=== PATIENT | female | born 1975 | race Caucasian/White ===

== ENCOUNTER 2018-06-23 16:12 | Emergency (ER) | payer OTHER, MEDICAID, SELFPAY | END 2018-06-23 19:31 | disposition left against medical advice (07) | DX: N63.10 Unspecified lump in the right breast, unspecified quadrant (principal) | CPT/HCPCS: 99281 ==

== ENCOUNTER 2018-10-11 11:54 | Emergency (ER) | payer OTHER, MEDICAID, SELFPAY ==
[2018-10-11 11:57] VITALS: BP 136/71; PULSE 92; RESP 14; TEMP 36.7; O2SAT 98; BMI 18.4
--- NOTE | 2018-10-11 12:02 | DI.RAD.S_ITS ---
PROCEDURE: XR WRIST RT MIN 3V INDICATIONS: slammed right wrist in door. TECHNIQUE: 4 views of the wrist were acquired. COMPARISON: None. FINDINGS: Bones: No fractures or dislocations. No suspicious bony lesions. Scaphoid view: Negative Soft tissues: No suspicious soft tissue calcifications. IMPRESSION: No acute fracture. No osseous lesion. If clinical suspicion and/or symptoms persist, further assessment with repeat plainfilms, or advanced imaging (e.g., CT, MRI, or bone scan) may be helpful for further assessment. Dictated by: Fazal Barragan M.D. on 10/11/2018 at 12:15 Approved by: Fazal Barragan M.D. on 10/11/2018 at 12:15
--- NOTE | 2018-10-11 12:57 | ED.UPPEXIN ---
HPI - Extremity Injury (Upper) <Glenys Lea PA-C - Last Filed: 10/11/18 15:35> General Chief Complaint: Extremity Injury, Upper Stated Complaint: RIGHT ARM SLAMMED IN DOOR Time Seen by Provider: 10/11/18 13:12 Source: patient Mode of arrival: ambulatory Limitations: no limitations History of Present Illness HPI narrative: This 43-year-old female comes to ED due to persistent right wrist pain. She is right handed. She states that her son was coming out of the bathroom and she was right behind the door, and he accidentally slammed her wrist in the door. This occurred yesterday, and she states that she has had pain since that is not getting better. She has been taking Tylenol and Motrin, and Negrito wrapped the wrist. She states range of motion really limited secondary to tenderness. She states no pain in her hand or fingers, no numbness or weakness or tingling, states it is pain that prevents her from movement. Related Data Home Medications Medication Instructions Recorded Confirmed bupropion HCl 2 tab PO QAM 06/23/18 10/11/18 dextroamphetamine-amphetamine 1 tab PO BID 06/23/18 10/11/18 hydroxyzine pamoate 1 cap PO TID PRN 06/23/18 10/11/18 quetiapine 1 tab PO BEDTIME 06/23/18 10/11/18 Previous Rx's Medication Instructions Recorded hydrocodone-acetaminophen [[place]] 1 tab PO Q4-6H PRN #4 tab 10/11/18 Allergies Allergy/AdvReac Type Severity Reaction Status Date / Time aspirin Allergy Intermediate Hives Verified 10/11/18 12:01 Review of Systems <Glenys Lea PA-C - Last Filed: 10/11/18 15:35> Review of Systems ROS Unobtainable: All systems reviewed & are unremarkable except as noted in HPI and below PFSH <Glenys Lea PA-C - Last Filed: 10/11/18 15:35> Comment: quit tob 2017, no etoh, previous drug abuse, abstinent since 2014 Exam <PAULINE Seaman Last Filed: 10/11/18 15:35> Narrative Exam Narrative: GENERAL APPEARANCE: Patient sitting comfortably, in no distress. LUNGS: Clear to auscultation bilaterally. HEART: Rate and rhythm regular without murmur, normal S1 and S2, no S3 or S4. MUSCULOSKELETAL: Perhaps trace right wrist effusion. None elsewhere. Tender over the right anterior wrist most on the medial side. Range of motion is limited secondary to tenderness. There is no tenderness over the carpal bones or fingers nor over the forearm proximal to the wrist. She holds the fingers slightly flexed, tender with full extension but able. Strength in the fingers appears intact against resistance in all tran but tender with resisted motion NEUROVASCULAR: Right hand fingers are warm and pink with brisk cap refill, sensation is grossly intact Initial Vital Signs Initial Vital Signs: Vital Signs Temperature 98.1 F 10/11/18 11:57 Pulse Rate 92 H 10/11/18 11:57 Respiratory Rate 14 10/11/18 11:57 Blood Pressure 136/71 10/11/18 11:57 Pulse Oximetry 98 10/11/18 11:57 <DO Jatin Hillman Last Filed: 10/11/18 18:55> Initial Vital Signs Initial Vital Signs: Vital Signs Temperature 98.1 F 10/11/18 11:57 Pulse Rate 92 H 10/11/18 11:57 Respiratory Rate 14 10/11/18 11:57 Blood Pressure 136/71 10/11/18 11:57 Pulse Oximetry 98 10/11/18 11:57 Course <PAULINE Seaman Last Filed: 10/11/18 15:35> Orders Ordered: ED Orders 10/11/18 12:02 XR wrist RT min 3V Stat Vital Signs - 8 hr 10/11/18 11:57 10/11/18 13:36 Temperature 98.1 F Pulse Rate 92 H 92 H Respiratory Rate 14 16 Blood Pressure 136/71 Pulse Oximetry 98 98 <DO Jatin Hillman Last Filed: 10/11/18 18:55> Orders Ordered: ED Orders 10/11/18 12:02 XR wrist RT min 3V Stat Vital Signs - 8 hr 10/11/18 11:57 10/11/18 13:36 Temperature 98.1 F Pulse Rate 92 H 92 H Respiratory Rate 14 16 Blood Pressure 136/71 Pulse Oximetry 98 98 MDM - Extremity Injury (Upper) <PAULINE Seaman Last Filed: 10/11/18 15:35> Imaging Data wrist: Radiologist's impression: [address] [address] XRay Report Signed Patient: Allison Gay DMR#: [id number] : 1975Acct:[id number] Age/Sex: 43 / FDate of Service: 10/11/18 Loc: ED Accession Number: [id number] Procedure: XR wrist RT min 3V Ordering Provider: Nilton Johnson D.O. PROCEDURE: XR WRIST RT MIN 3V INDICATIONS: slammed right wrist in door. TECHNIQUE: 4 views of the wrist were acquired. COMPARISON: None. FINDINGS: Bones: No fractures or dislocations. No suspicious bony lesions. Scaphoid view: Negative Soft tissues: No suspicious soft tissue calcifications. IMPRESSION: No acute fracture. No osseous lesion. If clinical suspicion and/or symptoms persist, further assessment with repeat plainfilms, or advanced imaging (e.g., CT, MRI, or bone scan) may be helpful for further assessment. Dictated by: Fazal Barragan M.D. on 10/11/2018 at 12:15 Approved by: Fazal Barragan M.D. on 10/11/2018 at 12:15 Discharge Plan Departure Patient Disposition: Home Clinical Impression: Contusion of right wrist, initial encounter Discharge Date/Time: 10/11/18 13:38 Interventions: ED Discharge Assessment Last Done: 10/11/18 13:36 Instructions: DI for Wrist Sprain Activity Restrictions/Additional Instructions: please return if you have acutely worsening symptoms. Otherwise, please wear the wrist splint /. Continue ibuprofen every 8 hr. Use ice as needed. You should follow up with your PCP in about a week to reassess, and you should have repeat x-rays if not getting better by that time. I have given you a few pain pills to use in the next couple of days, i.e. at bedtime if needed. Remember not to take these and drive as they could make you sleepy. Prescriptions: New hydrocodone-acetaminophen [[place]] 5-325 mg tablet 1 tab PO Q4-6H PRN (Reason: acute wrist pain) Qty: 4 RF: 0 No Action bupropion HCl 150 mg tablet extended release 12 hr 2 tab PO QAM RF: 0 dextroamphetamine-amphetamine 10 mg tablet 1 tab PO BID RF: 0 hydroxyzine pamoate 25 mg capsule 1 cap PO TID PRN (Reason: Anxiety) RF: 0 quetiapine 400 mg tablet 1 tab PO BEDTIME RF: 0 Referrals: Juan Luis Torres ARNP [Non-Staff] - <Nilton Johnson DO - Last Filed: 10/11/18 18:55> Cosign ED Attending Carmen Attestation: I was available for consultation during this patient's emergency department encounter
[2018-10-11 13:36] VITALS: PULSE 92; RESP 16; O2SAT 98
== END 2018-10-11 13:38 | disposition home or self-care (01) ==
PROVIDERS: Emergency Provider Internal Medicine
DX: S60.211A Contusion of right wrist, initial encounter (principal); W23.0XXA Caught, crushed, jammed, or pinched between moving objects, initial encounter
CPT/HCPCS: 73110; 99283

== ENCOUNTER 2018-12-16 18:57 | Emergency (ER) | payer OTHER, MEDICAID, SELFPAY ==
[2018-12-16 18:59] VITALS: BP 152/93; PULSE 105; RESP 16; TEMP 36.9; O2SAT 98; BMI 30.8
--- NOTE | 2018-12-16 19:25 | ED.ABDPAIN ---
HPI - Abdominal Pain <Glenys Lea PA-C - Last Filed: 12/16/18 22:34> General Chief Complaint: Abdominal Pain Stated Complaint: ABDOMINAL PAIN Time Seen by Provider: 12/16/18 19:25 Source: patient Mode of arrival: ambulatory Limitations: no limitations History of Present Illness HPI narrative: This 43-year-old female comes in due to abdominal pain that started this morning and has progressively worsened throughout the day. She describes this as a crampy pain initially, constant, worse with movement and car ride, a little bit better lying flat. She states that she kept down some water and coffee earlier this morning but has not had anything else to eat or drink today. She does not have any nausea or vomiting currently. She has had some chills and felt warm today but no known fever. She denies any urinary symptoms or hematuria. She denies any bowel habit changes or blood in the stools and had a normal bowel movement today. She states that she does have some headache. she states that she has had some sinus congestion the last couple of days. Her son had the flu last week. She has not had any cough or body aches. No chest pain or dyspnea or any other new complaints on systems review. She states pain is in the lower abdomen somewhat more on the right side. She denies any possibility of , monogamous with her Related Data Home Medications Medication Instructions Recorded Confirmed bupropion HCl 2 tab PO QAM 06/23/18 10/11/18 dextroamphetamine-amphetamine 1 tab PO BID 06/23/18 10/11/18 hydroxyzine pamoate 1 cap PO TID PRN 06/23/18 10/11/18 quetiapine 1 tab PO BEDTIME 06/23/18 10/11/18 Previous Rx's Medication Instructions Recorded hydrocodone-acetaminophen [Gable] 1 tab PO Q4-6H PRN #4 tab 10/11/18 oseltamivir [Tamiflu] 75 mg PO Q12H 5 Days #9 cap 12/16/18 Allergies Allergy/AdvReac Type Severity Reaction Status Date / Time aspirin Allergy Intermediate Hives Verified 10/11/18 12:01 Review of Systems <Glenys Lea PA-C - Last Filed: 12/16/18 22:34> Review of Systems ROS Unobtainable: All systems reviewed & are unremarkable except as noted in HPI and below PFSH <Glenys Lea PA-C - Last Filed: 12/16/18 22:34> Medical History ADHD (attention deficit hyperactivity disorder) evaluation (Chronic) Bipolar disorder (Chronic) Surgical History History of (Resolved) Family History (Updated 10/11/18 @ 15:31 by Glenys Lea PA-C) Other Family history non-contributory Social History Smoking Status: Former smoker Family History (Updated 10/11/18 @ 15:31 by Glenys Lea PA-C) Other Family history non-contributory Social History Smoking Status: Former smoker Exam <Glenys Lea PA-C - Last Filed: 12/16/18 22:34> Narrative Exam Narrative: GENERAL APPEARANCE: Patient resting comfortably, in no distress. HEENT: PERRL, EOMI, no scleral icterus, conjunctivae pink NECK: Supple LUNGS: Clear to auscultation bilaterally. HEART: Rate and rhythm regular, normal S1 and S2, no S3 or S4. ABDOMEN: Soft, nondistended, bowel sounds present x 4 quadrants, no masses palpable, no hepatosplenomegaly. moderate generalized tenderness to palpation, most right lower quadrant where there is some rebound. also tender right upper quadrant, +Rg sign. no guarding or rebound on the left side. Mild right CVAT.+ Joesph and obturator EXTREMITIES: No edema DERMATOLOGIC: No jaundice or exanthem NEUROLOGIC: Alert and oriented with normal speech and coordination Initial Vital Signs Initial Vital Signs: Vital Signs Temperature 98.5 F 12/16/18 18:59 Pulse Rate 105 H 12/16/18 18:59 Respiratory Rate 16 12/16/18 18:59 Blood Pressure 152/93 H 12/16/18 18:59 Pulse Oximetry 98 12/16/18 18:59 <Doni Izaguirre DO - Last Filed: 12/17/18 05:32> Initial Vital Signs Initial Vital Signs: Vital Signs Temperature 98.5 F 04/09/19 18:59 Pulse Rate 105 H 12/16/18 18:59 Respiratory Rate 16 12/16/18 18:59 Blood Pressure 152/93 H 12/16/18 18:59 Pulse Oximetry 98 12/16/18 18:59 Course <Glenys Lea PA-C - Last Filed: 12/16/18 22:34> Additional Information: Patient is feeling improved at the time of discharge. She has not had any vomiting. She is afebrile. She has been exposed to flu and has had some mild upper respiratory symptoms for the last couple of days. No concerning findings on lab work or scan today aside from positive test for influenza. Explained that we have seen some atypical presentations of influenza a with abdominal symptoms, possible inflammation/adenitis though not visualized on CT this evening. Discussed importance of serial examinations for abdominal pain, and she agrees to see her PCP tomorrow for follow-up. She will call 1st thing in the morning. She did elect to start Tamiflu, 1st dose given this evening and she will continue that tomorrow. She is sent home with Zofran in case any nausea developed along with some Percocet, and she agreed to return if any acutely worsening symptoms again in the interim Orders Ordered: ED Orders 12/16/18 20:33 Influenza A and B by PCR Rapid Stat Discontinued Medications Hydromorphone HCl (Dilaudid) 0.5 mg IV NOW ONE Stop: 12/16/18 19:41 Last Admin: 12/16/18 20:27 Dose: 0.5 mg Sodium Chloride (Normal Saline 0.9%) 1,000 mls @ 1,000 mls/hr IV BOLUS ONE Stop: 12/16/18 20:39 Last Infusion: 12/16/18 22:00 Dose: 0 mls/hr Admin: 12/16/18 20:45 Dose: 1,000 mls/hr Ketorolac Tromethamine (Toradol) 30 mg IV NOW ONE Stop: 12/16/18 19:41 Last Admin: 12/16/18 20:27 Dose: 30 mg Ondansetron HCl (Zofran Odt Prepack) 1 bottle MISC SEEINSTR ONE Stop: 12/16/18 21:36 Last Admin: 12/16/18 21:53 Dose: 1 bottle Oseltamivir Phosphate (Tamiflu) 75 mg PO NOW ONE Stop: 12/16/18 21:36 Last Admin: 12/16/18 21:53 Dose: 75 mg Oxycodone/Acetaminophen (Endocet 5/325 Prepack) 1 bottle MISC SEEINSTR ONE Stop: 12/16/18 21:36 Last Admin: 12/16/18 21:53 Dose: 1 bottle Vital Signs - 8 hr 12/16/18 22:17 Temperature 98.2 F Pulse Rate 73 Respiratory Rate 18 Blood Pressure 139/87 Pulse Oximetry 98 <Doni Izaguirre DO - Last Filed: 12/17/18 05:32> Orders Ordered: ED Orders 12/16/18 20:33 Influenza A and B by PCR Rapid Stat Discontinued Medications Hydromorphone HCl (Dilaudid) 0.5 mg IV NOW ONE Stop: 12/16/18 19:41 Last Admin: 12/16/18 20:27 Dose: 0.5 mg Sodium Chloride (Normal Saline 0.9%) 1,000 mls @ 1,000 mls/hr IV BOLUS ONE Stop: 12/16/18 20:39 Last Infusion: 12/16/18 22:00 Dose: 0 mls/hr Admin: 12/16/18 20:45 Dose: 1,000 mls/hr Ketorolac Tromethamine (Toradol) 30 mg IV NOW ONE Stop: 12/16/18 19:41 Last Admin: 12/16/18 20:27 Dose: 30 mg Ondansetron HCl (Zofran Odt Prepack) 1 bottle MISC SEEINSTR ONE Stop: 12/16/18 21:36 Last Admin: 12/16/18 21:53 Dose: 1 bottle Oseltamivir Phosphate (Tamiflu) 75 mg PO NOW ONE Stop: 12/16/18 21:36 Last Admin: 12/16/18 21:53 Dose: 75 mg Oxycodone/Acetaminophen (Endocet 5/325 Prepack) 1 bottle MISC SEEINSTR ONE Stop: 12/16/18 21:36 Last Admin: 12/16/18 21:53 Dose: 1 bottle Vital Signs - 8 hr 12/16/18 22:17 Temperature 98.2 F Pulse Rate 73 Respiratory Rate 18 Blood Pressure 139/87 Pulse Oximetry 98 MDM - Abdominal Pain <Glenys Lea PA-C - Last Filed: 12/16/18 22:34> Lab Data Attestation: I reviewed the patient's lab results. Result diagrams: 12/16/18 19:50 12/16/18 19:50 Lab Results 12/16/18 12/16/18 12/16/18 Range/Units 19:50 19:50 19:50 WBC 8.2 (4.5-11.0) X10^3/uL RBC 4.05 (4.0-5.2) X10^6/uL Hgb 12.0 (12.0-16.0) g/dL Hct 34.8 L (36-46) % MCV 85.9 (80-100) fL MCH 29.5 (26-34) PG MCHC 34.4 (30-36) % RDW 13.0 (11.6-14.8) % Plt Count 340 (150-400) X10^3/uL Neut % (Auto) 44.6 L (50-75) % Lymph % (Auto) 48.3 H (25-40) % [place] % (Auto) 5.8 (3-14) % Eos % (Auto) 0.7 L (2-4) % Baso % (Auto) 0.6 (0-2) % Neut # (Auto) 3700 (6501-2683) /uL Lymph # (Auto) 4000 (9252-6889) /uL Roane # (Auto) 500 (0-900) /uL Eos # (Auto) 100 (0-450) /uL Baso # (Auto) 100 (0-100) /uL PT (10.1-12.7) SECONDS INR (0.9-1.3) APTT (26.4-36.2) SECONDS Sodium 138 (137-145) mmol/L Potassium 3.8 (3.4-5.1) mmol/L Chloride 104 (98-107) mmol/L Carbon Dioxide 24 (22-32) mmol/L BUN 17 (7-17) mg/dL Creatinine 0.80 (0.52-1.04) mg/dL Estimated GFR > 60.0 (>60) mL/min BUN/Creatinine Ratio 21.3 (6-22) Glucose 132 H (70-100) mg/dL Lactate 1.2 (0.7-2.1) mmol/L Calcium 9.5 (8.4-10.2) mg/dL Total Bilirubin 0.4 (0.2-1.3) mg/dL AST 22 (14-36) IU/L ALT 28 (9-52) IU/L Alkaline Phosphatase 90 (38-126) U/L Total Protein 7.6 (6.3-8.2) g/dL Albumin 4.3 (3.5-5.0) g/dL Globulin 3.3 (1.7-4.1) g/dL Albumin/Globulin Ratio 1.3 (1.0-2.8) Lipase 182 (23-300) U/L Influenza A & B (PCR) (Negative) 12/16/18 12/16/18 Range/Units 19:50 20:33 WBC (4.5-11.0) X10^3/uL RBC (4.0-5.2) X10^6/uL Hgb (12.0-16.0) g/dL Hct (36-46) % MCV (80-100) fL MCH (26-34) PG MCHC (30-36) % RDW (11.6-14.8) % Plt Count (150-400) X10^3/uL Neut % (Auto) (50-75) % Lymph % (Auto) (25-40) % [place] % (Auto) (3-14) % Eos % (Auto) (2-4) % Baso % (Auto) (0-2) % Neut # (Auto) (7099-3278) /uL Lymph # (Auto) (0515-9721) /uL Roane # (Auto) (0-900) /uL Eos # (Auto) (0-450) /uL Baso # (Auto) (0-100) /uL PT 11.9 (10.1-12.7) SECONDS INR 1.0 (0.9-1.3) APTT 28 (26.4-36.2) SECONDS Sodium (137-145) mmol/L Potassium (3.4-5.1) mmol/L Chloride (98-107) mmol/L Carbon Dioxide (22-32) mmol/L BUN (7-17) mg/dL Creatinine (0.52-1.04) mg/dL Estimated GFR (>60) mL/min BUN/Creatinine Ratio (6-22) Glucose (70-100) mg/dL Lactate (0.7-2.1) mmol/L Calcium (8.4-10.2) mg/dL Total Bilirubin (0.2-1.3) mg/dL AST (14-36) IU/L ALT (9-52) IU/L Alkaline Phosphatase (38-126) U/L Total Protein (6.3-8.2) g/dL Albumin (3.5-5.0) g/dL Globulin (1.7-4.1) g/dL Albumin/Globulin Ratio (1.0-2.8) Lipase (23-300) U/L Influenza A & B (PCR) Positive, type a H (Negative) Point of care testing: Urine Dip Bedside Urine Glucose Negative Bedside Urine Bilirubin - Negative Bedside Urine Ketone - Negative Urine Specific [place] 1.010 Bedside Urine Occult Blood +++ Bedside Urine pH 5.0 Bedside Urine Protein +/- 15 Bedside Urine Urobilinogen - Negative Bedside Urine Nitrite - Negative Bedside Urine Leukocytes - Negative Esterase Imaging Data CT scan - abdomen: Radiologist's impression: [place] [address] CT Scan Report Signed Patient: Allison Gay [facility]#: [id number] : 1975Acct:[id number] Age/Sex: 43 / FDate of Service: 12/16/18 Loc: ED Accession Number: [id number] Procedure: CT abdomen pelvis w con Ordering Provider: Glenys Lea P.A-C PROCEDURE: CT ABDOMEN PELVIS W CON INDICATIONS: R.LQ and abd pain TECHNIQUE: After the administration of intravenous contrast, 5 mm thick sections acquired from the diaphragm to the symphysis. 5 mm coronal and sagittal reformats were acquired. For radiation dose reduction, the following was used: automated exposure control, adjustment of mA and/or kV according to patient size. COMPARISON: None. FINDINGS: Image quality: Excellent. ABDOMEN: Lung bases: Lung bases are clear. Heart size is normal. Solid organs: Liver is normal in size and enhancement. Gallbladder is within normal limits. Biliary system is non dilated. Pancreas enhances normally. Spleen is normal in size and enhancement. No adrenal nodules. Kidneys demonstrate normal size and enhancement, without hydronephrosis. 1.7 cm right renal cyst. Peritoneum and bowel: Small hiatal hernia. Bowel loops demonstrate normal wall thickness and caliber. No free fluid or air. The appendix is normal. Nodes and vessels: No retroperitoneal or mesenteric adenopathy by size criteria. Aorta and inferior vena cava are normal in size. Miscellaneous: No ventral hernias. PELVIS: Genitourinary: Bladder wall thickness is normal. Miscellaneous: No inguinal hernias or adenopathy. Bones: No suspicious bony lesions. No vertebral body compression fractures. IMPRESSION: 1. No acute disease process. 2. The appendix is normal. 3. No dilated loops of bowel. 4. No free fluid or free air. Dictated by: Alka Muir MD, PhD on 12/16/2018 at 21:09 Approved by: Alka Muir MD, PhD on 12/16/2018 at 21:12 <Doni Izaguirre DO - Last Filed: 12/17/18 05:32> Lab Data Lab Results 12/16/18 12/16/18 12/16/18 Range/Units 19:50 19:50 19:50 WBC 8.2 (4.5-11.0) X10^3/uL RBC 4.05 (4.0-5.2) X10^6/uL Hgb 12.0 (12.0-16.0) g/dL Hct 34.8 L (36-46) % MCV 85.9 (80-100) fL MCH 29.5 (26-34) PG MCHC 34.4 (30-36) % RDW 13.0 (11.6-14.8) % Plt Count 340 (150-400) X10^3/uL Neut % (Auto) 44.6 L (50-75) % Lymph % (Auto) 48.3 H (25-40) % Ro[place] % (Auto) 5.8 (3-14) % Eos % (Auto) 0.7 L (2-4) % Baso % (Auto) 0.6 (0-2) % Neut # (Auto) 3700 (4594-7343) /uL Lymph # (Auto) 4000 (8102-5742) /uL Roane # (Auto) 500 (0-900) /uL Eos # (Auto) 100 (0-450) /uL Baso # (Auto) 100 (0-100) /uL PT (10.1-12.7) SECONDS INR (0.9-1.3) APTT (26.4-36.2) SECONDS Sodium 138 (137-145) mmol/L Potassium 3.8 (3.4-5.1) mmol/L Chloride 104 (98-107) mmol/L Carbon Dioxide 24 (22-32) mmol/L BUN 17 (7-17) mg/dL Creatinine 0.80 (0.52-1.04) mg/dL Estimated GFR > 60.0 (>60) mL/min BUN/Creatinine Ratio 21.3 (6-22) Glucose 132 H (70-100) mg/dL Lactate 1.2 (0.7-2.1) mmol/L Calcium 9.5 (8.4-10.2) mg/dL Total Bilirubin 0.4 (0.2-1.3) mg/dL AST 22 (14-36) IU/L ALT 28 (9-52) IU/L Alkaline Phosphatase 90 (38-126) U/L Total Protein 7.6 (6.3-8.2) g/dL Albumin 4.3 (3.5-5.0) g/dL Globulin 3.3 (1.7-4.1) g/dL Albumin/Globulin Ratio 1.3 (1.0-2.8) Lipase 182 (23-300) U/L Influenza A & B (PCR) (Negative) 12/16/18 12/16/18 Range/Units 19:50 20:33 WBC (4.5-11.0) X10^3/uL RBC (4.0-5.2) X10^6/uL Hgb (12.0-16.0) g/dL Hct (36-46) % MCV (80-100) fL MCH (26-34) PG MCHC (30-36) % RDW (11.6-14.8) % Plt Count (150-400) X10^3/uL Neut % (Auto) (50-75) % Lymph % (Auto) (25-40) % [place] % (Auto) (3-14) % Eos % (Auto) (2-4) % Baso % (Auto) (0-2) % Neut # (Auto) (1071-9629) /uL Lymph # (Auto) (8504-6820) /uL Roane # (Auto) (0-900) /uL Eos # (Auto) (0-450) /uL Baso # (Auto) (0-100) /uL PT 11.9 (10.1-12.7) SECONDS INR 1.0 (0.9-1.3) APTT 28 (26.4-36.2) SECONDS Sodium (137-145) mmol/L Potassium (3.4-5.1) mmol/L Chloride (98-107) mmol/L Carbon Dioxide (22-32) mmol/L BUN (7-17) mg/dL Creatinine (0.52-1.04) mg/dL Estimated GFR (>60) mL/min BUN/Creatinine Ratio (6-22) Glucose (70-100) mg/dL Lactate (0.7-2.1) mmol/L Calcium (8.4-10.2) mg/dL Total Bilirubin (0.2-1.3) mg/dL AST (14-36) IU/L ALT (9-52) IU/L Alkaline Phosphatase (38-126) U/L Total Protein (6.3-8.2) g/dL Albumin (3.5-5.0) g/dL Globulin (1.7-4.1) g/dL Albumin/Globulin Ratio (1.0-2.8) Lipase (23-300) U/L Influenza A & B (PCR) Positive, type a H (Negative) Point of care testing: Urine Dip Bedside Urine Glucose Negative Bedside Urine Bilirubin - Negative Bedside Urine Ketone - Negative Urine Specific [place] 1.010 Bedside Urine Occult Blood +++ Bedside Urine pH 5.0 Bedside Urine Protein +/- 15 Bedside Urine Urobilinogen - Negative Bedside Urine Nitrite - Negative Bedside Urine Leukocytes - Negative Esterase Discharge Plan Departure Patient Disposition: Home Clinical Impression: Influenza A Abdominal pain Qualifiers: Abdominal location: right lower quadrant Qualified Code(s): R10.31 - Right lower quadrant pain Discharge Date/Time: 12/16/18 22:17 Interventions: ED Discharge Assessment Last Done: 12/16/18 22:17 Instructions: DI for Abdominal Pain-Adult, DI for Influenza -- Adult Activity Restrictions/Additional Instructions: As we discussed, please return if you have acutely worsening pain, or new symptoms such as vomiting or fever. Please rest at home this evening, drink clear fluids. You can take the antinausea medicine that we gave you and your tongue as needed, and you can use the oxycodone/acetaminophen as needed for pain, but do not drive as it can make you sleepy. Please call your PCP 1st thing in the morning and let them know you were seen in the emergency room with acute abdominal pain today and we advised due to follow up for recheck tomorrow. You do have influenza as well and we have given you the 1st dose of Tamiflu tonight. Your abdominal pain could be due to inflammation from that but it is certainly not typical, and you do not have inflamed lymph nodes on your CT scan. I have sent the rest of the prescription in to your pharmacy, so please pick that up in the morning to continue Prescriptions: New oseltamivir [Tamiflu] 75 mg capsule 75 mg PO Q12H 5 Days Qty: 9 RF: 0 No Action bupropion HCl 150 mg tablet extended release 12 hr 2 tab PO QAM RF: 0 dextroamphetamine-amphetamine 10 mg tablet 1 tab PO BID RF: 0 hydroxyzine pamoate 25 mg capsule 1 cap PO TID PRN (Reason: Anxiety) RF: 0 quetiapine 400 mg tablet 1 tab PO BEDTIME RF: 0 hydrocodone-acetaminophen [Gable] 5-325 mg tablet 1 tab PO Q4-6H PRN (Reason: acute wrist pain) Qty: 4 RF: 0 Referrals: Juan Luis Torres ARNP [Non-Staff] - <Doni Izaguirre DO - Last Filed: 12/17/18 05:32> Cosign ED Attending Carmen Attestation: I was immediately available in the department for consultation. Documentation has been reviewed. I agree with assessment and plan.
--- NOTE | 2018-12-16 19:28 | ED_ITS ---
HPI - Abdominal Pain <Glenys Lea PA-C - Last Filed: 12/16/18 22:34> General Chief Complaint: Abdominal Pain Stated Complaint: ABDOMINAL PAIN Time Seen by Provider: 12/16/18 19:25 Source: patient Mode of arrival: ambulatory Limitations: no limitations History of Present Illness HPI narrative: This 43-year-old female comes in due to abdominal pain that started this morning and has progressively worsened throughout the day. She describes this as a crampy pain initially, constant, worse with movement and car ride, a little bit better lying flat. She states that she kept down some water and coffee earlier this morning but has not had anything else to eat or drink today. She does not have any nausea or vomiting currently. She has had some chills and felt warm today but no known fever. She denies any urinary symptoms or hematuria. She denies any bowel habit changes or blood in the stools and had a normal bowel movement today. She states that she does have some headache. she states that she has had some sinus congestion the last couple of days. Her son had the flu last week. She has not had any cough or body aches. No chest pain or dyspnea or any other new complaints on systems review. She states pain is in the lower abdomen somewhat more on the right side. She denies any possibility of , monogamous with her Related Data Home Medications Medication Instructions Recorded Confirmed bupropion HCl 2 tab PO QAM 06/23/18 10/11/18 dextroamphetamine-amphetamine 1 tab PO BID 06/23/18 10/11/18 hydroxyzine pamoate 1 cap PO TID PRN 06/23/18 10/11/18 quetiapine 1 tab PO BEDTIME 06/23/18 10/11/18 Previous Rx's Medication Instructions Recorded hydrocodone-acetaminophen [[place]] 1 tab PO Q4-6H PRN #4 tab 10/11/18 oseltamivir [Tamiflu] 75 mg PO Q12H 5 Days #9 cap 12/16/18 Allergies Allergy/AdvReac Type Severity Reaction Status Date / Time aspirin Allergy Intermediate Hives Verified 10/11/18 12:01 Review of Systems <Glenys Lea PA-C - Last Filed: 12/16/18 22:34> Review of Systems ROS Unobtainable: All systems reviewed & are unremarkable except as noted in HPI and below PFSH <Glenys Lea PA-C - Last Filed: 12/16/18 22:34> Medical History ADHD (attention deficit hyperactivity disorder) evaluation (Chronic) Bipolar disorder (Chronic) Surgical History History of (Resolved) Family History (Updated 10/11/18 @ 15:31 by Glenys Lea PA-C) Other Family history non-contributory Social History Smoking Status: Former smoker Family History (Updated 10/11/18 @ 15:31 by Glenys Lea PA-C) Other Family history non-contributory Social History Smoking Status: Former smoker Exam <Glenys Lea PA-C - Last Filed: 12/16/18 22:34> Narrative Exam Narrative: GENERAL APPEARANCE: Patient resting comfortably, in no distress. HEENT: PERRL, EOMI, no scleral icterus, conjunctivae pink NECK: Supple LUNGS: Clear to auscultation bilaterally. HEART: Rate and rhythm regular, normal S1 and S2, no S3 or S4. ABDOMEN: Soft, nondistended, bowel sounds present x 4 quadrants, no masses palpable, no hepatosplenomegaly. moderate generalized tenderness to palpation, most right lower quadrant where there is some rebound. also tender right upper quadrant, +Rg sign. no guarding or rebound on the left side. Mild right CVAT.+ Joesph and obturator EXTREMITIES: No edema DERMATOLOGIC: No jaundice or exanthem NEUROLOGIC: Alert and oriented with normal speech and coordination Initial Vital Signs Initial Vital Signs: Vital Signs Temperature 98.5 F 12/16/18 18:59 Pulse Rate 105 H 12/16/18 18:59 Respiratory Rate 16 12/16/18 18:59 Blood Pressure 152/93 H 12/16/18 18:59 Pulse Oximetry 98 12/16/18 18:59 <Doni Izaguirre DO - Last Filed: 12/17/18 05:32> Initial Vital Signs Initial Vital Signs: Vital Signs Temperature 98.5 F 04/09/19 18:59 Pulse Rate 105 H 12/16/18 18:59 Respiratory Rate 16 12/16/18 18:59 Blood Pressure 152/93 H 12/16/18 18:59 Pulse Oximetry 98 12/16/18 18:59 Course <Glenys Lea PA-C - Last Filed: 12/16/18 22:34> Additional Information: Patient is feeling improved at the time of discharge. She has not had any vomiting. She is afebrile. She has been exposed to flu and has had some mild upper respiratory symptoms for the last couple of days. No concerning findings on lab work or scan today aside from positive test for influenza. Explained that we have seen some atypical presentations of influenza a with abdominal symptoms, possible inflammation/adenitis though not visualized on CT this evening. Discussed importance of serial examinations for abdominal pain, and she agrees to see her PCP tomorrow for follow-up. She will call 1st thing in the morning. She did elect to start Tamiflu, 1st dose given this evening and she will continue that tomorrow. She is sent home with Zofran in case any nausea developed along with some Percocet, and she agreed to return if any acutely worsening symptoms again in the interim Orders Ordered: ED Orders 12/16/18 20:33 Influenza A and B by PCR Rapid Stat Discontinued Medications Hydromorphone HCl (Dilaudid) 0.5 mg IV NOW ONE Stop: 12/16/18 19:41 Last Admin: 12/16/18 20:27 Dose: 0.5 mg Sodium Chloride (Normal Saline 0.9%) 1,000 mls @ 1,000 mls/hr IV BOLUS ONE Stop: 12/16/18 20:39 Last Infusion: 12/16/18 22:00 Dose: 0 mls/hr Admin: 12/16/18 20:45 Dose: 1,000 mls/hr Ketorolac Tromethamine (Toradol) 30 mg IV NOW ONE Stop: 12/16/18 19:41 Last Admin: 12/16/18 20:27 Dose: 30 mg Ondansetron HCl (Zofran Odt Prepack) 1 bottle MISC SEEINSTR ONE Stop: 12/16/18 21:36 Last Admin: 12/16/18 21:53 Dose: 1 bottle Oseltamivir Phosphate (Tamiflu) 75 mg PO NOW ONE Stop: 12/16/18 21:36 Last Admin: 12/16/18 21:53 Dose: 75 mg Oxycodone/Acetaminophen (Endocet 5/325 Prepack) 1 bottle MISC SEEINSTR ONE Stop: 12/16/18 21:36 Last Admin: 12/16/18 21:53 Dose: 1 bottle Vital Signs - 8 hr 12/16/18 22:17 Temperature 98.2 F Pulse Rate 73 Respiratory Rate 18 Blood Pressure 139/87 Pulse Oximetry 98 <Doni Izaguirre DO - Last Filed: 12/17/18 05:32> Orders Ordered: ED Orders 12/16/18 20:33 Influenza A and B by PCR Rapid Stat Discontinued Medications Hydromorphone HCl (Dilaudid) 0.5 mg IV NOW ONE Stop: 12/16/18 19:41 Last Admin: 12/16/18 20:27 Dose: 0.5 mg Sodium Chloride (Normal Saline 0.9%) 1,000 mls @ 1,000 mls/hr IV BOLUS ONE Stop: 12/16/18 20:39 Last Infusion: 12/16/18 22:00 Dose: 0 mls/hr Admin: 12/16/18 20:45 Dose: 1,000 mls/hr Ketorolac Tromethamine (Toradol) 30 mg IV NOW ONE Stop: 12/16/18 19:41 Last Admin: 12/16/18 20:27 Dose: 30 mg Ondansetron HCl (Zofran Odt Prepack) 1 bottle MISC SEEINSTR ONE Stop: 12/16/18 21:36 Last Admin: 12/16/18 21:53 Dose: 1 bottle Oseltamivir Phosphate (Tamiflu) 75 mg PO NOW ONE Stop: 12/16/18 21:36 Last Admin: 12/16/18 21:53 Dose: 75 mg Oxycodone/Acetaminophen (Endocet 5/325 Prepack) 1 bottle MISC SEEINSTR ONE Stop: 12/16/18 21:36 Last Admin: 12/16/18 21:53 Dose: 1 bottle Vital Signs - 8 hr 12/16/18 22:17 Temperature 98.2 F Pulse Rate 73 Respiratory Rate 18 Blood Pressure 139/87 Pulse Oximetry 98 MDM - Abdominal Pain <Glenys Lea PA-C - Last Filed: 12/16/18 22:34> Lab Data Attestation: I reviewed the patient's lab results. Result diagrams: 12/16/18 19:50 12/16/18 19:50 Lab Results 12/16/18 12/16/18 12/16/18 Range/Units 19:50 19:50 19:50 WBC 8.2 (4.5-11.0) X10^3/uL RBC 4.05 (4.0-5.2) X10^6/uL Hgb 12.0 (12.0-16.0) g/dL Hct 34.8 L (36-46) % MCV 85.9 (80-100) fL MCH 29.5 (26-34) PG MCHC 34.4 (30-36) % RDW 13.0 (11.6-14.8) % Plt Count 340 (150-400) X10^3/uL Neut % (Auto) 44.6 L (50-75) % Lymph % (Auto) 48.3 H (25-40) % [place] % (Auto) 5.8 (3-14) % Eos % (Auto) 0.7 L (2-4) % Baso % (Auto) 0.6 (0-2) % Neut # (Auto) 3700 (7593-8173) /uL Lymph # (Auto) 4000 (2002-5006) /uL [place] # (Auto) 500 (0-900) /uL Eos # (Auto) 100 (0-450) /uL Baso # (Auto) 100 (0-100) /uL PT (10.1-12.7) SECONDS INR (0.9-1.3) APTT (26.4-36.2) SECONDS Sodium 138 (137-145) mmol/L Potassium 3.8 (3.4-5.1) mmol/L Chloride 104 (98-107) mmol/L Carbon Dioxide 24 (22-32) mmol/L BUN 17 (7-17) mg/dL Creatinine 0.80 (0.52-1.04) mg/dL Estimated GFR > 60.0 (>60) mL/min BUN/Creatinine Ratio 21.3 (6-22) Glucose 132 H (70-100) mg/dL Lactate 1.2 (0.7-2.1) mmol/L Calcium 9.5 (8.4-10.2) mg/dL Total Bilirubin 0.4 (0.2-1.3) mg/dL AST 22 (14-36) IU/L ALT 28 (9-52) IU/L Alkaline Phosphatase 90 (38-126) U/L Total Protein 7.6 (6.3-8.2) g/dL Albumin 4.3 (3.5-5.0) g/dL Globulin 3.3 (1.7-4.1) g/dL Albumin/Globulin Ratio 1.3 (1.0-2.8) Lipase 182 (23-300) U/L Influenza A & B (PCR) (Negative) 12/16/18 12/16/18 Range/Units 19:50 20:33 WBC (4.5-11.0) X10^3/uL RBC (4.0-5.2) X10^6/uL Hgb (12.0-16.0) g/dL Hct (36-46) % MCV (80-100) fL MCH (26-34) PG MCHC (30-36) % RDW (11.6-14.8) % Plt Count (150-400) X10^3/uL Neut % (Auto) (50-75) % Lymph % (Auto) (25-40) % [place] % (Auto) (3-14) % Eos % (Auto) (2-4) % Baso % (Auto) (0-2) % Neut # (Auto) (2375-4304) /uL Lymph # (Auto) (6394-2484) /uL [place] # (Auto) (0-900) /uL Eos # (Auto) (0-450) /uL Baso # (Auto) (0-100) /uL PT 11.9 (10.1-12.7) SECONDS INR 1.0 (0.9-1.3) APTT 28 (26.4-36.2) SECONDS Sodium (137-145) mmol/L Potassium (3.4-5.1) mmol/L Chloride (98-107) mmol/L Carbon Dioxide (22-32) mmol/L BUN (7-17) mg/dL Creatinine (0.52-1.04) mg/dL Estimated GFR (>60) mL/min BUN/Creatinine Ratio (6-22) Glucose (70-100) mg/dL Lactate (0.7-2.1) mmol/L Calcium (8.4-10.2) mg/dL Total Bilirubin (0.2-1.3) mg/dL AST (14-36) IU/L ALT (9-52) IU/L Alkaline Phosphatase (38-126) U/L Total Protein (6.3-8.2) g/dL Albumin (3.5-5.0) g/dL Globulin (1.7-4.1) g/dL Albumin/Globulin Ratio (1.0-2.8) Lipase (23-300) U/L Influenza A & B (PCR) Positive, type a H (Negative) Point of care testing: Urine Dip Bedside Urine Glucose Negative Bedside Urine Bilirubin - Negative Bedside Urine Ketone - Negative Urine Specific [place] 1.010 Bedside Urine Occult Blood +++ Bedside Urine pH 5.0 Bedside Urine Protein +/- 15 Bedside Urine Urobilinogen - Negative Bedside Urine Nitrite - Negative Bedside Urine Leukocytes - Negative Esterase Imaging Data CT scan - abdomen: Radiologist's impression: [place] [address] CT Scan Report Signed Patient: Allison Gay [facility]#: [id number] : 1975Acct:[id number] Age/Sex: 43 / FDate of Service: 12/16/18 Loc: ED Accession Number: [id number] Procedure: CT abdomen pelvis w con Ordering Provider: Glenys Lea P.A-C PROCEDURE: CT ABDOMEN PELVIS W CON INDICATIONS: R.LQ and abd pain TECHNIQUE: After the administration of intravenous contrast, 5 mm thick sections acquired from the diaphragm to the symphysis. 5 mm coronal and sagittal reformats were acquired. For radiation dose reduction, the following was used: automated exposure control, adjustment of mA and/or kV according to patient size. COMPARISON: None. FINDINGS: Image quality: Excellent. ABDOMEN: Lung bases: Lung bases are clear. Heart size is normal. Solid organs: Liver is normal in size and enhancement. Gallbladder is within normal limits. Biliary system is non dilated. Pancreas enhances normally. Spleen is normal in size and enhancement. No adrenal nodules. Kidneys demonstrate normal size and enhancement, without hydronephrosis. 1.7 cm right renal cyst. Peritoneum and bowel: Small hiatal hernia. Bowel loops demonstrate normal wall thickness and caliber. No free fluid or air. The appendix is normal. Nodes and vessels: No retroperitoneal or mesenteric adenopathy by size criteria. Aorta and inferior vena cava are normal in size. Miscellaneous: No ventral hernias. PELVIS: Genitourinary: Bladder wall thickness is normal. Miscellaneous: No inguinal hernias or adenopathy. Bones: No suspicious bony lesions. No vertebral body compression fractures. IMPRESSION: 1. No acute disease process. 2. The appendix is normal. 3. No dilated loops of bowel. 4. No free fluid or free air. Dictated by: Alka Muir MD, PhD on 12/16/2018 at 21:09 Approved by: Alka Muir MD, PhD on 12/16/2018 at 21:12 <Doni Izaguirre DO - Last Filed: 12/17/18 05:32> Lab Data Lab Results 12/16/18 12/16/18 12/16/18 Range/Units 19:50 19:50 19:50 WBC 8.2 (4.5-11.0) X10^3/uL RBC 4.05 (4.0-5.2) X10^6/uL Hgb 12.0 (12.0-16.0) g/dL Hct 34.8 L (36-46) % MCV 85.9 (80-100) fL MCH 29.5 (26-34) PG MCHC 34.4 (30-36) % RDW 13.0 (11.6-14.8) % Plt Count 340 (150-400) X10^3/uL Neut % (Auto) 44.6 L (50-75) % Lymph % (Auto) 48.3 H (25-40) % [place] % (Auto) 5.8 (3-14) % Eos % (Auto) 0.7 L (2-4) % Baso % (Auto) 0.6 (0-2) % Neut # (Auto) 3700 (9828-9600) /uL Lymph # (Auto) 4000 (2086-2141) /uL [place] # (Auto) 500 (0-900) /uL Eos # (Auto) 100 (0-450) /uL Baso # (Auto) 100 (0-100) /uL PT (10.1-12.7) SECONDS INR (0.9-1.3) APTT (26.4-36.2) SECONDS Sodium 138 (137-145) mmol/L Potassium 3.8 (3.4-5.1) mmol/L Chloride 104 (98-107) mmol/L Carbon Dioxide 24 (22-32) mmol/L BUN 17 (7-17) mg/dL Creatinine 0.80 (0.52-1.04) mg/dL Estimated GFR > 60.0 (>60) mL/min BUN/Creatinine Ratio 21.3 (6-22) Glucose 132 H (70-100) mg/dL Lactate 1.2 (0.7-2.1) mmol/L Calcium 9.5 (8.4-10.2) mg/dL Total Bilirubin 0.4 (0.2-1.3) mg/dL AST 22 (14-36) IU/L ALT 28 (9-52) IU/L Alkaline Phosphatase 90 (38-126) U/L Total Protein 7.6 (6.3-8.2) g/dL Albumin 4.3 (3.5-5.0) g/dL Globulin 3.3 (1.7-4.1) g/dL Albumin/Globulin Ratio 1.3 (1.0-2.8) Lipase 182 (23-300) U/L Influenza A & B (PCR) (Negative) 12/16/18 12/16/18 Range/Units 19:50 20:33 WBC (4.5-11.0) X10^3/uL RBC (4.0-5.2) X10^6/uL Hgb (12.0-16.0) g/dL Hct (36-46) % MCV (80-100) fL MCH (26-34) PG MCHC (30-36) % RDW (11.6-14.8) % Plt Count (150-400) X10^3/uL Neut % (Auto) (50-75) % Lymph % (Auto) (25-40) % [place] % (Auto) (3-14) % Eos % (Auto) (2-4) % Baso % (Auto) (0-2) % Neut # (Auto) (9141-4664) /uL Lymph # (Auto) (7361-5211) /uL [place] # (Auto) (0-900) /uL Eos # (Auto) (0-450) /uL Baso # (Auto) (0-100) /uL PT 11.9 (10.1-12.7) SECONDS INR 1.0 (0.9-1.3) APTT 28 (26.4-36.2) SECONDS Sodium (137-145) mmol/L Potassium (3.4-5.1) mmol/L Chloride (98-107) mmol/L Carbon Dioxide (22-32) mmol/L BUN (7-17) mg/dL Creatinine (0.52-1.04) mg/dL Estimated GFR (>60) mL/min BUN/Creatinine Ratio (6-22) Glucose (70-100) mg/dL Lactate (0.7-2.1) mmol/L Calcium (8.4-10.2) mg/dL Total Bilirubin (0.2-1.3) mg/dL AST (14-36) IU/L ALT (9-52) IU/L Alkaline Phosphatase (38-126) U/L Total Protein (6.3-8.2) g/dL Albumin (3.5-5.0) g/dL Globulin (1.7-4.1) g/dL Albumin/Globulin Ratio (1.0-2.8) Lipase (23-300) U/L Influenza A & B (PCR) Positive, type a H (Negative) Point of care testing: Urine Dip Bedside Urine Glucose Negative Bedside Urine Bilirubin - Negative Bedside Urine Ketone - Negative Urine Specific [place] 1.010 Bedside Urine Occult Blood +++ Bedside Urine pH 5.0 Bedside Urine Protein +/- 15 Bedside Urine Urobilinogen - Negative Bedside Urine Nitrite - Negative Bedside Urine Leukocytes - Negative Esterase Discharge Plan Departure Patient Disposition: Home Clinical Impression: Influenza A Abdominal pain Qualifiers: Abdominal location: right lower quadrant Qualified Code(s): R10.31 - Right lower quadrant pain Discharge Date/Time: 12/16/18 22:17 Interventions: ED Discharge Assessment Last Done: 12/16/18 22:17 Instructions: DI for Abdominal Pain-Adult, DI for Influenza -- Adult Activity Restrictions/Additional Instructions: As we discussed, please return if you have acutely worsening pain, or new symptoms such as vomiting or fever. Please rest at home this evening, drink clear fluids. You can take the antinausea medicine that we gave you and your tongue as needed, and you can use the oxycodone/acetaminophen as needed for pain, but do not drive as it can make you sleepy. Please call your PCP 1st thing in the morning and let them know you were seen in the emergency room with acute abdominal pain today and we advised due to follow up for recheck tomorrow. You do have influenza as well and we have given you the 1st dose of Tamiflu tonight. Your abdominal pain could be due to inflammation from that but it is certainly not typical, and you do not have inflamed lymph nodes on your CT scan. I have sent the rest of the prescription in to your pharmacy, so please pick that up in the morning to continue Prescriptions: New oseltamivir [Tamiflu] 75 mg capsule 75 mg PO Q12H 5 Days Qty: 9 RF: 0 No Action bupropion HCl 150 mg tablet extended release 12 hr 2 tab PO QAM RF: 0 dextroamphetamine-amphetamine 10 mg tablet 1 tab PO BID RF: 0 hydroxyzine pamoate 25 mg capsule 1 cap PO TID PRN (Reason: Anxiety) RF: 0 quetiapine 400 mg tablet 1 tab PO BEDTIME RF: 0 hydrocodone-acetaminophen [[place]] 5-325 mg tablet 1 tab PO Q4-6H PRN (Reason: acute wrist pain) Qty: 4 RF: 0 Referrals: Juan Luis Torres ARNP [Non-Staff] - <Doni Izaguirre DO - Last Filed: 12/17/18 05:32> Cosign ED Attending Carmen Attestation: I was immediately available in the department for consultation. Documentation has been reviewed. I agree with assessment and plan.
--- NOTE | 2018-12-16 19:41 | DI.CT.S_ITS ---
PROCEDURE: CT ABDOMEN PELVIS W CON INDICATIONS: R.LQ and abd pain TECHNIQUE: After the administration of intravenous contrast, 5 mm thick sections acquired from the diaphragm to the symphysis. 5 mm coronal and sagittal reformats were acquired. For radiation dose reduction, the following was used: automated exposure control, adjustment of mA and/or kV according to patient size. COMPARISON: None. FINDINGS: Image quality: Excellent. ABDOMEN: Lung bases: Lung bases are clear. Heart size is normal. Solid organs: Liver is normal in size and enhancement. Gallbladder is within normal limits. Biliary system is non dilated. Pancreas enhances normally. Spleen is normal in size and enhancement. No adrenal nodules. Kidneys demonstrate normal size and enhancement, without hydronephrosis. 1.7 cm right renal cyst. Peritoneum and bowel: Small hiatal hernia. Bowel loops demonstrate normal wall thickness and caliber. No free fluid or air. The appendix is normal. Nodes and vessels: No retroperitoneal or mesenteric adenopathy by size criteria. Aorta and inferior vena cava are normal in size. Miscellaneous: No ventral hernias. PELVIS: Genitourinary: Bladder wall thickness is normal. Miscellaneous: No inguinal hernias or adenopathy. Bones: No suspicious bony lesions. No vertebral body compression fractures. IMPRESSION: 1. No acute disease process. 2. The appendix is normal. 3. No dilated loops of bowel. 4. No free fluid or free air. Dictated by: Alka Muir MD, PhD on 12/16/2018 at 21:09 Approved by: Alka Muir MD, PhD on 12/16/2018 at 21:12
[2018-12-16 20:08] LABS: Add Manual Diff / Slide Review NO; Basophils Absolute Auto 100 /uL (0-100); Basophils Percent Auto 0.6 % (0-2); Eosinophils Absolute Auto 100 /uL (0-450); Eosinophils Percent Auto 0.7 % (2-4); Hematocrit 34.8 % (36-46); Lymphocytes Absolute Auto 4000 /uL (1100-4500); Lymphocytes Percent Auto 48.3 % (25-40); Mean Corpuscular HGB Conc 34.4 % (30-36); Mean Corpuscular Hemoglobin 29.5 PG (26-34); Mean Corpuscular Volume 85.9 fL (80-100); Monocytes Absolute Auto 500 /uL (0-900); Monocytes Percent Auto 5.8 % (3-14); Neutrophils Absolute Auto 3700 /uL (1500-7000); Neutrophils Percent Auto 44.6 % (50-75); Platelet Count 340 X10^3/uL (150-400); Red Blood Cell Count 4.05 X10^6/uL (4.0-5.2); White Blood Cell Count 8.2 X10^3/uL (4.5-11.0)
[2018-12-16 20:15] LABS: Lactate (Lactic Acid) 1.2 mmol/L (0.7-2.1)
[2018-12-16 20:16] LABS: Alanine Aminotransferase 28 IU/L (9-52); Albumin 4.3 g/dL (3.5-5.0); Albumin Globulin Ratio 1.3 (1.0-2.8); Alkaline Phosphatase 90 U/L (38-126); Aspartate Aminotransferase 22 IU/L (14-36); BUN Creatinine Ratio 21.3 (6-22); Bilirubin Total 0.4 mg/dL (0.2-1.3); Blood Urea Nitrogen 17 mg/dL (7-17); Calcium 9.5 mg/dL (8.4-10.2); Carbon Dioxide 24 mmol/L (22-32); Chloride 104 mmol/L (98-107); Estimated Glomerular Filt Rate > 60.0 mL/min (>60); Globulin 3.3 g/dL (1.7-4.1); Glucose 132 mg/dL (70-100); HEMOLYSIS < 15 (0-50); Lipase 182 U/L (23-300); Potassium 3.8 mmol/L (3.4-5.1); Sodium 138 mmol/L (137-145); Total Protein 7.6 g/dL (6.3-8.2)
[2018-12-16 20:21] LABS: Prothrombin Time 11.9 SECONDS (10.1-12.7)
[2018-12-16 20:24] LABS: PTT Partial Thromboplastin Tim 28 SECONDS (26.4-36.2)
[2018-12-16] MEDS: KETOROLAC 60 MG/2 ML VIAL 30 MG IV (20:27)
[2018-12-16] MEDS: HYDROMORPHONE 1 MG INJ 0.5 MG IV (20:27)
[2018-12-16] MEDS: SODIUM CHLORIDE 0.9% 1,000 ML 1000 ML IV (20:45)
[2018-12-16 20:47] VITALS: BP 138/92; PULSE 76; O2SAT 97
[2018-12-16] MEDS: OSELTAMIVIR 75 MG CAPSULE PO (21:53)
[2018-12-16] MEDS: ONDANSETRON 4 MG ODT PREPACK 1 BOTTLE MISC (21:53)
[2018-12-16] MEDS: OXYCODONE/APAP 5/325 PREPACK 1 BOTTLE MISC (21:53)
[2018-12-16 22:17] VITALS: BP 139/87; PULSE 73; RESP 18; TEMP 36.8; O2SAT 98
== END 2018-12-16 22:17 | disposition home or self-care (01) ==
PROVIDERS: Emergency Provider Internal Medicine
DX: J10.1 Influenza due to other identified influenza virus with other respiratory manifestations (principal); R10.31 Right lower quadrant pain
CPT/HCPCS: 36591; 74177; 80053; 81003; 83605; 83690; 85025; 85610; 85730; 87400; 96361; 96374; 96375; 99283; 99284; J1170; J1885; Q9967

== ENCOUNTER 2020-11-07 13:44 | Emergency (ER) | payer OTHER, MEDICAID, SELFPAY ==
[2020-11-07 14:19] VITALS: BP 156/86; PULSE 69; RESP 17; TEMP 36.5; O2SAT 98
[2020-11-07 14:59] LABS: Add Manual Diff / Slide Review NO; Basophils Absolute Auto 100 /uL (0-100); Basophils Percent Auto 0.7 % (0-2); Eosinophils Absolute Auto 100 /uL (0-450); Eosinophils Percent Auto 0.7 % (2-4); Hematocrit 38.5 % (36-46); Hemoglobin 12.8 g/dL (12.0-16.0); Lymphocytes Absolute Auto 6800 /uL (1100-4500); Lymphocytes Percent Auto 43.7 % (25-40); Mean Corpuscular HGB Conc 33.1 % (30-36); Mean Corpuscular Hemoglobin 28.6 PG (26-34); Mean Corpuscular Volume 86.3 fL (80-100); Monocytes Absolute Auto 500 /uL (0-900); Monocytes Percent Auto 3.3 % (3-14); Neutrophils Absolute Auto 8000 /uL (1500-7000); Neutrophils Percent Auto 51.6 % (50-75); Platelet Count 347 X10^3/uL (150-400); Red Blood Cell Count 4.47 X10^6/uL (4.0-5.2); Red Cell Distribution Width 13.3 % (11.6-14.8); White Blood Cell Count 15.5 X10^3/uL (4.5-11.0)
[2020-11-07 15:09] LABS: Bacteria Urine None Seen
[2020-11-07 15:13] LABS: Acetaminophen < 10 ug/mL (10-30); Alanine Aminotransferase 30 IU/L (<35); Albumin 4.6 g/dL (3.5-5.0); Albumin Globulin Ratio 1.6 (1.0-2.8); Alkaline Phosphatase 80 U/L (38-126); Aspartate Aminotransferase 28 IU/L (14-36); BUN Creatinine Ratio 32.1 (6-22); Bilirubin Total 0.4 mg/dL (0.2-1.3); Blood Urea Nitrogen 18 mg/dL (7-17); Calcium 9.6 mg/dL (8.4-10.2); Carbon Dioxide 26 mmol/L (22-32); Chloride 105 mmol/L (98-107); Estimated Glomerular Filt Rate > 60.0 mL/min (>60); Ethanol (ETOH) < 10 mg/dL; Globulin 2.9 g/dL (1.7-4.1); Glucose 152 mg/dL (70-100); HEMOLYSIS < 15 (0-50); Potassium 4.5 mmol/L (3.4-5.1); Salicylate < 1.0 mg/dL (<20); Sodium 137 mmol/L (137-145); Total Protein 7.5 g/dL (6.3-8.2)
[2020-11-07 15:26] LABS: UR Morphine/Opiate cutoff 300 Negative (Negative); Ur Creatinine Normal (Normal); Ur Specific Gravity Normal (Normal); Urine Amphetamines Negative (Negative); Urine Barbiturates Negative (Negative); Urine Benzodiazepines Negative (Negative); Urine Cocaine Negative (Negative); Urine MDMA Negative (Negative); Urine Methadone Negative (Negative); Urine Methamphetamines Negative (Negative); Urine Oxycodone Negative (Negative); Urine Phencyclidine Negative (Negative); Urine Tetrahydrocannabinol Positive (Negative); Urine Tricyclic Antidepressant Negative (Negative); Urine pH Normal (Normal)
[2020-11-07 15:36] LABS: Culture Indicated Urine Cult Not Indicated; Ictotest Urine Negative (Negative); Mucus Urine 1+ (Negative); RBC Urine 0-1/HPF (0-5/HPF); Squamous Epithelial Cell Urine 0-1 /HPF (0-5/HPF); WBC Urine 0-1/HPF (0-5/HPF)
--- NOTE | 2020-11-07 15:44 | ED.PSYCH ---
HPI - Psych General Chief Complaint: Psychiatric Symptoms Stated Complaint: psychotic episode happened yesterday Time Seen by Provider: 11/07/20 15:31 Source: patient Mode of arrival: Ambulatory Limitations: no limitations History of Present Illness HPI Narrative: Patient is a 45-year-old female. She admits to having multiple issues to include prior history of drug abuse, addiction issues, bipolar, anxiety, depression, chronic suicidality. She has not been on any medications in the past 6 months. She states that she had a psychiatrist in the past but the psychiatrist ?quit? she has not followed up with anyone since then. She is here today stating that she feels like she is becoming more anxious. She states that she is seeing and hearing things occasionally. She does report having thoughts of suicide but states that this is not new for her and that she would never act on any of these thoughts. She states that ?I have too much to live for ?she states she is trying to find a mental health provider over the past couple days but everyone that she has called either is full or is not taking any new patients. She denies any drug or alcohol use. Related Data Home Medications Medication Instructions Recorded Confirmed bupropion HCl 2 tab PO QAM 06/23/18 10/11/18 dextroamphetamine-amphetamine 1 tab PO BID 06/23/18 10/11/18 hydroxyzine pamoate 1 cap PO TID PRN 06/23/18 10/11/18 quetiapine 1 tab PO BEDTIME 06/23/18 10/11/18 Previous Rx's Medication Instructions Recorded hydrocodone-acetaminophen [Orange] 1 tab PO Q4-6H PRN #4 tab 10/11/18 Allergies Allergy/AdvReac Type Severity Reaction Status Date / Time aspirin Allergy Intermediate Hives Verified 10/11/18 12:01 Review of Systems Constitutional Constitutional: Denies chills, Denies fatigue, Denies fever(s) and Denies headache(s) ENT Ears, Nose, Mouth, and Throat: Denies vertigo, Denies headache(s) and Denies disequilibrium Cardiovascular Cardiovascular: Denies chest pain and Denies dyspnea Respiratory Respiratory: Denies dyspnea Gastrointestinal Gastrointestinal: Denies abdominal pain, Denies nausea and Denies vomiting Integumentary/Breasts Skin/Breast: Denies rash Neurologic Neurologic: Denies confusion, Denies vertigo, Denies headache(s) and Denies disequilibrium Psychiatric Psychiatric: Reports anxiety, Denies confusion, Reports auditory hallucinations, Denies irritability, Reports mood swings, Reports panic attacks and Reports suicidal ideation Endocrine Endocrine: Denies fatigue Hematologic/Lymphatic On Anticoagulants: No Allergic/Immunologic Allergic/Immunologic: Denies urticaria Patient History Medical History ADHD (attention deficit hyperactivity disorder) evaluation Bipolar disorder Surgical History History of Family History (Updated 10/11/18 @ 15:31 by Glenys Lea PA-C) Other Family history non-contributory Social History Smoking Status: Former smoker Smoking Status: Former smoker alcohol intake frequency: 0-2 drinks per day Substance Use Type: does not use Exam Initial Vital Signs Initial Vital Signs: Vital Signs Temperature 97.7 F 11/07/20 14:19 Pulse Rate 69 11/07/20 14:19 Respiratory Rate 17 11/07/20 14:19 Blood Pressure 156/86 H 11/07/20 14:19 Pulse Oximetry 98 11/07/20 14:19 Const General: cooperative and comfortable Limitations: mental status not altered HENMT Head: normal to inspection and normocephalic Resp Effort & Inspection: normal respiratory effort Cardio Rate: regular rate Skin Lesions: no lesions Rashes: no rashes Neuro General: patient alert and patient awake Cognition: normal cognition Speech: speech normal Extrem General: normal to inspection Psych Appearance: grossly normal and well kempt Speech and Movement: restless Mood: anxious mood Attitude: cooperative Course Orders Ordered: ED Orders 11/07/20 14:52 Acetaminophen Stat Complete Blood Count AUTO DIFF Stat Comprehensive Metabolic Panel Stat Ethanol (ETOH) Stat Free T4, Direct Thyroxine Stat Salicylate Stat Thyroid Stimulating Hormone Stat 11/07/20 15:07 Ictotest Urine Stat Urine Drug Screen, Rapid Stat Urine Microscopic Stat 11/07/20 15:12 Consult to [employer] - Manager Economic Stat Vital Signs Vital signs: Vital Signs - 8 hr 11/07/20 14:19 Temperature 97.7 F Pulse Rate 69 Respiratory Rate 17 Blood Pressure 156/86 H Pulse Oximetry 98 MDM - Psych Lab Data Attestation: I reviewed the patient's lab results. Result diagrams: 11/07/20 14:52 11/07/20 14:52 Labs: Lab Results 11/07/20 11/07/20 11/07/20 Range/Units 14:52 14:52 14:52 WBC 15.5 H (4.5-11.0) X10^3/uL RBC 4.47 (4.0-5.2) X10^6/uL Hgb 12.8 (12.0-16.0) g/dL Hct 38.5 (36-46) % MCV 86.3 (80-100) fL MCH 28.6 (26-34) PG MCHC 33.1 (30-36) % RDW 13.3 (11.6-14.8) % Plt Count 347 (150-400) X10^3/uL Neut % (Auto) 51.6 (50-75) % Lymph % (Auto) 43.7 H (25-40) % [place] % (Auto) 3.3 (3-14) % Eos % (Auto) 0.7 L (2-4) % Baso % (Auto) 0.7 (0-2) % Neut # (Auto) 8000 H (9181-7536) /uL Lymph # (Auto) 6800 H (8076-5281) /uL [place] # (Auto) 500 (0-900) /uL Eos # (Auto) 100 (0-450) /uL Baso # (Auto) 100 (0-100) /uL Sodium 137 (137-145) mmol/L Potassium 4.5 (3.4-5.1) mmol/L Chloride 105 (98-107) mmol/L Carbon Dioxide 26 (22-32) mmol/L BUN 18 H (7-17) mg/dL Creatinine 0.56 (0.52-1.04) mg/dL Estimated GFR > 60.0 (>60) mL/min BUN/Creatinine Ratio 32.1 H (6-22) Glucose 152 H (70-100) mg/dL Calcium 9.6 (8.4-10.2) mg/dL Total Bilirubin 0.4 (0.2-1.3) mg/dL AST 28 (14-36) IU/L ALT 30 (<35) IU/L Alkaline Phosphatase 80 (38-126) U/L Total Protein 7.5 (6.3-8.2) g/dL Albumin 4.6 (3.5-5.0) g/dL Globulin 2.9 (1.7-4.1) g/dL Albumin/Globulin Ratio 1.6 (1.0-2.8) TSH 0.608 (0.47-4.68) uIU/mL Free T4 0.99 (0.78-2.19) ng/dL Ur Bilirubin Confirm (Negative) Urine RBC (0-5/HPF) Urine WBC (0-5/HPF) Ur Squamous Epith Cells (0-5/HPF) Urine Bacteria (None) Urine Mucus (Negative) Ur Culture Indicated? Salicylates < 1.0 (<20) mg/dL U Opiates 300ng/mL cut (Negative) Ur Oxycodone Screen (Negative) Urine Methadone Screen (Negative) Acetaminophen < 10 L (10-30) ug/mL Ur Barbiturates Screen (Negative) U Tricyclic Antidepress (Negative) Ur Phencyclidine Scrn (Negative) Ur Amphetamines Screen (Negative) U Methamphetamines Scrn (Negative) Ur MDMA Scrn (Ecstasy) (Negative) U Benzodiazepines Scrn (Negative) Urine Cocaine Screen (Negative) U Marijuana (THC) Screen (Negative) Ethyl Alcohol < 10 ( - 10) mg/dL 11/07/20 11/07/20 Range/Units 15:07 15:07 WBC (4.5-11.0) X10^3/uL RBC (4.0-5.2) X10^6/uL Hgb (12.0-16.0) g/dL Hct (36-46) % MCV (80-100) fL MCH (26-34) PG MCHC (30-36) % RDW (11.6-14.8) % Plt Count (150-400) X10^3/uL Neut % (Auto) (50-75) % Lymph % (Auto) (25-40) % [place] % (Auto) (3-14) % Eos % (Auto) (2-4) % Baso % (Auto) (0-2) % Neut # (Auto) (9680-1426) /uL Lymph # (Auto) (4244-0681) /uL [place] # (Auto) (0-900) /uL Eos # (Auto) (0-450) /uL Baso # (Auto) (0-100) /uL Sodium (137-145) mmol/L Potassium (3.4-5.1) mmol/L Chloride (98-107) mmol/L Carbon Dioxide (22-32) mmol/L BUN (7-17) mg/dL Creatinine (0.52-1.04) mg/dL Estimated GFR (>60) mL/min BUN/Creatinine Ratio (6-22) Glucose (70-100) mg/dL Calcium (8.4-10.2) mg/dL Total Bilirubin (0.2-1.3) mg/dL AST (14-36) IU/L ALT (<35) IU/L Alkaline Phosphatase (38-126) U/L Total Protein (6.3-8.2) g/dL Albumin (3.5-5.0) g/dL Globulin (1.7-4.1) g/dL Albumin/Globulin Ratio (1.0-2.8) TSH (0.47-4.68) uIU/mL Free T4 (0.78-2.19) ng/dL Ur Bilirubin Confirm Negative (Negative) Urine RBC 0-1/hpf (0-5/HPF) Urine WBC 0-1/hpf (0-5/HPF) Ur Squamous Epith Cells 0-1 /hpf (0-5/HPF) Urine Bacteria None seen (None) Urine Mucus 1+ H (Negative) Ur Culture Indicated? Cult not indicated Salicylates (<20) mg/dL U Opiates 300ng/mL cut Negative (Negative) Ur Oxycodone Screen Negative (Negative) Urine Methadone Screen Negative (Negative) Acetaminophen (10-30) ug/mL Ur Barbiturates Screen Negative (Negative) U Tricyclic Antidepress Negative (Negative) Ur Phencyclidine Scrn Negative (Negative) Ur Amphetamines Screen Negative (Negative) U Methamphetamines Scrn Negative (Negative) Ur MDMA Scrn (Ecstasy) Negative (Negative) U Benzodiazepines Scrn Negative (Negative) Urine Cocaine Screen Negative (Negative) U Marijuana (THC) Screen Positive H (Negative) Ethyl Alcohol ( - 10) mg/dL Point of Care Testing Test Results Negative Urine Dip Bedside Urine Glucose Negative Bedside Urine Bilirubin ++ 2 Bedside Urine Ketone - Negative Urine Specific [place] 1.030 Bedside Urine Occult Blood - Negative Bedside Urine pH 6.0 Bedside Urine Protein - Negative Bedside Urine Urobilinogen - Negative Bedside Urine Nitrite - Negative Bedside Urine Leukocytes - Negative Esterase MDM Narrative Medical decision making narrative: Patient is alert and oriented x3. Has a GCS of 15. Is not clinically intoxicated. My opinion is capacity to make decisions. She does express suicidality but states this is not new for her. She states that she has had this for a very long time and will never act on these symptoms. She feels like since she has 2 much to live for. She denies any drug use. It does appear that she has attempted to contact Mental Health providers but no one is taking any new patients. She states she is here asking for help. I did inform her that we can have social work come and evaluate her try to see we can come up with. During the time we are waiting for social Work to come evaluate the patient she went from sleeping in the room and then got up and stated that she had been here for several hours and that we were not doing anything for her so she eloped. Discharge Plan Departure Patient Disposition: Left Against Medical Advice Clinical Impression: Patient left before treatment completed Prescriptions: No Action bupropion HCl 150 mg tablet extended release 12 hr 2 tab PO QAM RF: 0 dextroamphetamine-amphetamine 10 mg tablet 1 tab PO BID RF: 0 hydroxyzine pamoate 25 mg capsule 1 cap PO TID PRN (Reason: Anxiety) RF: 0 quetiapine 400 mg tablet 1 tab PO BEDTIME RF: 0 hydrocodone-acetaminophen [Orange] 5-325 mg tablet 1 tab PO Q4-6H PRN (Reason: acute wrist pain) Qty: 4 RF: 0 Stand Alone Forms: Against Medical Advice
[2020-11-07 16:08] LABS: Free T4, Direct Thyroxine 0.99 ng/dL (0.78-2.19)
[2020-11-07 16:22] LABS: Thyroid Stimulating Hormone 0.608 uIU/mL (0.47-4.68)
--- NOTE | 2020-11-07 17:10 | PC.NURSE ---
Pt screaming at mother in room, yelling at RN I've been here 4 fucking hours and you havent done shit so im leaving and pt stormed out of department. Dr Johnson made aware. Pt ambulated out of the department with steady gait.
== END 2020-11-07 17:13 | disposition left against medical advice (07) ==
PROVIDERS: Emergency Provider Emergency Medicine
DX: F41.9 Anxiety disorder, unspecified (principal); R44.0 Auditory hallucinations
CPT/HCPCS: 36415; 80053; 80305; 80320; 80329; 81003; 81015; 81025; 84439; 84443; 85025; 99283; G0480

== ENCOUNTER 2021-09-07 13:29 | Emergency (ER) | payer OTHER, MEDICAID, SELFPAY ==
[2021-09-07 13:40] VITALS: BP 137/101; PULSE 92; RESP 14; TEMP 36.8; O2SAT 95; BMI 32.3
--- NOTE | 2021-09-07 13:50 | ED.ABDPAIN ---
HPI - Abdominal Pain <Bren EMILY ChildersP - Last Filed: 09/07/21 16:46> General Chief Complaint: Abdominal Pain Stated Complaint: No bowel movements for 7 days, pain Time Seen by Provider: 09/07/21 13:48 Source: patient Mode of arrival: Ambulatory History of Present Illness HPI narrative: 45-year-old female presents to the emergency department complaining of constipation for 7 days. She said 2 days ago she consumes magnesium citrate, yesterday she tried a fleets enema and only very small hard BMs resulted. She denies any flatulence, complains of left-sided flank pain and abdominal distension. She denies any lifestyle changes, denies consuming any fruits or vegetables over the last few days, endorses taking iron supplements for a few days early in the week and then discontinuing after finding out at least to worsening constipation. Patient is a current smoker, she endorses trying fiber, suppository, and has never had constipation like this before. Patient denies any fever, denies any nausea or vomiting, denies sharp abdominal pain, endorses only generalized left abdominal fullness and discomfort. Patient also endorses that she has not had a menses for 3 months, and she just started her menses. She denies knowing if she has perimenopause, she endorses menstruation for her started at age 15, she had 3 kids, and 3 months ago she stopped having regular periods, and today she started her most recent period. Patient also mentions it cronin when she pees. Related Data Date of Last Menstrual Period: 06/08/21 Patient : No Home Medications Medication Instructions Recorded Confirmed bupropion HCl 150 mg tablet,12 hr 2 tab PO QAM 06/23/18 10/11/18 sustained-release dextroamphetamine-amphetamine 10 1 tab PO BID 06/23/18 10/11/18 mg tablet hydroxyzine pamoate 25 mg capsule 1 cap PO TID PRN 06/23/18 10/11/18 quetiapine 400 mg tablet 1 tab PO BEDTIME 06/23/18 10/11/18 Previous Rx's Medication Instructions Recorded hydrocodone 5 mg-acetaminophen 325 1 tab PO Q4-6H PRN #4 tab 10/11/18 mg tablet ([place]) bisacodyl 10 mg rectal suppository 10 mg NM DAILY PRN 12 Days #12 ea 09/07/21 magnesium citrate 37.5 ml PO BID PRN #296 ml 09/07/21 sennosides 8.6 mg tablet (senna) 8.6 mg PO BID 7 Days #14 tab 09/07/21 Allergies Allergy/AdvReac Type Severity Reaction Status Date / Time aspirin Allergy Intermediate Hives Verified 09/07/21 13:40 Review of Systems <POONAM Liu - Last Filed: 09/07/21 16:46> Review of Systems Narrative: General: denies fever, chills Head/Neck: denies headache, neck pain Eyes: denies visual changes, eye pain Cardio: denies chest pain, palpitations Respiratory: denies shortness of breath, cough GI: denies abdominal pain, nausea, vomiting, or diarrhea : Endorses dysuria, denies hematuria MSK: denies joint pain, muscle weakness Skin: denies rash, itching Neuro: denies numbness, tingling Patient History <POONAM Liu - Last Filed: 09/07/21 16:46> Medical History (Updated 09/07/21 @ 15:42 by POONAM Liu) ADHD (attention deficit hyperactivity disorder) evaluation Bipolar disorder Surgical History History of Family History Other Family history non-contributory Social History (Updated 09/07/21 @ 14:29 by POONAM Liu) Smoking Status: Current every day smoker Smoking Status: Former smoker alcohol intake frequency: 0-2 drinks per day Substance Use Type: does not use Exam <POONAM Liu - Last Filed: 09/07/21 16:46> Narrative Exam Narrative: Independently reviewed vitals signs and nursing notes. General: Awake, alert, nontoxic, no cardiorespiratory distress Head/Neck: Atraumatic, neck full range of motion Eyes: EOMI, conjunctiva normal Nose: nares patent, no rhinorrhea Mouth/Throat: moist mucus membranes, no oral lesions Cardio: Regular rate and rhythm, no peripheral edema Respiratory: respirations unlabored without wheezing, stridor, or rales. No retractions. GI: Abdomen soft, tender to palpation over low left upper and lower quadrants, no masses palpable, Rovsing's negative, without CVA tenderness, low suspicion for peritonitis MSK: Moves all extremities, neurovascularly intact Skin: Normal capillary refill, no rash Neuro: Normal speech and cognition, normal gait Initial Vital Signs Initial Vital Signs: Vital Signs Temperature 98.2 F 09/07/21 13:40 Pulse Rate 92 H 09/07/21 13:40 Respiratory Rate 14 09/07/21 13:40 Blood Pressure 137/101 H 09/07/21 13:40 Pulse Oximetry 95 09/07/21 13:40 <Carleen Ojeda MD - Last Filed: 09/07/21 18:21> Initial Vital Signs Initial Vital Signs: Vital Signs Temperature 98.2 F 09/07/21 13:40 Pulse Rate 92 H 09/07/21 13:40 Respiratory Rate 14 09/07/21 13:40 Blood Pressure 137/101 H 09/07/21 13:40 Pulse Oximetry 95 09/07/21 13:40 Course <POONAM Liu - Last Filed: 09/07/21 16:46> Orders Ordered: ED Orders 09/07/21 13:59 CT abdomen pelvis w con Stat 09/07/21 14:30 CBC Auto Diff [Complete Blood Count AUTO DIFF] Stat CMP [Comprehensive Metabolic Panel] Stat 09/07/21 14:45 UA Complete [Urinalysis and Microscopic] Stat Discontinued Medications Bisacodyl (Bisacodyl 10 Mg Supp) 10 mg NM NOW ONE Stop: 09/07/21 15:28 Glycerin (Glycerin Supp Adult 1 Supp) 1 each NM NOW ONE Stop: 09/07/21 15:29 Last Admin: 09/07/21 15:35 Dose: 1 each Documented by: DEJA Sodium Chloride (Normal Saline 0.9%) 500 mls @ 1,000 mls/hr IV BOLUS ONE Stop: 09/07/21 14:30 Last Infusion: 09/07/21 15:22 Dose: 0 mls/hr Documented by: Admin: 09/07/21 14:34 Dose: 1,000 mls/hr Documented by: DEJA Magnesium Citrate (Magnesium Citrate 300 Ml Solution) 200 ml PO NOW ONE Stop: 09/07/21 15:28 Last Admin: 09/07/21 15:35 Dose: 200 ml Documented by: DEJA Sennosides (Sennosides 8.6 Mg Tablet) 17.2 mg PO NOW ONE Stop: 09/07/21 15:29 Last Admin: 09/07/21 15:35 Dose: 17.2 mg Documented by: DEJA Vital Signs Vital signs: Vital Signs - 8 hr 09/07/21 13:40 09/07/21 15:42 09/07/21 15:49 Temperature 98.2 F 98.5 F Pulse Rate 92 H 75 Respiratory Rate 14 16 Blood Pressure 137/101 H 133/63 Pulse Oximetry 95 97 <Carleen Ojeda MD - Last Filed: 09/07/21 18:21> Orders Ordered: ED Orders 09/07/21 13:59 CT abdomen pelvis w con Stat 09/07/21 14:30 CBC Auto Diff [Complete Blood Count AUTO DIFF] Stat CMP [Comprehensive Metabolic Panel] Stat 09/07/21 14:45 UA Complete [Urinalysis and Microscopic] Stat Discontinued Medications Bisacodyl (Bisacodyl 10 Mg Supp) 10 mg NM NOW ONE Stop: 09/07/21 15:28 Glycerin (Glycerin Supp Adult 1 Supp) 1 each NM NOW ONE Stop: 09/07/21 15:29 Last Admin: 09/07/21 15:35 Dose: 1 each Documented by: DEJA Sodium Chloride (Normal Saline 0.9%) 500 mls @ 1,000 mls/hr IV BOLUS ONE Stop: 09/07/21 14:30 Last Infusion: 09/07/21 15:22 Dose: 0 mls/hr Documented by: Admin: 09/07/21 14:34 Dose: 1,000 mls/hr Documented by: DEJA Magnesium Citrate (Magnesium Citrate 300 Ml Solution) 200 ml PO NOW ONE Stop: 09/07/21 15:28 Last Admin: 09/07/21 15:35 Dose: 200 ml Documented by: DEJA Sennosides (Sennosides 8.6 Mg Tablet) 17.2 mg PO NOW ONE Stop: 09/07/21 15:29 Last Admin: 09/07/21 15:35 Dose: 17.2 mg Documented by: DEJA Vital Signs Vital signs: Vital Signs - 8 hr 09/07/21 13:40 09/07/21 15:42 09/07/21 15:49 Temperature 98.2 F 98.5 F Pulse Rate 92 H 75 Respiratory Rate 14 16 Blood Pressure 137/101 H 133/63 Pulse Oximetry 95 97 MDM - Abdominal Pain <POONAM Liu - Last Filed: 09/07/21 16:46> Lab Data Result diagrams: 09/07/21 14:30 09/07/21 14:30 Labs: Lab Results 09/07/21 09/07/21 09/07/21 Range/Units 14:30 14:30 14:45 WBC 10.3 (4.5-11.0) X10^3/uL RBC 4.38 (4.0-5.2) X10^6/uL Hgb 12.5 (12.0-16.0) g/dL Hct 37.1 (36-46) % MCV 84.6 (80-100) fL MCH 28.6 (26-34) PG MCHC 33.8 (30-36) % RDW 13.5 (11.6-14.8) % Plt Count 291 (150-400) X10^3/uL Neut % (Auto) 39.7 L (50-75) % Lymph % (Auto) 51.5 H (25-40) % [place] % (Auto) 5.8 (3-14) % Eos % (Auto) 2.3 (2-4) % Baso % (Auto) 0.7 (0-2) % Neut # (Auto) 4100 (5208-8007) /uL Lymph # (Auto) 5300 H (8749-2753) /uL [place] # (Auto) 600 (0-900) /uL Eos # (Auto) 200 (0-450) /uL Baso # (Auto) 100 (0-100) /uL Sodium 136 L (137-145) mmol/L Potassium 4.1 (3.4-5.1) mmol/L Chloride 102 (98-107) mmol/L Carbon Dioxide 27 (22-32) mmol/L BUN 12 (7-17) mg/dL Creatinine 0.61 (0.52-1.04) mg/dL Estimated GFR > 60.0 (>60) mL/min BUN/Creatinine Ratio 19.7 (6-22) Glucose 232 H (70-100) mg/dL Calcium 9.3 (8.4-10.2) mg/dL Total Bilirubin 0.3 (0.2-1.3) mg/dL AST 32 (14-36) IU/L ALT 41 H (<35) IU/L Alkaline Phosphatase 79 (38-126) U/L Total Protein 7.0 (6.3-8.2) g/dL Albumin 4.2 (3.5-5.0) g/dL Globulin 2.8 (1.7-4.1) g/dL Albumin/Globulin Ratio 1.5 (1.0-2.8) Urine Color Yellow Urine Appearance Clear Urine pH 5.5 (4.5-8.0) Ur Specific Riley 1.015 (1.000-1.035) Urine Protein Negative (Negative) Urine Glucose (UA) 3+ H (Negative) g/dL Urine Ketones Negative (NEGATIVE) Urine Occult Blood Negative (Negative) Urine Nitrate Negative (Negative) Urine Bilirubin Negative (NEGATIVE) Urine Urobilinogen 0.2 (0.2) E.U./dL Ur Leukocyte Esterase Negative (NEGATIVE) Urine RBC None seen (0-5/HPF) Urine WBC None seen (0-5/HPF) Urine Bacteria None seen (None) Ur Culture Indicated? Cult not indicated Point of care testing: Point of Care Testing Test Results Negative Imaging Data CT scan - abdomen/pelvis: Radiologist's Impression: PROCEDURE:? CT ABDOMEN PELVIS W CON ? INDICATIONS:? constipation vs bowel obstruction/perforation, lt flank pain ? TECHNIQUE:? After the administration of oral and IV contrast, axial sections were acquired from the lung bases to the pubic symphysis.? Coronal and sagittal reformats were performed.? For radiation dose reduction, the following was used:? automated exposure control, adjustment of mA and/or kV according to patient size. ? COMPARISON:? [facility], CT, CT ABDOMEN PELVIS W CON, 12/16/2018, 20:22. ? FINDINGS:? Image quality:? Excellent.? ? Lung bases:? Unremarkable.? ? Heart:? No significant findings. ? ? ABDOMEN: Liver:? Decreased attenuation, compatible with hepatic steatosis.? Measures 22.1 cm in length. Gallbladder:? Contracted gallbladder. Biliary ducts:? Unremarkable.? ? Pancreas:? Unremarkable.? ? Spleen:? Unremarkable.? ? Adrenal Glands:? Unremarkable.? ? Kidneys and Ureters:? Symmetric enhancement evidence of obstructive uropathy.? 1.6 cm hypoattenuating lesion in the right interpolar region, most consistent with a cyst. ? ? Stomach and Bowel:? No evidence of intestinal obstruction or inflammatory change.? 1 cm fat attenuation lesion in the jejunal, compatible with a lipoma.? The appendix appears normal. Peritoneum:? No abnormal intraperitoneal fluid.? No free air.? ? Ventral Wall: ? Trace fat containing periumbilical hernia.? Abdominal Nodes:? No retroperitoneal or mesenteric adenopathy by size criteria.? Vessels:? Aorta and inferior vena cava are normal in size.? ? PELVIS: Pelvic Organs:? Unremarkable.? ? Bladder:? Not well distended.? ? Pelvic Nodes: No enlarged lymph nodes.? Miscellaneous: No inguinal hernias are seen. ? ? ? Bones:? Unremarkable.? IMPRESSION:? ? 1. No significant abnormality.? 2. Hepatic steatosis with enlargement.? ? ? Dictated by: Devon Chapman M.D. on 09/07/2021 at 15:14 ? ? Approved by: Devon Chapman M.D. on 09/07/2021 at 15:23 ? [facility] Narrative Medical decision making narrative: 45-year-old female presents to emergency department for 7 days of constipation and abdominal pain. Patient had tried magnesium citrate 2 days ago at home, a Fleet's enema yesterday with only 1 small hard BM. Patient declined a rectal exam as well as disimpaction if stool was present in the rectal vault, she was instructed on how to do this at home and states that she will try this when she gets home. CT abdomen pelvis was obtained as patient was worried about of bowel perforation and was tender over her left abdomen to palpation. CT abdomen pelvis with contrast shows a moderate amount of stool without intestinal obstruction or inflammatory change, and hepatic steatosis with enlargement was also seen. Patient was given magnesium citrate in the emergency department as well as a glycerin suppository and PO senna. She was prescribed senna, Mag citrate and bisacodyl suppositories and instructed how to use at home before and after bowel movements. She was also educated on increasing her fiber with for to his troubles, she understands to increase her p.o. fluids as well over the next few days. Differential includes bowel obstruction, biliary duct obstruction, appendicitis, chronic constipation, ischemic bowel. Patient is appropriate and amenable to discharge home. Vital signs are stable on repeat examination is unremarkable. Patient has been informed of results. Patient has been given strict return to ER precautions for any new or worsening symptoms. Patient understands to follow up closely with outpatient providers as instructed. Patient understands plan and agrees to discharge home. All questions and concerns answered at this time. <Carleen Ojeda MD - Last Filed: 09/07/21 18:21> Lab Data Labs: Lab Results 09/07/21 09/07/21 09/07/21 Range/Units 14:30 14:30 14:45 WBC 10.3 (4.5-11.0) X10^3/uL RBC 4.38 (4.0-5.2) X10^6/uL Hgb 12.5 (12.0-16.0) g/dL Hct 37.1 (36-46) % MCV 84.6 (80-100) fL MCH 28.6 (26-34) PG MCHC 33.8 (30-36) % RDW 13.5 (11.6-14.8) % Plt Count 291 (150-400) X10^3/uL Neut % (Auto) 39.7 L (50-75) % Lymph % (Auto) 51.5 H (25-40) % [place] % (Auto) 5.8 (3-14) % Eos % (Auto) 2.3 (2-4) % Baso % (Auto) 0.7 (0-2) % Neut # (Auto) 4100 (3873-7476) /uL Lymph # (Auto) 5300 H (6187-4044) /uL [place] # (Auto) 600 (0-900) /uL Eos # (Auto) 200 (0-450) /uL Baso # (Auto) 100 (0-100) /uL Sodium 136 L (137-145) mmol/L Potassium 4.1 (3.4-5.1) mmol/L Chloride 102 (98-107) mmol/L Carbon Dioxide 27 (22-32) mmol/L BUN 12 (7-17) mg/dL Creatinine 0.61 (0.52-1.04) mg/dL Estimated GFR > 60.0 (>60) mL/min BUN/Creatinine Ratio 19.7 (6-22) Glucose 232 H (70-100) mg/dL Calcium 9.3 (8.4-10.2) mg/dL Total Bilirubin 0.3 (0.2-1.3) mg/dL AST 32 (14-36) IU/L ALT 41 H (<35) IU/L Alkaline Phosphatase 79 (38-126) U/L Total Protein 7.0 (6.3-8.2) g/dL Albumin 4.2 (3.5-5.0) g/dL Globulin 2.8 (1.7-4.1) g/dL Albumin/Globulin Ratio 1.5 (1.0-2.8) Urine Color Yellow Urine Appearance Clear Urine pH 5.5 (4.5-8.0) Ur Specific [place] 1.015 (1.000-1.035) Urine Protein Negative (Negative) Urine Glucose (UA) 3+ H (Negative) g/dL Urine Ketones Negative (NEGATIVE) Urine Occult Blood Negative (Negative) Urine Nitrate Negative (Negative) Urine Bilirubin Negative (NEGATIVE) Urine Urobilinogen 0.2 (0.2) E.U./dL Ur Leukocyte Esterase Negative (NEGATIVE) Urine RBC None seen (0-5/HPF) Urine WBC None seen (0-5/HPF) Urine Bacteria None seen (None) Ur Culture Indicated? Cult not indicated Point of care testing: Point of Care Testing Test Results Negative Discharge Plan Departure Patient Disposition: Home Clinical Impression: Constipation, Hepatic steatosis Instructions: DI for Constipation Activity Restrictions/Additional Instructions: *You have been diagnosed with constipation. Please increase your hydration over the next few days, when you get home, prior to putting her suppository in, see if you can feel any stool in your rectum, if you can try to break it apart that will help a bowel movement start it is acting like a plug. Then, put the suppository in and wait at least 15 minutes and try to have a bowel movement. Please do not strain to hard, attempt to break up any stool that you may feel in your rectum. Please take senna morning and night to help dry in water to your stool, please use the bisacodyl suppositories daily until you have regular bowel movements, please take the magnesium citrate according to the instructions on the bottle, or until you have a regular bowel movement. Please return to the emergency department if you have any blood in her stool, develop a fever, are unable to have a bowel movement after couple days, or if you have any new or worsening symptoms. Wishing you luck. *What to do: *Please continue to take your regular medications as directed. [ x] New medication prescriptions sent to your pharmacy: [[facility] ] [ ] New medication written as a paper prescription [ ] No new medications given *Please follow up with your primary care provider in 2-3 days, call for an appointment. Let them know you were seen in the Emergency Department and that we ask that you be seen in follow up. We will electronically transmit a record of today's note if your PCP is in our system *If you do not have a primary care provider please contact the [facility] Resource line at [phone]. They will ask some questions about your medical history and help get you set up with a doctor in the community. *Return to Emergency Department if you should have any new, worsening or concerning symptoms, such as [fever greater than 101F, chills, worsening pain, persistent vomiting or other bothersome symptoms] Prescriptions: New magnesium citrate Solution 37.5 ml PO BID PRN (Reason: constipation) Qty: 296 0RF sennosides [senna] 8.6 mg tablet 8.6 mg PO BID 7 Days Qty: 14 0RF bisacodyl 10 mg suppository 10 mg NM DAILY PRN (Reason: constipation) 12 Days Qty: 12 0RF No Action bupropion HCl 150 mg tablet extended release 12 hr 2 tab PO QAM 0RF dextroamphetamine-amphetamine 10 mg tablet 1 tab PO BID 0RF Label Comments: take 1 tablet by mouth twice a day hydroxyzine pamoate 25 mg capsule 1 cap PO TID PRN (Reason: Anxiety) 0RF Label Comments: take 1 capsule by mouth UP TO three times a day if needed for anxiety quetiapine 400 mg tablet 1 tab PO BEDTIME 0RF Label Comments: take 1 tablet by mouth at bedtime hydrocodone-acetaminophen [[place]] 5-325 mg tablet 1 tab PO Q4-6H PRN (Reason: acute wrist pain) Qty: 4 0RF <Carleen Ojeda MD - Last Filed: 09/07/21 18:21> Cosign ED Attending Cosignature Attestation: I was immediately available in the department for consultation throughout this patient's visit. I agree with documentation as above. Carleen Ojeda MD
--- NOTE | 2021-09-07 13:59 | DI.CT.S_ITS ---
PROCEDURE: CT ABDOMEN PELVIS W CON INDICATIONS: constipation vs bowel obstruction/perforation, lt flank pain TECHNIQUE: After the administration of oral and IV contrast, axial sections were acquired from the lung bases to the pubic symphysis. Coronal and sagittal reformats were performed. For radiation dose reduction, the following was used: automated exposure control, adjustment of mA and/or kV according to patient size. COMPARISON: [facility], CT, CT ABDOMEN PELVIS W CON, 12/16/2018, 20:22. FINDINGS: Image quality: Excellent. Lung bases: Unremarkable. Heart: No significant findings. ABDOMEN: Liver: Decreased attenuation, compatible with hepatic steatosis. Measures 22.1 cm in length. Gallbladder: Contracted gallbladder. Biliary ducts: Unremarkable. Pancreas: Unremarkable. Spleen: Unremarkable. Adrenal Glands: Unremarkable. Kidneys and Ureters: Symmetric enhancement evidence of obstructive uropathy. 1.6 cm hypoattenuating lesion in the right interpolar region, most consistent with a cyst. Stomach and Bowel: No evidence of intestinal obstruction or inflammatory change. 1 cm fat attenuation lesion in the jejunal, compatible with a lipoma. The appendix appears normal. Peritoneum: No abnormal intraperitoneal fluid. No free air. Ventral Wall: Trace fat containing periumbilical hernia. Abdominal Nodes: No retroperitoneal or mesenteric adenopathy by size criteria. Vessels: Aorta and inferior vena cava are normal in size. PELVIS: Pelvic Organs: Unremarkable. Bladder: Not well distended. Pelvic Nodes: No enlarged lymph nodes. Miscellaneous: No inguinal hernias are seen. Bones: Unremarkable. IMPRESSION: 1. No significant abnormality. 2. Hepatic steatosis with enlargement. Dictated by: Deovn Chapman M.D. on 09/07/2021 at 15:14 Approved by: Devon Chapman M.D. on 09/07/2021 at 15:23
[2021-09-07] MEDS: SODIUM CHLORIDE 0.9% 500 ML 1000 ML IV (14:34)
[2021-09-07 14:50] LABS: Add Manual Diff / Slide Review NO; Basophils Absolute Auto 100 /uL (0-100); Basophils Percent Auto 0.7 % (0-2); Eosinophils Absolute Auto 200 /uL (0-450); Eosinophils Percent Auto 2.3 % (2-4); Hematocrit 37.1 % (36-46); Hemoglobin 12.5 g/dL (12.0-16.0); Lymphocytes Absolute Auto 5300 /uL (1100-4500); Lymphocytes Percent Auto 51.5 % (25-40); Mean Corpuscular HGB Conc 33.8 % (30-36); Mean Corpuscular Hemoglobin 28.6 PG (26-34); Mean Corpuscular Volume 84.6 fL (80-100); Monocytes Absolute Auto 600 /uL (0-900); Monocytes Percent Auto 5.8 % (3-14); Neutrophils Absolute Auto 4100 /uL (1500-7000); Neutrophils Percent Auto 39.7 % (50-75); Platelet Count 291 X10^3/uL (150-400); Red Blood Cell Count 4.38 X10^6/uL (4.0-5.2); Red Cell Distribution Width 13.5 % (11.6-14.8); White Blood Cell Count 10.3 X10^3/uL (4.5-11.0)
[2021-09-07 14:51] LABS: Appearance Urine UA CLEAR; Bilirubin Urine UA NEGATIVE (NEGATIVE); Color Urine UA YELLOW; Glucose Urine UA 3+ g/dL (Negative); Ketones Urine UA NEGATIVE (NEGATIVE); Leukocyte Esterase Urine UA NEGATIVE (NEGATIVE); Nitrite Urine UA NEGATIVE (Negative); Occult Blood Urine UA NEGATIVE (Negative); Protein Urine UA NEGATIVE (Negative); Specific Gravity Urine UA 1.015 (1.000-1.035); Urobilinogen Urine UA 0.2 E.U./dL (0.2)
[2021-09-07 14:53] LABS: Alanine Aminotransferase 41 IU/L (<35); Albumin 4.2 g/dL (3.5-5.0); Albumin Globulin Ratio 1.5 (1.0-2.8); Alkaline Phosphatase 79 U/L (38-126); Aspartate Aminotransferase 32 IU/L (14-36); BUN Creatinine Ratio 19.7 (6-22); Bilirubin Total 0.3 mg/dL (0.2-1.3); Blood Urea Nitrogen 12 mg/dL (7-17); Calcium 9.3 mg/dL (8.4-10.2); Carbon Dioxide 27 mmol/L (22-32); Chloride 102 mmol/L (98-107); Estimated Glomerular Filt Rate > 60.0 mL/min (>60); Globulin 2.8 g/dL (1.7-4.1); Glucose 232 mg/dL (70-100); HEMOLYSIS < 15 (0-50); Potassium 4.1 mmol/L (3.4-5.1); Sodium 136 mmol/L (137-145)
[2021-09-07 14:56] LABS: pH Urine UA 5.5 (4.5-8.0)
[2021-09-07 14:59] LABS: Bacteria Urine None Seen; RBC Urine None Seen (0-5/HPF); WBC Urine None Seen (0-5/HPF)
[2021-09-07 15:00] LABS: Culture Indicated Urine Cult Not Indicated
[2021-09-07] MEDS: MAGNESIUM CITRATE 300 ML SOLUTION 200 ML PO (15:35)
[2021-09-07] MEDS: SENNOSIDES 8.6 MG TABLET 17.2 MG PO (15:35)
[2021-09-07] MEDS: GLYCERIN SUPP ADULT 1 SUPP 1 EACH PR (15:35)
[2021-09-07 15:42] VITALS: BP 133/63; PULSE 75; RESP 16; O2SAT 97
[2021-09-07 15:49] VITALS: TEMP 36.9
== END 2021-09-07 15:50 | disposition home or self-care (01) ==
PROVIDERS: Emergency Provider Nurse Practitioner Critical Care Medicine
DX: K59.00 Constipation, unspecified (principal); K76.0 Fatty (change of) liver, not elsewhere classified
CPT/HCPCS: 36415; 74177; 80053; 81001; 81025; 85025; 96360; 99284; Q9967

== ENCOUNTER 2024-09-16 05:02 | Emergency (ER) | payer OTHER, SELFPAY ==
[2024-09-16] VITALS (135 sets, daily range): BP systolic 62–170; BP diastolic 41–110; PULSE 121–155; RESP 13–52; TEMP 36.6–40.2; O2SAT 85–100; BMI 29.5
--- NOTE | 2024-09-16 05:21 | DI.RAD.S_ITS ---
PROCEDURE: XR CHEST 1V INDICATIONS: dyspnea, chest pain TECHNIQUE: One view of the chest was acquired. COMPARISON: [facility], CT, CT ANGIO CHEST, 09/16/2024, 6:39. FINDINGS: Surgical changes and devices: None. Lungs and pleura: Multifocal consolidation, concerning for atypical pneumonia. Mediastinum: Mediastinal contours appear normal. Heart size is normal. Bones and chest wall: No suspicious bony lesions. Overlying soft tissues appear unremarkable. IMPRESSION: Multifocal consolidation, concerning for viral pneumonia. Please see same day chest CT for further discussion. Dictated by: Des Marie M.D. on 09/16/2024 at 7:36 Approved by: Des Marie M.D. on 09/16/2024 at 7:38
--- NOTE | 2024-09-16 05:24 | EKG_ITS ---
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
--- NOTE | 2024-09-16 05:24 | ED_ITS ---
HPI - SOB/Dyspnea <Ada Phelps MD - Last Filed: 09/16/24 23:24> General Chief Complaint: Shortness of Breath/Dyspnea Stated Complaint: hard time breathing Time Seen by Provider: 09/16/24 05:20 Source: patient Mode of arrival: Ambulatory Limitations: no limitations History of Present Illness HPI Narrative: 48-year-old female with history of asthma presents by private vehicle from home for 2-3 days of cough and shortness of breath. Symptoms started as an upper respiratory infection, but the cough worsened and this evening she began to have shortness of breath. She has been using her inhaler at home without relief. Patient noted to be tachycardic and tachypneic on arrival, saturating 94% on room air. Patient appearing to wheeze, however on pulmonary exam lungs are clear and wheezing is referred upper airway noise. Related Data Home Medications Medication Instructions Recorded Confirmed bupropion HCl 150 mg tablet,12 hr 2 tab PO QAM 06/23/18 10/11/18 sustained-release dextroamphetamine-amphetamine 10 1 tab PO BID 06/23/18 10/11/18 mg tablet hydroxyzine pamoate 25 mg capsule 1 cap PO TID PRN Anxiety 06/23/18 10/11/18 quetiapine 400 mg tablet 1 tab PO BEDTIME 06/23/18 10/11/18 Previous Rx's Medication Instructions Recorded hydrocodone 5 mg-acetaminophen 325 1 tab PO Q4-6H PRN acute wrist 10/11/18 mg tablet ([place]) pain #4 tabs magnesium citrate 37.5 ml PO BID PRN constipation 09/07/21 #296 mL Allergies Allergy/AdvReac Type Severity Reaction Status Date / Time aspirin Allergy Intermediate Hives Verified 09/07/21 13:40 Review of Systems <Carl Pineda MD - Last Filed: 09/18/24 08:53> Review of Systems Narrative: GENERAL: Negative chills, fatigue, malaise, fever, sweats. HEENT: Negative sinus pain, ear pain, sore throat RESPIRATORY: Positive dyspnea, cough CARDIOVASCULAR: Negative chest pain, palpitations GASTROINTESTINAL: Negative nausea, vomiting, abdominal pain : Negative dysuria, frequency, hematuria MUSCULOSKELETAL: Negative muscle or bony pain SKIN: Negative rash, skin lesions NEUROLOGIC: Negative weakness, numbness ROS Unobtainable: All systems reviewed & are unremarkable except as noted in HPI and below Patient History <Ada Phelps MD - Last Filed: 09/16/24 23:24> Medical History (Updated 09/18/24 @ 08:53 by Carl Pineda MD) Bipolar disorder ADHD (attention deficit hyperactivity disorder) evaluation Surgical History History of Family History Other Family history non-contributory Social History (Updated 09/07/21 @ 14:29 by POONAM Liu) Smoking Status: Current every day smoker Smoking Status: Current every day smoker alcohol intake frequency: 0-2 drinks per day Exam <Ada Phelps MD - Last Filed: 09/16/24 23:24> Initial Vital Signs Initial Vital Signs: Vital Signs Temperature 97.8 F 09/16/24 05:18 Pulse Rate 138 H 09/16/24 05:18 Respiratory Rate 29 H 09/16/24 05:18 Blood Pressure 136/75 09/16/24 05:18 Pulse Oximetry 94 09/16/24 05:18 Oxygen Delivery Method Room Air 09/16/24 05:18 <Carl Pineda MD - Last Filed: 09/18/24 08:53> Narrative Exam Narrative: GENERAL: in no distress, not toxic not dyspneic HEAD: Normocephalic. EYES: Pupils equal round ENT: Mucous membranes moist. NECK: Trachea midline. CARDIOVASCULAR: Regular rate and rhythm tachycardia RESPIRATORY: Clear to auscultation. Breath sounds equal bilaterally. No wheezes, rales, or rhonchi. GASTROINTESTINAL: Abdomen soft, non-tender EXTREMITIES: No gross deformities. BACK: No flank tenderness. NEURO: AOx4. SKIN: Warm and dry PSYCH: Not anxious, is cooperative Initial Vital Signs Initial Vital Signs: Vital Signs Temperature 97.8 F 09/16/24 05:18 Pulse Rate 138 H 09/16/24 05:18 Respiratory Rate 29 H 09/16/24 05:18 Blood Pressure 136/75 09/16/24 05:18 Pulse Oximetry 94 09/16/24 05:18 Oxygen Delivery Method Room Air 09/16/24 05:18 Procedures <Carl Pineda MD - Last Filed: 09/18/24 08:53> Intubation Time of Intubation: 09:58 Time out performed: Yes sedative: other (Propofol) Mg Given: 100 paralytic: Rocuronium Mg Given: 30 Laryngoscope: other ([place] scope) ET Tube Size: 7.5 ET Tube Uncuffed: No Tube Secured Depth (cm): 23 Tube Secured Location: lips Tube Placement Confirmation: Visualized tube passing through cords, Confirmation by capnometry and Chest Xray Patient Tolerated Procedure: Well Intubation Complications: none Course <Ada Phelps MD - Last Filed: 09/16/24 23:24> Orders Ordered: Discontinued Medications Albuterol (Albuterol 2.5 Mg/3 Ml Neb (Adult)) 5 mg INH NOW ONE Stop: 09/16/24 08:20 Last Admin: 09/16/24 08:21 Dose: 5 mg Documented By: EDUARDO Albuterol/Ipratropium (Albuterol/Ipratropium 3 Ml Ampul) 3 ml INH NOW ONE Stop: 09/16/24 05:21 Last Admin: 09/16/24 05:25 Dose: 3 ml Documented By: Hydromorphone HCl (Hydromorphone 1 Mg Inj) 1 mg IV NOW ONE Stop: 09/16/24 08:02 Last Admin: 09/16/24 08:30 Dose: 1 mg Documented By: DEBRA Ceftriaxone Sodium 2,000 mg/ (Sodium Chloride) 100 mls @ 200 mls/hr IV NOW ONE Stop: 09/16/24 07:47 Last Infusion: 09/16/24 08:55 Dose: Infused Documented By: Admin: 09/16/24 07:55 Dose: 200 mls/hr Documented By: DEBRA Doxycycline Hyclate 100 mg/ (Sodium Chloride) 100 mls @ 100 mls/hr IV NOW ONE Stop: 09/16/24 07:47 Last Infusion: 09/16/24 09:58 Dose: Infused Documented By: Admin: 09/16/24 08:55 Dose: 100 mls/hr Documented By: DEBRA Sodium Chloride (Normal Saline 0.9%) 1,000 mls @ 1,000 mls/hr IV BOLUS ONE Stop: 09/16/24 09:40 Last Infusion: 09/16/24 13:14 Dose: Infused Documented By: Admin: 09/16/24 09:04 Dose: 1,000 mls/hr Documented By: DEBRA Fentanyl 1,000 mcg/ Dextrose 250 mls @ 15.876 mls/hr IV TITRATE MIKI; Protocol Last Titration: 09/16/24 21:48 Dose: Infused Documented By: Admin: 09/16/24 20:42 Dose: 2 mcg/kg/hr, 45.359 mls/hr Documented By: Titration: 09/16/24 20:42 Dose: Infused Documented By: Admin: 09/16/24 17:10 Dose: 2 mcg/kg/hr, 45.359 mls/hr Documented By: Titration: 09/16/24 17:09 Dose: Infused Documented By: Titration: 09/16/24 14:57 Dose: 2 mcg/kg/hr, 45.359 mls/hr Documented By: Titration: 09/16/24 11:05 Dose: 1.5 mcg/kg/hr, 34.019 mls/hr Documented By: Titration: 09/16/24 10:51 Dose: 1 mcg/kg/hr, 22.68 mls/hr Documented By: Admin: 09/16/24 09:58 Dose: 0.7 mcg/kg/hr, 15.876 mls/hr Documented By: DEBRA Propofol (Diprivan) 1,000 mg in 100 mls @ 2.722 mls/hr IV TITRATE MIKI; Protocol Last Titration: 09/16/24 21:49 Dose: Infused Documented By: Admin: 09/16/24 20:41 Dose: 30 mcg/kg/min, 16.329 mls/hr Documented By: Titration: 09/16/24 20:41 Dose: Infused Documented By: Admin: 09/16/24 17:58 Dose: 30 mcg/kg/min, 16.329 mls/hr Documented By: Titration: 09/16/24 17:57 Dose: Infused Documented By: Titration: 09/16/24 14:58 Dose: 30 mcg/kg/min, 16.329 mls/hr Documented By: Titration: 09/16/24 12:08 Dose: 25 mcg/kg/min, 13.608 mls/hr Documented By: Titration: 09/16/24 11:52 Dose: 20 mcg/kg/min, 10.886 mls/hr Documented By: Titration: 09/16/24 11:51 Dose: 15 mcg/kg/min, 8.165 mls/hr Documented By: Titration: 09/16/24 10:50 Dose: 12.5 mcg/kg/min, 6.804 mls/hr Documented By: Titration: 09/16/24 10:34 Dose: 10 mcg/kg/min, 5.443 mls/hr Documented By: Admin: 09/16/24 09:59 Dose: 5 mcg/kg/min, 2.722 mls/hr Documented By: EDBRA Acetaminophen (Ofirmev) 1,000 mg in 100 mls @ 400 mls/hr IV Q6H PRN PRN Reason: Fever/Mild Pain (1-3) Last Infusion: 09/16/24 17:25 Dose: Infused Documented By: Admin: 09/16/24 16:55 Dose: 400 mls/hr Documented By: Infusion: 09/16/24 11:40 Dose: Infused Documented By: Admin: 09/16/24 10:50 Dose: 400 mls/hr Documented By: DEBRA Sodium Chloride (Normal Saline 0.9%) 1,000 mls @ 1,000 mls/hr IV BOLUS ONE Stop: 09/16/24 11:50 Last Infusion: 09/16/24 13:14 Dose: Infused Documented By: Admin: 09/16/24 11:36 Dose: 1,000 mls/hr Documented By: DEBRA INSULIN DRIP PREMIX (Myxredlin Drip Premix) 100 unit in 100 mls @ 1 mls/hr IV CONT MIKI; Protocol Last Admin: 09/16/24 13:42 Dose: Not Given Documented By: LUDWIN Sodium Chloride (Normal Saline 0.9%) 1,000 mls @ 1,000 mls/hr IV BOLUS ONE Stop: 09/16/24 13:05 Last Admin: 09/16/24 13:42 Dose: Not Given Documented By: LUDWIN Dextrose/Sodium Chloride (Dextrose 5%-0.45% Ns) 1,000 mls @ 100 mls/hr IV CONT MIKI Last Infusion: 09/16/24 15:04 Dose: Infused Documented By: Admin: 09/16/24 13:10 Dose: 100 mls/hr Documented By: DEBRA Dextrose (D10w) 100 mls @ 999 mls/hr IV PRN PRN PRN Reason: Hypoglycemia Vancomycin HCl (Vancomycin) 1,250 mg in 250 mls @ 250 mls/hr IV NOW ONE Stop: 09/16/24 13:59 Last Infusion: 09/16/24 15:09 Dose: Infused Documented By: Admin: 09/16/24 13:36 Dose: 250 mls/hr Documented By: DEBRA Furosemide 60 mg/ Sodium (Chloride) 56 mls @ 112 mls/hr IV NOW ONE Stop: 09/16/24 15:21 Last Infusion: 09/16/24 16:00 Dose: Infused Documented By: Admin: 09/16/24 15:33 Dose: 112 mls/hr Documented By: FAB Sodium Chloride (Normal Saline 0.9%) 1,000 mls @ 1,000 mls/hr IV BOLUS ONE Stop: 09/16/24 08:19 Last Infusion: 09/16/24 08:15 Dose: Infused Documented By: Admin: 09/16/24 07:25 Dose: 1,000 mls/hr Documented By: DEBRA INSULIN DRIP PREMIX (Myxredlin Drip Premix) 100 unit in 100 mls @ 6 mls/hr IV TITRATE MIKI; Protocol Last Titration: 09/16/24 21:49 Dose: Infused Documented By: FAB Co-signed By: HERMINIO Titration: 09/16/24 21:24 Dose: 3 mls/hr, 3 mls/hr Documented By: FAB Co-signed By: DEBRA(2) Titration: 09/16/24 20:46 Dose: 4 mls/hr, 4 mls/hr Documented By: FAB Co-signed By: DEBRA(2) Titration: 09/16/24 20:32 Dose: 4 mls/hr, 4 mls/hr Documented By: FAB Co-signed By: DEBRA(2) Admin: 09/16/24 16:00 Dose: 6 mls/hr, 6 mls/hr Documented By: FAB Co-signed By: AMBIKA Succinylcholine Chloride 500 (mg/ Sodium Chloride) 500 mls @ 30 mls/hr IV CONT MIKI; Protocol Last Titration: 09/16/24 21:50 Dose: Infused Documented By: Admin: 09/16/24 20:43 Dose: 2 mg/min, 120 mls/hr Documented By: Titration: 09/16/24 20:43 Dose: Infused Documented By: Titration: 09/16/24 17:15 Dose: 2 mg/min, 120 mls/hr Documented By: Titration: 09/16/24 17:10 Dose: 1.5 mg/min, 90 mls/hr Documented By: Titration: 09/16/24 17:05 Dose: 1 mg/min, 60 mls/hr Documented By: Admin: 09/16/24 16:57 Dose: 0.5 mg/min, 30 mls/hr Documented By: DEBRA Dextrose (D5w) 200 mls @ 999 mls/hr IV PRN PRN PRN Reason: hypoglycemia NOREPINEPHRINE BITARTRATE/D5W (Levophed) 4 mg in 250 mls @ 34.019 mls/hr IV TITRATE MIKI; Protocol Last Titration: 09/16/24 21:50 Dose: Infused Documented By: Admin: 09/16/24 20:44 Dose: 0.44 mcg/kg/min, 149.685 mls/hr Documented By: Titration: 09/16/24 20:44 Dose: Infused Documented By: Admin: 09/16/24 20:39 Dose: 0.44 mcg/kg/min, 149.685 mls/hr Documented By: Titration: 09/16/24 20:39 Dose: Infused Documented By: Titration: 09/16/24 20:26 Dose: 0.44 mcg/kg/min, 149.685 mls/hr Documented By: Titration: 09/16/24 20:21 Dose: 0.42 mcg/kg/min, 142.881 mls/hr Documented By: Titration: 09/16/24 20:12 Dose: 0.4 mcg/kg/min, 136.077 mls/hr Documented By: Titration: 09/16/24 20:07 Dose: 0.38 mcg/kg/min, 129.273 mls/hr Documented By: Titration: 09/16/24 20:02 Dose: 0.36 mcg/kg/min, 122.469 mls/hr Documented By: Titration: 09/16/24 19:56 Dose: 0.34 mcg/kg/min, 115.665 mls/hr Documented By: Titration: 09/16/24 19:51 Dose: 0.32 mcg/kg/min, 108.862 mls/hr Documented By: Titration: 09/16/24 19:42 Dose: 0.3 mcg/kg/min, 101 mls/hr Documented By: Titration: 09/16/24 19:29 Dose: 0.28 mcg/kg/min, 95.254 mls/hr Documented By: Titration: 09/16/24 19:17 Dose: 0.26 mcg/kg/min, 88.45 mls/hr Documented By: Titration: 09/16/24 18:55 Dose: 0.24 mcg/kg/min, 81.646 mls/hr Documented By: Titration: 09/16/24 18:49 Dose: 0.22 mcg/kg/min, 74.842 mls/hr Documented By: Titration: 09/16/24 18:40 Dose: 0.2 mcg/kg/min, 68.039 mls/hr Documented By: Titration: 09/16/24 18:25 Dose: 0.18 mcg/kg/min, 61.235 mls/hr Documented By: Titration: 09/16/24 18:17 Dose: 0.16 mcg/kg/min, 54.431 mls/hr Documented By: Titration: 09/16/24 18:11 Dose: 0.14 mcg/kg/min, 47.627 mls/hr Documented By: Titration: 09/16/24 18:06 Dose: 0.12 mcg/kg/min, 40.5 mls/hr Documented By: Admin: 09/16/24 17:59 Dose: 0.1 mcg/kg/min, 33.8 mls/hr Documented By: DEBRA Insulin Glargine (Insulin Glargine 100 Unit/Ml 3ml Pen) 10 unit SUBCUT BID MIKI Last Admin: 09/16/24 13:24 Dose: 10 unit Documented By: DEBRA Co-signed By: DEBRA(2) Insulin Human Lispro (Insulin Lispro 100 Unit/Ml 3ml Vial) 0 unit SUBCUT Q6H MIKI; Protocol Last Admin: 09/16/24 13:00 Dose: Not Given Documented By: DEBRA Insulin Human Regular (Insulin Regular 100 Unit/Ml 3 Ml Vial) 10 unit IV NOW ONE Stop: 09/16/24 08:42 Last Admin: 09/16/24 08:58 Dose: 10 unit Documented By: EDBRA Co-signed By: LUDWIN Insulin Human Regular (Insulin Regular 100 Unit/Ml 3 Ml Vial) 15 unit IV NOW ONE Stop: 09/16/24 12:02 Last Admin: 09/16/24 12:14 Dose: 15 unit Documented By: DEBRA Co-signed By: LUDWIN Morphine Sulfate (Morphine 4 Mg/Ml Inj) 4 mg IV NOW ONE Stop: 09/16/24 06:16 Last Admin: 09/16/24 06:34 Dose: 4 mg Documented By: JUAN RAMON Propofol (Propofol 200 Mg/20 Ml Vial) 120 mg IV NOW ONE Stop: 09/16/24 10:16 Last Admin: 09/16/24 09:45 Dose: 100 mg Documented By: DEBRA Rocuronium [place] (Rocuronium 50 Mg/5 Ml Inj) 30 mg IV NOW ONE Stop: 09/16/24 10:16 Last Admin: 09/16/24 09:45 Dose: 30 mg Documented By: DEBRA Succinylcholine Chloride (Succinylcholine 200 Mg/10 Ml Vial) 100 mg IV NOW ONE Stop: 09/16/24 15:25 Last Admin: 09/16/24 15:32 Dose: 100 mg Documented By: FAB Vancomycin HCl (Vancomycin Per Pharmacy) 1 request MISC NOW PRN PRN Reason: Dyspnea Vital Signs Vital signs: Vital Signs - 8 hr 09/16/24 15:24 09/16/24 15:24 09/16/24 15:25 Temperature 101.3 F H 101.3 F H Pulse Rate 134 H 134 H Respiratory Rate 24 23 Blood Pressure 120/73 Pulse Oximetry 98 98 Oxygen Delivery Method 09/16/24 15:25 09/16/24 15:30 09/16/24 15:30 Temperature 101.5 F H Pulse Rate 137 H Respiratory Rate 22 Blood Pressure 120/71 113/58 L Pulse Oximetry 98 Oxygen Delivery Method 09/16/24 15:35 09/16/24 15:35 09/16/24 15:40 Temperature 101.5 F H 101.8 F H Pulse Rate 135 H 140 H Respiratory Rate 22 27 H Blood Pressure 114/57 L Pulse Oximetry 100 98 Oxygen Delivery Method 09/16/24 15:40 09/16/24 15:45 09/16/24 15:45 Temperature 102.0 F H Pulse Rate 140 H Respiratory Rate 27 H Blood Pressure 112/62 96/64 Pulse Oximetry 96 Oxygen Delivery Method 09/16/24 15:47 09/16/24 15:47 09/16/24 15:50 Temperature 102.0 F H 102.2 F H Pulse Rate 140 H 141 H Respiratory Rate 27 H 28 H Blood Pressure 101/69 Pulse Oximetry 97 97 Oxygen Delivery Method 09/16/24 15:50 09/16/24 15:55 09/16/24 15:55 Temperature 102.2 F H Pulse Rate 143 H Respiratory Rate 27 H Blood Pressure 108/67 108/69 Pulse Oximetry 98 Oxygen Delivery Method 09/16/24 16:00 09/16/24 16:00 09/16/24 16:05 Temperature 102.6 F H 102.6 F H Pulse Rate 143 H 143 H Respiratory Rate 27 H 27 H Blood Pressure 104/60 Pulse Oximetry 98 97 Oxygen Delivery Method 09/16/24 16:05 09/16/24 16:10 09/16/24 16:10 Temperature 102.7 F H Pulse Rate 145 H Respiratory Rate 27 H Blood Pressure 102/58 L 103/58 L Pulse Oximetry 98 Oxygen Delivery Method Mechanical Ventilation 09/16/24 16:15 09/16/24 16:15 09/16/24 16:20 Temperature 102.9 F H Pulse Rate 145 H Respiratory Rate 28 H Blood Pressure 99/52 L 112/55 L Pulse Oximetry 97 Oxygen Delivery Method Mechanical Ventilation 09/16/24 16:20 09/16/24 16:25 09/16/24 16:25 Temperature 103.1 F H 103.1 F H Pulse Rate 145 H 145 H Respiratory Rate 27 H 27 H Blood Pressure 100/59 L Pulse Oximetry 97 96 Oxygen Delivery Method Mechanical Ventilation 09/16/24 16:30 09/16/24 16:30 09/16/24 16:35 Temperature 103.3 F H Pulse Rate 145 H Respiratory Rate 27 H Blood Pressure 99/55 L 92/54 L Pulse Oximetry 96 Oxygen Delivery Method Mechanical Ventilation 09/16/24 16:35 09/16/24 16:40 09/16/24 16:40 Temperature 103.5 F H 103.6 F H Pulse Rate 149 H 149 H Respiratory Rate 33 H 27 H Blood Pressure 106/83 Pulse Oximetry 96 94 Oxygen Delivery Method 09/16/24 16:45 09/16/24 16:45 09/16/24 16:50 Temperature 103.6 F H 103.8 F H Pulse Rate 149 H 149 H Respiratory Rate 27 H 27 H Blood Pressure 96/54 L Pulse Oximetry 95 96 Oxygen Delivery Method 09/16/24 16:50 09/16/24 16:55 09/16/24 16:55 Temperature 103.8 F H Pulse Rate 149 H Respiratory Rate 27 H Blood Pressure 90/53 L 81/54 L Pulse Oximetry 95 Oxygen Delivery Method 09/16/24 17:00 09/16/24 17:00 09/16/24 17:05 Temperature 104.0 F H 104.2 F H Pulse Rate 146 H 146 H Respiratory Rate 27 H 25 H Blood Pressure 88/61 L Pulse Oximetry 97 97 Oxygen Delivery Method Mechanical Ventilation 09/16/24 17:05 09/16/24 17:10 09/16/24 17:10 Temperature 104.2 F H Pulse Rate 148 H Respiratory Rate 26 H Blood Pressure 90/52 L 93/55 L Pulse Oximetry 97 Oxygen Delivery Method Mechanical Ventilation 09/16/24 17:15 09/16/24 17:15 09/16/24 17:20 Temperature 104.2 F H 104.2 F H Pulse Rate 146 H 148 H Respiratory Rate 23 25 H Blood Pressure 99/55 L Pulse Oximetry 97 96 Oxygen Delivery Method Mechanical Ventilation 09/16/24 17:20 09/16/24 17:30 09/16/24 17:31 Temperature 104.4 F H 104.4 F H Pulse Rate 149 H 149 H Respiratory Rate 27 H 27 H Blood Pressure 81/57 L Pulse Oximetry 96 97 Oxygen Delivery Method Mechanical Ventilation 09/16/24 17:31 09/16/24 17:35 09/16/24 17:35 Temperature 104.4 F H Pulse Rate 146 H Respiratory Rate 27 H Blood Pressure 99/54 L 80/42 L Pulse Oximetry 93 Oxygen Delivery Method Mechanical Ventilation 09/16/24 17:40 09/16/24 17:40 09/16/24 17:51 Temperature 104.4 F H 104.4 F H Pulse Rate 146 H 146 H Respiratory Rate 27 H 27 H Blood Pressure 93/47 L Pulse Oximetry 92 92 Oxygen Delivery Method Mechanical Ventilation 09/16/24 17:51 09/16/24 17:55 09/16/24 17:55 Temperature 104.4 F H Pulse Rate 145 H Respiratory Rate 27 H Blood Pressure 76/41 L 76/41 L Pulse Oximetry 91 Oxygen Delivery Method 09/16/24 18:00 09/16/24 18:00 09/16/24 18:02 Temperature 104.4 F H 104.4 F H Pulse Rate 144 H 144 H Respiratory Rate 25 H 27 H Blood Pressure 62/44 L Pulse Oximetry 90 L 92 Oxygen Delivery Method Mechanical Ventilation 09/16/24 18:02 09/16/24 18:05 09/16/24 18:05 Temperature 104.4 F H Pulse Rate 144 H Respiratory Rate 26 H Blood Pressure 65/44 L 68/49 L Pulse Oximetry 92 Oxygen Delivery Method Mechanical Ventilation 09/16/24 18:08 09/16/24 18:08 09/16/24 18:10 Temperature 104.4 F H 104.4 F H Pulse Rate 144 H 144 H Respiratory Rate 27 H 24 Blood Pressure 69/45 L Pulse Oximetry 93 92 Oxygen Delivery Method Mechanical Ventilation 09/16/24 18:10 09/16/24 18:12 09/16/24 18:12 Temperature 104.2 F H Pulse Rate 144 H Respiratory Rate 30 H Blood Pressure 73/49 L 78/51 L Pulse Oximetry 92 Oxygen Delivery Method Mechanical Ventilation 09/16/24 18:15 09/16/24 18:15 09/16/24 18:18 Temperature 104.2 F H Pulse Rate 144 H Respiratory Rate 38 H Blood Pressure 80/51 L 77/47 L Pulse Oximetry 93 Oxygen Delivery Method 09/16/24 18:18 09/16/24 18:22 09/16/24 18:22 Temperature 104.2 F H 104.0 F H Pulse Rate 144 H 143 H Respiratory Rate 38 H 38 H Blood Pressure 77/48 L Pulse Oximetry 93 Oxygen Delivery Method Mechanical Ventilation 09/16/24 18:23 09/16/24 18:23 09/16/24 18:25 Temperature 104.0 F H 104.0 F H Pulse Rate 141 H 141 H Respiratory Rate 38 H 38 H Blood Pressure 78/52 L Pulse Oximetry 91 Oxygen Delivery Method 09/16/24 18:25 09/16/24 18:28 09/16/24 18:28 Temperature 104.0 F H Pulse Rate 141 H Respiratory Rate 36 H Blood Pressure 70/48 L 122/58 L Pulse Oximetry 93 Oxygen Delivery Method 09/16/24 18:30 09/16/24 18:30 09/16/24 18:35 Temperature 104.0 F H 103.8 F H Pulse Rate 141 H 141 H Respiratory Rate 35 H 36 H Blood Pressure 79/48 L Pulse Oximetry 93 93 Oxygen Delivery Method 09/16/24 18:35 09/16/24 18:40 09/16/24 18:40 Temperature 103.6 F H Pulse Rate 141 H Respiratory Rate 35 H Blood Pressure 84/52 L 82/48 L Pulse Oximetry 92 Oxygen Delivery Method 09/16/24 18:45 09/16/24 18:45 09/16/24 18:50 Temperature 103.6 F H Pulse Rate 141 H Respiratory Rate 35 H Blood Pressure 78/50 L 80/51 L Pulse Oximetry 92 Oxygen Delivery Method 09/16/24 18:50 09/16/24 18:55 09/16/24 18:55 Temperature 103.5 F H 103.5 F H Pulse Rate 141 H 140 H Respiratory Rate 35 H 35 H Blood Pressure 83/51 L Pulse Oximetry 91 92 Oxygen Delivery Method Mechanical Ventilation 09/16/24 19:00 09/16/24 19:00 09/16/24 19:05 Temperature 103.3 F H 103.3 F H Pulse Rate 138 H 138 H Respiratory Rate 35 H 35 H Blood Pressure 84/53 L Pulse Oximetry 91 91 Oxygen Delivery Method 09/16/24 19:05 09/16/24 19:10 09/16/24 19:10 Temperature 103.1 F H Pulse Rate 138 H Respiratory Rate 35 H Blood Pressure 80/52 L 76/51 L Pulse Oximetry 91 Oxygen Delivery Method 09/16/24 19:15 09/16/24 19:15 09/16/24 19:20 Temperature 103.1 F H 102.9 F H Pulse Rate 138 H 138 H Respiratory Rate 35 H 35 H Blood Pressure 78/51 L Pulse Oximetry 91 92 Oxygen Delivery Method Mechanical Ventilation 09/16/24 19:20 09/16/24 19:25 09/16/24 19:25 Temperature 102.9 F H Pulse Rate 138 H Respiratory Rate 35 H Blood Pressure 75/50 L 77/51 L Pulse Oximetry 95 Oxygen Delivery Method Mechanical Ventilation 09/16/24 19:30 09/16/24 19:30 09/16/24 19:35 Temperature 102.9 F H 102.7 F H Pulse Rate 138 H 137 H Respiratory Rate 35 H 35 H Blood Pressure 79/51 L Pulse Oximetry 95 96 Oxygen Delivery Method Mechanical Ventilation Mechanical Ventilation 09/16/24 19:35 09/16/24 19:40 09/16/24 19:40 Temperature 102.7 F H Pulse Rate 137 H Respiratory Rate 35 H Blood Pressure 82/51 L 82/53 L Pulse Oximetry 96 Oxygen Delivery Method Mechanical Ventilation 09/16/24 19:45 09/16/24 19:45 09/16/24 19:50 Temperature 102.7 F H Pulse Rate 137 H Respiratory Rate 35 H Blood Pressure 81/52 L 81/52 L Pulse Oximetry 97 Oxygen Delivery Method Mechanical Ventilation 09/16/24 19:50 09/16/24 19:55 09/16/24 19:55 Temperature 102.6 F H 102.6 F H Pulse Rate 136 H 137 H Respiratory Rate 35 H 35 H Blood Pressure 79/50 L Pulse Oximetry 96 96 Oxygen Delivery Method Mechanical Ventilation Mechanical Ventilation 09/16/24 20:00 09/16/24 20:00 09/16/24 20:05 Temperature 102.6 F H 102.6 F H Pulse Rate 137 H 136 H Respiratory Rate 35 H 35 H Blood Pressure 85/53 L Pulse Oximetry 96 97 Oxygen Delivery Method Mechanical Ventilation Mechanical Ventilation 09/16/24 20:05 09/16/24 20:10 09/16/24 20:10 Temperature 102.4 F H Pulse Rate 135 H Respiratory Rate 35 H Blood Pressure 82/52 L 81/51 L Pulse Oximetry 96 Oxygen Delivery Method Mechanical Ventilation 09/16/24 20:15 09/16/24 20:15 09/16/24 20:20 Temperature 102.4 F H 102.4 F H Pulse Rate 137 H 137 H Respiratory Rate 35 H 35 H Blood Pressure 85/54 L Pulse Oximetry 97 97 Oxygen Delivery Method Mechanical Ventilation Mechanical Ventilation 09/16/24 20:20 09/16/24 20:23 09/16/24 20:23 Temperature 102.4 F H Pulse Rate 137 H Respiratory Rate 35 H Blood Pressure 83/51 L 85/53 L Pulse Oximetry 97 Oxygen Delivery Method Mechanical Ventilation 09/16/24 20:25 09/16/24 20:25 09/16/24 20:30 Temperature 102.4 F H Pulse Rate 137 H Respiratory Rate 35 H Blood Pressure 82/55 L 86/52 L Pulse Oximetry 97 Oxygen Delivery Method Mechanical Ventilation 09/16/24 20:30 09/16/24 20:35 09/16/24 20:35 Temperature 102.4 F H 102.2 F H Pulse Rate 136 H 135 H Respiratory Rate 35 H 35 H Blood Pressure 86/52 L Pulse Oximetry 97 97 Oxygen Delivery Method Mechanical Ventilation Mechanical Ventilation 09/16/24 20:40 09/16/24 20:40 09/16/24 20:45 Temperature 102.2 F H 102.2 F H Pulse Rate 137 H 136 H Respiratory Rate 35 H 35 H Blood Pressure 89/53 L Pulse Oximetry 96 95 Oxygen Delivery Method Mechanical Ventilation Mechanical Ventilation 09/16/24 20:45 09/16/24 20:50 09/16/24 20:50 Temperature 102.2 F H Pulse Rate 137 H Respiratory Rate 35 H Blood Pressure 84/55 L 84/51 L Pulse Oximetry 93 Oxygen Delivery Method Mechanical Ventilation 09/16/24 20:55 09/16/24 20:55 09/16/24 21:00 Temperature 102.2 F H 102.2 F H Pulse Rate 137 H 135 H Respiratory Rate 35 H 35 H Blood Pressure 89/53 L Pulse Oximetry 92 91 Oxygen Delivery Method Mechanical Ventilation 09/16/24 21:00 09/16/24 21:05 09/16/24 21:05 Temperature 102.2 F H Pulse Rate 136 H Respiratory Rate 35 H Blood Pressure 86/54 L 87/55 L Pulse Oximetry 91 Oxygen Delivery Method 09/16/24 21:10 09/16/24 21:10 09/16/24 21:15 Temperature 102.2 F H 102.2 F H Pulse Rate 135 H 135 H Respiratory Rate 35 H 35 H Blood Pressure 88/53 L Pulse Oximetry 92 91 Oxygen Delivery Method 09/16/24 21:15 Temperature Pulse Rate Respiratory Rate Blood Pressure 88/52 L Pulse Oximetry Oxygen Delivery Method <Carl Pineda MD - Last Filed: 09/18/24 08:53> Orders Ordered: Discontinued Medications Albuterol (Albuterol 2.5 Mg/3 Ml Neb (Adult)) 5 mg INH NOW ONE Stop: 09/16/24 08:20 Last Admin: 09/16/24 08:21 Dose: 5 mg Documented By: NL Albuterol/Ipratropium (Albuterol/Ipratropium 3 Ml Ampul) 3 ml INH NOW ONE Stop: 09/16/24 05:21 Last Admin: 09/16/24 05:25 Dose: 3 ml Documented By: Hydromorphone HCl (Hydromorphone 1 Mg Inj) 1 mg IV NOW ONE Stop: 09/16/24 08:02 Last Admin: 09/16/24 08:30 Dose: 1 mg Documented By: DEBRA Ceftriaxone Sodium 2,000 mg/ (Sodium Chloride) 100 mls @ 200 mls/hr IV NOW ONE Stop: 09/16/24 07:47 Last Infusion: 09/16/24 08:55 Dose: Infused Documented By: Admin: 09/16/24 07:55 Dose: 200 mls/hr Documented By: DEBRA Doxycycline Hyclate 100 mg/ (Sodium Chloride) 100 mls @ 100 mls/hr IV NOW ONE Stop: 09/16/24 07:47 Last Infusion: 09/16/24 09:58 Dose: Infused Documented By: Admin: 09/16/24 08:55 Dose: 100 mls/hr Documented By: DEBRA Sodium Chloride (Normal Saline 0.9%) 1,000 mls @ 1,000 mls/hr IV BOLUS ONE Stop: 09/16/24 09:40 Last Infusion: 09/16/24 13:14 Dose: Infused Documented By: Admin: 09/16/24 09:04 Dose: 1,000 mls/hr Documented By: DEBRA Fentanyl 1,000 mcg/ Dextrose 250 mls @ 15.876 mls/hr IV TITRATE [facility]; Protocol Last Titration: 09/16/24 21:48 Dose: Infused Documented By: Admin: 09/16/24 20:42 Dose: 2 mcg/kg/hr, 45.359 mls/hr Documented By: Titration: 09/16/24 20:42 Dose: Infused Documented By: Admin: 09/16/24 17:10 Dose: 2 mcg/kg/hr, 45.359 mls/hr Documented By: Titration: 09/16/24 17:09 Dose: Infused Documented By: Titration: 09/16/24 14:57 Dose: 2 mcg/kg/hr, 45.359 mls/hr Documented By: Titration: 09/16/24 11:05 Dose: 1.5 mcg/kg/hr, 34.019 mls/hr Documented By: Titration: 09/16/24 10:51 Dose: 1 mcg/kg/hr, 22.68 mls/hr Documented By: Admin: 09/16/24 09:58 Dose: 0.7 mcg/kg/hr, 15.876 mls/hr Documented By: DEBRA Propofol (Diprivan) 1,000 mg in 100 mls @ 2.722 mls/hr IV TITRATE [facility]; Protocol Last Titration: 09/16/24 21:49 Dose: Infused Documented By: Admin: 09/16/24 20:41 Dose: 30 mcg/kg/min, 16.329 mls/hr Documented By: Titration: 09/16/24 20:41 Dose: Infused Documented By: Admin: 09/16/24 17:58 Dose: 30 mcg/kg/min, 16.329 mls/hr Documented By: Titration: 09/16/24 17:57 Dose: Infused Documented By: Titration: 09/16/24 14:58 Dose: 30 mcg/kg/min, 16.329 mls/hr Documented By: Titration: 09/16/24 12:08 Dose: 25 mcg/kg/min, 13.608 mls/hr Documented By: Titration: 09/16/24 11:52 Dose: 20 mcg/kg/min, 10.886 mls/hr Documented By: Titration: 09/16/24 11:51 Dose: 15 mcg/kg/min, 8.165 mls/hr Documented By: Titration: 09/16/24 10:50 Dose: 12.5 mcg/kg/min, 6.804 mls/hr Documented By: Titration: 09/16/24 10:34 Dose: 10 mcg/kg/min, 5.443 mls/hr Documented By: Admin: 09/16/24 09:59 Dose: 5 mcg/kg/min, 2.722 mls/hr Documented By: DEBRA Acetaminophen (Ofirmev) 1,000 mg in 100 mls @ 400 mls/hr IV Q6H PRN PRN Reason: Fever/Mild Pain (1-3) Last Infusion: 09/16/24 17:25 Dose: Infused Documented By: Admin: 09/16/24 16:55 Dose: 400 mls/hr Documented By: Infusion: 09/16/24 11:40 Dose: Infused Documented By: Admin: 09/16/24 10:50 Dose: 400 mls/hr Documented By: DEBRA Sodium Chloride (Normal Saline 0.9%) 1,000 mls @ 1,000 mls/hr IV BOLUS ONE Stop: 09/16/24 11:50 Last Infusion: 09/16/24 13:14 Dose: Infused Documented By: Admin: 09/16/24 11:36 Dose: 1,000 mls/hr Documented By: DEBRA INSULIN DRIP PREMIX (Myxredlin Drip Premix) 100 unit in 100 mls @ 1 mls/hr IV CONT [facility]; Protocol Last Admin: 09/16/24 13:42 Dose: Not Given Documented By: LUDWIN Sodium Chloride (Normal Saline 0.9%) 1,000 mls @ 1,000 mls/hr IV BOLUS ONE Stop: 09/16/24 13:05 Last Admin: 09/16/24 13:42 Dose: Not Given Documented By: LUDWIN Dextrose/Sodium Chloride (Dextrose 5%-0.45% Ns) 1,000 mls @ 100 mls/hr IV CONT [facility] Last Infusion: 09/16/24 15:04 Dose: Infused Documented By: Admin: 09/16/24 13:10 Dose: 100 mls/hr Documented By: DEBRA Dextrose (D10w) 100 mls @ 999 mls/hr IV PRN PRN PRN Reason: Hypoglycemia Vancomycin HCl (Vancomycin) 1,250 mg in 250 mls @ 250 mls/hr IV NOW ONE Stop: 09/16/24 13:59 Last Infusion: 09/16/24 15:09 Dose: Infused Documented By: Admin: 09/16/24 13:36 Dose: 250 mls/hr Documented By: DEBRA Furosemide 60 mg/ Sodium (Chloride) 56 mls @ 112 mls/hr IV NOW ONE Stop: 09/16/24 15:21 Last Infusion: 09/16/24 16:00 Dose: Infused Documented By: Admin: 09/16/24 15:33 Dose: 112 mls/hr Documented By: FAB Sodium Chloride (Normal Saline 0.9%) 1,000 mls @ 1,000 mls/hr IV BOLUS ONE Stop: 09/16/24 08:19 Last Infusion: 09/16/24 08:15 Dose: Infused Documented By: Admin: 09/16/24 07:25 Dose: 1,000 mls/hr Documented By: DEBRA INSULIN DRIP PREMIX (Myxredlin Drip Premix) 100 unit in 100 mls @ 6 mls/hr IV TITRATE [facility]; Protocol Last Titration: 09/16/24 21:49 Dose: Infused Documented By: FAB Co-signed By: HERMINIO Titration: 09/16/24 21:24 Dose: 3 mls/hr, 3 mls/hr Documented By: FAB Co-signed By: DEBRA(2) Titration: 09/16/24 20:46 Dose: 4 mls/hr, 4 mls/hr Documented By: FAB Co-signed By: DEBRA(2) Titration: 09/16/24 20:32 Dose: 4 mls/hr, 4 mls/hr Documented By: FAB Co-signed By: DEBRA(2) Admin: 09/16/24 16:00 Dose: 6 mls/hr, 6 mls/hr Documented By: FAB Co-signed By: AMBIKA Succinylcholine Chloride 500 (mg/ Sodium Chloride) 500 mls @ 30 mls/hr IV CONT [facility]; Protocol Last Titration: 09/16/24 21:50 Dose: Infused Documented By: Admin: 09/16/24 20:43 Dose: 2 mg/min, 120 mls/hr Documented By: Titration: 09/16/24 20:43 Dose: Infused Documented By: Titration: 09/16/24 17:15 Dose: 2 mg/min, 120 mls/hr Documented By: Titration: 09/16/24 17:10 Dose: 1.5 mg/min, 90 mls/hr Documented By: Titration: 09/16/24 17:05 Dose: 1 mg/min, 60 mls/hr Documented By: Admin: 09/16/24 16:57 Dose: 0.5 mg/min, 30 mls/hr Documented By: DEBRA Dextrose (D5w) 200 mls @ 999 mls/hr IV PRN PRN PRN Reason: hypoglycemia NOREPINEPHRINE BITARTRATE/D5W (Levophed) 4 mg in 250 mls @ 34.019 mls/hr IV TITRATE [facility]; Protocol Last Titration: 09/16/24 21:50 Dose: Infused Documented By: Admin: 09/16/24 20:44 Dose: 0.44 mcg/kg/min, 149.685 mls/hr Documented By: Titration: 09/16/24 20:44 Dose: Infused Documented By: Admin: 09/16/24 20:39 Dose: 0.44 mcg/kg/min, 149.685 mls/hr Documented By: Titration: 09/16/24 20:39 Dose: Infused Documented By: Titration: 09/16/24 20:26 Dose: 0.44 mcg/kg/min, 149.685 mls/hr Documented By: Titration: 09/16/24 20:21 Dose: 0.42 mcg/kg/min, 142.881 mls/hr Documented By: Titration: 09/16/24 20:12 Dose: 0.4 mcg/kg/min, 136.077 mls/hr Documented By: Titration: 09/16/24 20:07 Dose: 0.38 mcg/kg/min, 129.273 mls/hr Documented By: Titration: 09/16/24 20:02 Dose: 0.36 mcg/kg/min, 122.469 mls/hr Documented By: Titration: 09/16/24 19:56 Dose: 0.34 mcg/kg/min, 115.665 mls/hr Documented By: Titration: 09/16/24 19:51 Dose: 0.32 mcg/kg/min, 108.862 mls/hr Documented By: Titration: 09/16/24 19:42 Dose: 0.3 mcg/kg/min, 101 mls/hr Documented By: Titration: 09/16/24 19:29 Dose: 0.28 mcg/kg/min, 95.254 mls/hr Documented By: Titration: 09/16/24 19:17 Dose: 0.26 mcg/kg/min, 88.45 mls/hr Documented By: Titration: 09/16/24 18:55 Dose: 0.24 mcg/kg/min, 81.646 mls/hr Documented By: Titration: 09/16/24 18:49 Dose: 0.22 mcg/kg/min, 74.842 mls/hr Documented By: Titration: 09/16/24 18:40 Dose: 0.2 mcg/kg/min, 68.039 mls/hr Documented By: Titration: 09/16/24 18:25 Dose: 0.18 mcg/kg/min, 61.235 mls/hr Documented By: Titration: 09/16/24 18:17 Dose: 0.16 mcg/kg/min, 54.431 mls/hr Documented By: Titration: 09/16/24 18:11 Dose: 0.14 mcg/kg/min, 47.627 mls/hr Documented By: Titration: 09/16/24 18:06 Dose: 0.12 mcg/kg/min, 40.5 mls/hr Documented By: Admin: 09/16/24 17:59 Dose: 0.1 mcg/kg/min, 33.8 mls/hr Documented By: DEBRA Insulin Glargine (Insulin Glargine 100 Unit/Ml 3ml Pen) 10 unit SUBCUT BID [facility] Last Admin: 09/16/24 13:24 Dose: 10 unit Documented By: DEBRA Co-signed By: DEBRA(2) Insulin Human Lispro (Insulin Lispro 100 Unit/Ml 3ml Vial) 0 unit SUBCUT Q6H [facility]; Protocol Last Admin: 09/16/24 13:00 Dose: Not Given Documented By: DEBRA Insulin Human Regular (Insulin Regular 100 Unit/Ml 3 Ml Vial) 10 unit IV NOW ONE Stop: 09/16/24 08:42 Last Admin: 09/16/24 08:58 Dose: 10 unit Documented By: DEBRA Co-signed By: LUDWIN Insulin Human Regular (Insulin Regular 100 Unit/Ml 3 Ml Vial) 15 unit IV NOW ONE Stop: 09/16/24 12:02 Last Admin: 09/16/24 12:14 Dose: 15 unit Documented By: DEBRA Co-signed By: LUDWIN Morphine Sulfate (Morphine 4 Mg/Ml Inj) 4 mg IV NOW ONE Stop: 09/16/24 06:16 Last Admin: 09/16/24 06:34 Dose: 4 mg Documented By: JUAN RAMON Propofol (Propofol 200 Mg/20 Ml Vial) 120 mg IV NOW ONE Stop: 09/16/24 10:16 Last Admin: 09/16/24 09:45 Dose: 100 mg Documented By: DEBRA Rocuronium [place] (Rocuronium 50 Mg/5 Ml Inj) 30 mg IV NOW ONE Stop: 09/16/24 10:16 Last Admin: 09/16/24 09:45 Dose: 30 mg Documented By: DEBRA Succinylcholine Chloride (Succinylcholine 200 Mg/10 Ml Vial) 100 mg IV NOW ONE Stop: 09/16/24 15:25 Last Admin: 09/16/24 15:32 Dose: 100 mg Documented By: FAB Vancomycin HCl (Vancomycin Per Pharmacy) 1 request MISC NOW PRN PRN Reason: Dyspnea Vital Signs Vital signs: Vital Signs - 8 hr 09/16/24 15:24 09/16/24 15:24 09/16/24 15:25 Temperature 101.3 F H 101.3 F H Pulse Rate 134 H 134 H Respiratory Rate 24 23 Blood Pressure 120/73 Pulse Oximetry 98 98 Oxygen Delivery Method 09/16/24 15:25 09/16/24 15:30 09/16/24 15:30 Temperature 101.5 F H Pulse Rate 137 H Respiratory Rate 22 Blood Pressure 120/71 113/58 L Pulse Oximetry 98 Oxygen Delivery Method 09/16/24 15:35 09/16/24 15:35 09/16/24 15:40 Temperature 101.5 F H 101.8 F H Pulse Rate 135 H 140 H Respiratory Rate 22 27 H Blood Pressure 114/57 L Pulse Oximetry 100 98 Oxygen Delivery Method 09/16/24 15:40 09/16/24 15:45 09/16/24 15:45 Temperature 102.0 F H Pulse Rate 140 H Respiratory Rate 27 H Blood Pressure 112/62 96/64 Pulse Oximetry 96 Oxygen Delivery Method 09/16/24 15:47 09/16/24 15:47 09/16/24 15:50 Temperature 102.0 F H 102.2 F H Pulse Rate 140 H 141 H Respiratory Rate 27 H 28 H Blood Pressure 101/69 Pulse Oximetry 97 97 Oxygen Delivery Method 09/16/24 15:50 09/16/24 15:55 09/16/24 15:55 Temperature 102.2 F H Pulse Rate 143 H Respiratory Rate 27 H Blood Pressure 108/67 108/69 Pulse Oximetry 98 Oxygen Delivery Method 09/16/24 16:00 09/16/24 16:00 09/16/24 16:05 Temperature 102.6 F H 102.6 F H Pulse Rate 143 H 143 H Respiratory Rate 27 H 27 H Blood Pressure 104/60 Pulse Oximetry 98 97 Oxygen Delivery Method 09/16/24 16:05 09/16/24 16:10 09/16/24 16:10 Temperature 102.7 F H Pulse Rate 145 H Respiratory Rate 27 H Blood Pressure 102/58 L 103/58 L Pulse Oximetry 98 Oxygen Delivery Method Mechanical Ventilation 09/16/24 16:15 09/16/24 16:15 09/16/24 16:20 Temperature 102.9 F H Pulse Rate 145 H Respiratory Rate 28 H Blood Pressure 99/52 L 112/55 L Pulse Oximetry 97 Oxygen Delivery Method Mechanical Ventilation 09/16/24 16:20 09/16/24 16:25 09/16/24 16:25 Temperature 103.1 F H 103.1 F H Pulse Rate 145 H 145 H Respiratory Rate 27 H 27 H Blood Pressure 100/59 L Pulse Oximetry 97 96 Oxygen Delivery Method Mechanical Ventilation 09/16/24 16:30 09/16/24 16:30 09/16/24 16:35 Temperature 103.3 F H Pulse Rate 145 H Respiratory Rate 27 H Blood Pressure 99/55 L 92/54 L Pulse Oximetry 96 Oxygen Delivery Method Mechanical Ventilation 09/16/24 16:35 09/16/24 16:40 09/16/24 16:40 Temperature 103.5 F H 103.6 F H Pulse Rate 149 H 149 H Respiratory Rate 33 H 27 H Blood Pressure 106/83 Pulse Oximetry 96 94 Oxygen Delivery Method 09/16/24 16:45 09/16/24 16:45 09/16/24 16:50 Temperature 103.6 F H 103.8 F H Pulse Rate 149 H 149 H Respiratory Rate 27 H 27 H Blood Pressure 96/54 L Pulse Oximetry 95 96 Oxygen Delivery Method 09/16/24 16:50 09/16/24 16:55 09/16/24 16:55 Temperature 103.8 F H Pulse Rate 149 H Respiratory Rate 27 H Blood Pressure 90/53 L 81/54 L Pulse Oximetry 95 Oxygen Delivery Method 09/16/24 17:00 09/16/24 17:00 09/16/24 17:05 Temperature 104.0 F H 104.2 F H Pulse Rate 146 H 146 H Respiratory Rate 27 H 25 H Blood Pressure 88/61 L Pulse Oximetry 97 97 Oxygen Delivery Method Mechanical Ventilation 09/16/24 17:05 09/16/24 17:10 09/16/24 17:10 Temperature 104.2 F H Pulse Rate 148 H Respiratory Rate 26 H Blood Pressure 90/52 L 93/55 L Pulse Oximetry 97 Oxygen Delivery Method Mechanical Ventilation 09/16/24 17:15 09/16/24 17:15 09/16/24 17:20 Temperature 104.2 F H 104.2 F H Pulse Rate 146 H 148 H Respiratory Rate 23 25 H Blood Pressure 99/55 L Pulse Oximetry 97 96 Oxygen Delivery Method Mechanical Ventilation 09/16/24 17:20 09/16/24 17:30 09/16/24 17:31 Temperature 104.4 F H 104.4 F H Pulse Rate 149 H 149 H Respiratory Rate 27 H 27 H Blood Pressure 81/57 L Pulse Oximetry 96 97 Oxygen Delivery Method Mechanical Ventilation 09/16/24 17:31 09/16/24 17:35 09/16/24 17:35 Temperature 104.4 F H Pulse Rate 146 H Respiratory Rate 27 H Blood Pressure 99/54 L 80/42 L Pulse Oximetry 93 Oxygen Delivery Method Mechanical Ventilation 09/16/24 17:40 09/16/24 17:40 09/16/24 17:51 Temperature 104.4 F H 104.4 F H Pulse Rate 146 H 146 H Respiratory Rate 27 H 27 H Blood Pressure 93/47 L Pulse Oximetry 92 92 Oxygen Delivery Method Mechanical Ventilation 09/16/24 17:51 09/16/24 17:55 09/16/24 17:55 Temperature 104.4 F H Pulse Rate 145 H Respiratory Rate 27 H Blood Pressure 76/41 L 76/41 L Pulse Oximetry 91 Oxygen Delivery Method 09/16/24 18:00 09/16/24 18:00 09/16/24 18:02 Temperature 104.4 F H 104.4 F H Pulse Rate 144 H 144 H Respiratory Rate 25 H 27 H Blood Pressure 62/44 L Pulse Oximetry 90 L 92 Oxygen Delivery Method Mechanical Ventilation 09/16/24 18:02 09/16/24 18:05 09/16/24 18:05 Temperature 104.4 F H Pulse Rate 144 H Respiratory Rate 26 H Blood Pressure 65/44 L 68/49 L Pulse Oximetry 92 Oxygen Delivery Method Mechanical Ventilation 09/16/24 18:08 09/16/24 18:08 09/16/24 18:10 Temperature 104.4 F H 104.4 F H Pulse Rate 144 H 144 H Respiratory Rate 27 H 24 Blood Pressure 69/45 L Pulse Oximetry 93 92 Oxygen Delivery Method Mechanical Ventilation 09/16/24 18:10 09/16/24 18:12 09/16/24 18:12 Temperature 104.2 F H Pulse Rate 144 H Respiratory Rate 30 H Blood Pressure 73/49 L 78/51 L Pulse Oximetry 92 Oxygen Delivery Method Mechanical Ventilation 09/16/24 18:15 09/16/24 18:15 09/16/24 18:18 Temperature 104.2 F H Pulse Rate 144 H Respiratory Rate 38 H Blood Pressure 80/51 L 77/47 L Pulse Oximetry 93 Oxygen Delivery Method 09/16/24 18:18 09/16/24 18:22 09/16/24 18:22 Temperature 104.2 F H 104.0 F H Pulse Rate 144 H 143 H Respiratory Rate 38 H 38 H Blood Pressure 77/48 L Pulse Oximetry 93 Oxygen Delivery Method Mechanical Ventilation 09/16/24 18:23 09/16/24 18:23 09/16/24 18:25 Temperature 104.0 F H 104.0 F H Pulse Rate 141 H 141 H Respiratory Rate 38 H 38 H Blood Pressure 78/52 L Pulse Oximetry 91 Oxygen Delivery Method 09/16/24 18:25 09/16/24 18:28 09/16/24 18:28 Temperature 104.0 F H Pulse Rate 141 H Respiratory Rate 36 H Blood Pressure 70/48 L 122/58 L Pulse Oximetry 93 Oxygen Delivery Method 09/16/24 18:30 09/16/24 18:30 09/16/24 18:35 Temperature 104.0 F H 103.8 F H Pulse Rate 141 H 141 H Respiratory Rate 35 H 36 H Blood Pressure 79/48 L Pulse Oximetry 93 93 Oxygen Delivery Method 09/16/24 18:35 09/16/24 18:40 09/16/24 18:40 Temperature 103.6 F H Pulse Rate 141 H Respiratory Rate 35 H Blood Pressure 84/52 L 82/48 L Pulse Oximetry 92 Oxygen Delivery Method 09/16/24 18:45 09/16/24 18:45 09/16/24 18:50 Temperature 103.6 F H Pulse Rate 141 H Respiratory Rate 35 H Blood Pressure 78/50 L 80/51 L Pulse Oximetry 92 Oxygen Delivery Method 09/16/24 18:50 09/16/24 18:55 09/16/24 18:55 Temperature 103.5 F H 103.5 F H Pulse Rate 141 H 140 H Respiratory Rate 35 H 35 H Blood Pressure 83/51 L Pulse Oximetry 91 92 Oxygen Delivery Method Mechanical Ventilation 09/16/24 19:00 09/16/24 19:00 09/16/24 19:05 Temperature 103.3 F H 103.3 F H Pulse Rate 138 H 138 H Respiratory Rate 35 H 35 H Blood Pressure 84/53 L Pulse Oximetry 91 91 Oxygen Delivery Method 09/16/24 19:05 09/16/24 19:10 09/16/24 19:10 Temperature 103.1 F H Pulse Rate 138 H Respiratory Rate 35 H Blood Pressure 80/52 L 76/51 L Pulse Oximetry 91 Oxygen Delivery Method 09/16/24 19:15 09/16/24 19:15 09/16/24 19:20 Temperature 103.1 F H 102.9 F H Pulse Rate 138 H 138 H Respiratory Rate 35 H 35 H Blood Pressure 78/51 L Pulse Oximetry 91 92 Oxygen Delivery Method Mechanical Ventilation 09/16/24 19:20 09/16/24 19:25 09/16/24 19:25 Temperature 102.9 F H Pulse Rate 138 H Respiratory Rate 35 H Blood Pressure 75/50 L 77/51 L Pulse Oximetry 95 Oxygen Delivery Method Mechanical Ventilation 09/16/24 19:30 09/16/24 19:30 09/16/24 19:35 Temperature 102.9 F H 102.7 F H Pulse Rate 138 H 137 H Respiratory Rate 35 H 35 H Blood Pressure 79/51 L Pulse Oximetry 95 96 Oxygen Delivery Method Mechanical Ventilation Mechanical Ventilation 09/16/24 19:35 09/16/24 19:40 09/16/24 19:40 Temperature 102.7 F H Pulse Rate 137 H Respiratory Rate 35 H Blood Pressure 82/51 L 82/53 L Pulse Oximetry 96 Oxygen Delivery Method Mechanical Ventilation 09/16/24 19:45 09/16/24 19:45 09/16/24 19:50 Temperature 102.7 F H Pulse Rate 137 H Respiratory Rate 35 H Blood Pressure 81/52 L 81/52 L Pulse Oximetry 97 Oxygen Delivery Method Mechanical Ventilation 09/16/24 19:50 09/16/24 19:55 09/16/24 19:55 Temperature 102.6 F H 102.6 F H Pulse Rate 136 H 137 H Respiratory Rate 35 H 35 H Blood Pressure 79/50 L Pulse Oximetry 96 96 Oxygen Delivery Method Mechanical Ventilation Mechanical Ventilation 09/16/24 20:00 09/16/24 20:00 09/16/24 20:05 Temperature 102.6 F H 102.6 F H Pulse Rate 137 H 136 H Respiratory Rate 35 H 35 H Blood Pressure 85/53 L Pulse Oximetry 96 97 Oxygen Delivery Method Mechanical Ventilation Mechanical Ventilation 09/16/24 20:05 09/16/24 20:10 09/16/24 20:10 Temperature 102.4 F H Pulse Rate 135 H Respiratory Rate 35 H Blood Pressure 82/52 L 81/51 L Pulse Oximetry 96 Oxygen Delivery Method Mechanical Ventilation 09/16/24 20:15 09/16/24 20:15 09/16/24 20:20 Temperature 102.4 F H 102.4 F H Pulse Rate 137 H 137 H Respiratory Rate 35 H 35 H Blood Pressure 85/54 L Pulse Oximetry 97 97 Oxygen Delivery Method Mechanical Ventilation Mechanical Ventilation 09/16/24 20:20 09/16/24 20:23 09/16/24 20:23 Temperature 102.4 F H Pulse Rate 137 H Respiratory Rate 35 H Blood Pressure 83/51 L 85/53 L Pulse Oximetry 97 Oxygen Delivery Method Mechanical Ventilation 09/16/24 20:25 09/16/24 20:25 09/16/24 20:30 Temperature 102.4 F H Pulse Rate 137 H Respiratory Rate 35 H Blood Pressure 82/55 L 86/52 L Pulse Oximetry 97 Oxygen Delivery Method Mechanical Ventilation 09/16/24 20:30 09/16/24 20:35 09/16/24 20:35 Temperature 102.4 F H 102.2 F H Pulse Rate 136 H 135 H Respiratory Rate 35 H 35 H Blood Pressure 86/52 L Pulse Oximetry 97 97 Oxygen Delivery Method Mechanical Ventilation Mechanical Ventilation 09/16/24 20:40 09/16/24 20:40 09/16/24 20:45 Temperature 102.2 F H 102.2 F H Pulse Rate 137 H 136 H Respiratory Rate 35 H 35 H Blood Pressure 89/53 L Pulse Oximetry 96 95 Oxygen Delivery Method Mechanical Ventilation Mechanical Ventilation 09/16/24 20:45 09/16/24 20:50 09/16/24 20:50 Temperature 102.2 F H Pulse Rate 137 H Respiratory Rate 35 H Blood Pressure 84/55 L 84/51 L Pulse Oximetry 93 Oxygen Delivery Method Mechanical Ventilation 09/16/24 20:55 09/16/24 20:55 09/16/24 21:00 Temperature 102.2 F H 102.2 F H Pulse Rate 137 H 135 H Respiratory Rate 35 H 35 H Blood Pressure 89/53 L Pulse Oximetry 92 91 Oxygen Delivery Method Mechanical Ventilation 09/16/24 21:00 09/16/24 21:05 09/16/24 21:05 Temperature 102.2 F H Pulse Rate 136 H Respiratory Rate 35 H Blood Pressure 86/54 L 87/55 L Pulse Oximetry 91 Oxygen Delivery Method 09/16/24 21:10 09/16/24 21:10 09/16/24 21:15 Temperature 102.2 F H 102.2 F H Pulse Rate 135 H 135 H Respiratory Rate 35 H 35 H Blood Pressure 88/53 L Pulse Oximetry 92 91 Oxygen Delivery Method 09/16/24 21:15 Temperature Pulse Rate Respiratory Rate Blood Pressure 88/52 L Pulse Oximetry Oxygen Delivery Method MDM - SOB/Dyspnea <Ada Phelps MD - Last Filed: 09/16/24 23:24> Lab Data 09/16/24 06:30 09/16/24 20:15 Labs: Lab Results 09/16/24 09/16/24 09/16/24 Range/Units 06:30 07:00 07:51 WBC 15.8 H (4.5-11.0) X10^3/uL RBC 5.37 H (4.0-5.2) X10^6/uL Hgb 15.4 (12.0-16.0) g/dL Hct 45.9 (36-46) % MCV 85.6 (80-100) fL MCH 28.6 (26-34) PG MCHC 33.4 (30-36) % RDW 13.4 (11.6-14.8) % Plt Count 198 (150-400) X10^3/uL Neut % (Auto) 82.1 H (50-75) % Lymph % (Auto) 11.1 L (25-40) % Cloud % (Auto) 6.6 (3-14) % Eos % (Auto) 0.0 L (2-4) % Baso % (Auto) 0.2 (0-2) % Neut # (Auto) 65727 H (7742-9640) /uL Lymph # (Auto) 1800 (3867-6665) /uL Cloud # (Auto) 1000 H (0-900) /uL Eos # (Auto) 0 (0-450) /uL Baso # (Auto) 0 (0-100) /uL PT 13.7 H (9.4-12.5) SECONDS INR 1.2 (0.9-1.3) ABG Sample Site ABG pH (7.35-7.45) ABG pCO2 (35-45) mmHg ABG pO2 (80-100) mmHg ABG HCO3 (23-27) mmol/L ABG Total CO2 (23-27) mmol/L ABG O2 Saturation (95-100) % ABG Base Excess (-2-3) mmol/L Edward Test VBG pH (7.33-7.43) VBG pCO2 (45-50) mmHg VBG pO2 (35-45) mmHg VBG HCO3 (24-28) mmol/L VBG Total CO2 (24-29) mmol/L VBG O2 Saturation (70-75) % VBG Base Excess (0-4) mmol/L Respiration Rate O2 Delivery Device Mode of Support FiO2 % % PEEP or CPAP Sodium 128 L (137-145) mmol/L Potassium 3.8 (3.4-5.1) mmol/L Chloride 98 (98-107) mmol/L Carbon Dioxide 15 L (22-32) mmol/L BUN 6 L (7-17) mg/dL Creatinine 0.67 (0.52-1.04) mg/dL Estimated GFR > 60 (>60) mL/min BUN/Creatinine Ratio 9.0 (6-22) Glucose 502 H* (70-100) mg/dL Hemoglobin A1c 10.0 H (4.0-6.0) % Lactate 3.4 H (0.7-2.1) mmol/L Calcium 8.7 (8.4-10.2) mg/dL Total Bilirubin 0.7 (0.2-1.3) mg/dL AST 26 (14-36) IU/L ALT 25 (<35) IU/L Alkaline Phosphatase 87 (38-126) U/L Total Creatine Kinase 63 (30-135) U/L Troponin I < 0.012 (0.01-0.034) ng/mL NT-Pro-B Natriuret Pep 142 H (<125) pg/mL Total Protein 7.0 (6.3-8.2) g/dL Albumin 4.0 (3.5-5.0) g/dL Globulin 3.0 (1.7-4.1) g/dL Albumin/Globulin Ratio 1.3 (1.0-2.8) Procalcitonin 2.00 H (<0.5) ng/mL Ketones 1.17 H (<0.27) mmol/L Chlamy pneumoniae PCR Not detected (Not Detect) Adenovirus (PCR) Not detected (Not Detect) B. pertussis DNA (PCR) Not detected (Not Detect) B.parapertussis DNA PCR Not detected (Not Detecte) Coronavirus OC43 (PCR) Not detected (Not Detect) Coronavirus HKU1 (PCR) Not detected (Not Detect) Coronavirus 229E (PCR) Not detected (Not Detect) SARS-CoV-2 (PCR) Not detected (Not Detecte) Coronavirus NL63 (PCR) Not detected (Not Detect) Human Metapneumovir PCR Not detected (Not Detect) Influ A (H1N1 Seas) PCR Detected H (Not Detect) Influenza Type B (PCR) Not detected (Not Detect) M. pneumoniae (PCR) Not detected (Not Detect) Parainfluenza 1 (PCR) Not detected (Not Detect) Parainfluenza 2 (PCR) Not detected (Not Detect) Parainfluenza 3 (PCR) Not detected (Not Detect) Parainfluenza 4 (PCR) Not detected (Not Detect) RSV (PCR) Not detected (Not Detect) Entero/Rhino (PCR) Not detected (Not Detect) 09/16/24 09/16/24 09/16/24 Range/Units 08:44 10:02 10:59 WBC (4.5-11.0) X10^3/uL RBC (4.0-5.2) X10^6/uL Hgb (12.0-16.0) g/dL Hct (36-46) % MCV (80-100) fL MCH (26-34) PG MCHC (30-36) % RDW (11.6-14.8) % Plt Count (150-400) X10^3/uL Neut % (Auto) (50-75) % Lymph % (Auto) (25-40) % Cloud % (Auto) (3-14) % Eos % (Auto) (2-4) % Baso % (Auto) (0-2) % Neut # (Auto) (2418-5981) /uL Lymph # (Auto) (3208-1109) /uL Cloud # (Auto) (0-900) /uL Eos # (Auto) (0-450) /uL Baso # (Auto) (0-100) /uL PT (9.4-12.5) SECONDS INR (0.9-1.3) ABG Sample Site ABG pH (7.35-7.45) ABG pCO2 (35-45) mmHg ABG pO2 (80-100) mmHg ABG HCO3 (23-27) mmol/L ABG Total CO2 (23-27) mmol/L ABG O2 Saturation (95-100) % ABG Base Excess (-2-3) mmol/L Edward Test VBG pH 7.31 L (7.33-7.43) VBG pCO2 32.8 L (45-50) mmHg VBG pO2 63 H (35-45) mmHg VBG HCO3 16 L (24-28) mmol/L VBG Total CO2 16 L (24-29) mmol/L VBG O2 Saturation 90 H (70-75) % VBG Base Excess -8.7 L (0-4) mmol/L Respiration Rate O2 Delivery Device Mode of Support FiO2 % % PEEP or CPAP Sodium 134 L (137-145) mmol/L Potassium 3.5 (3.4-5.1) mmol/L Chloride 105 (98-107) mmol/L Carbon Dioxide 17 L (22-32) mmol/L BUN 8 (7-17) mg/dL Creatinine 1.06 H (0.52-1.04) mg/dL Estimated GFR > 60 (>60) mL/min BUN/Creatinine Ratio 7.5 (6-22) Glucose 510 H* (70-100) mg/dL Hemoglobin A1c (4.0-6.0) % Lactate 3.7 H (0.7-2.1) mmol/L Calcium 6.6 L (8.4-10.2) mg/dL Total Bilirubin 0.3 (0.2-1.3) mg/dL AST 23 (14-36) IU/L ALT 22 (<35) IU/L Alkaline Phosphatase 64 (38-126) U/L Total Creatine Kinase (30-135) U/L Troponin I (0.01-0.034) ng/mL NT-Pro-B Natriuret Pep (<125) pg/mL Total Protein 5.7 L (6.3-8.2) g/dL Albumin 3.0 L (3.5-5.0) g/dL Globulin 2.7 (1.7-4.1) g/dL Albumin/Globulin Ratio 1.1 (1.0-2.8) Procalcitonin (<0.5) ng/mL Ketones (<0.27) mmol/L Chlamy pneumoniae PCR (Not Detect) Adenovirus (PCR) (Not Detect) B. pertussis DNA (PCR) (Not Detect) B.parapertussis DNA PCR (Not Detecte) Coronavirus OC43 (PCR) (Not Detect) Coronavirus HKU1 (PCR) (Not Detect) Coronavirus 229E (PCR) (Not Detect) SARS-CoV-2 (PCR) (Not Detecte) Coronavirus NL63 (PCR) (Not Detect) Human Metapneumovir PCR (Not Detect) Influ A (H1N1 [place]) PCR (Not Detect) Influenza Type B (PCR) (Not Detect) M. pneumoniae (PCR) (Not Detect) Parainfluenza 1 (PCR) (Not Detect) Parainfluenza 2 (PCR) (Not Detect) Parainfluenza 3 (PCR) (Not Detect) Parainfluenza 4 (PCR) (Not Detect) RSV (PCR) (Not Detect) Entero/Rhino (PCR) (Not Detect) 09/16/24 09/16/24 09/16/24 Range/Units 11:55 14:11 15:05 WBC (4.5-11.0) X10^3/uL RBC (4.0-5.2) X10^6/uL Hgb (12.0-16.0) g/dL Hct (36-46) % MCV (80-100) fL MCH (26-34) PG MCHC (30-36) % RDW (11.6-14.8) % Plt Count (150-400) X10^3/uL Neut % (Auto) (50-75) % Lymph % (Auto) (25-40) % Cloud % (Auto) (3-14) % Eos % (Auto) (2-4) % Baso % (Auto) (0-2) % Neut # (Auto) (7777-0652) /uL Lymph # (Auto) (5550-4494) /uL Cloud # (Auto) (0-900) /uL Eos # (Auto) (0-450) /uL Baso # (Auto) (0-100) /uL PT (9.4-12.5) SECONDS INR (0.9-1.3) ABG Sample Site Left brachial Left brachial ABG pH 7.06 L* 7.04 L* (7.35-7.45) ABG pCO2 79.7 H* 78.1 H* (35-45) mmHg ABG pO2 422 H* 144 H (80-100) mmHg ABG HCO3 22 L 21 L (23-27) mmol/L ABG Total CO2 23 22 L (23-27) mmol/L ABG O2 Saturation 100 98 (95-100) % ABG Base Excess -9.4 L -11.0 L (-2-3) mmol/L Edward Test N/a N/a VBG pH (7.33-7.43) VBG pCO2 (45-50) mmHg VBG pO2 (35-45) mmHg VBG HCO3 (24-28) mmol/L VBG Total CO2 (24-29) mmol/L VBG O2 Saturation (70-75) % VBG Base Excess (0-4) mmol/L Respiration Rate 18 O2 Delivery Device Adult ventilator Adult ventilator Mode of Support Assist cont ventilat Assist cont ventilat FiO2 % 100 % % PEEP or CPAP 5 Sodium 130 L (137-145) mmol/L Potassium 4.9 D (3.4-5.1) mmol/L Chloride 100 (98-107) mmol/L Carbon Dioxide 19 L (22-32) mmol/L BUN 12 (7-17) mg/dL Creatinine 1.46 H (0.52-1.04) mg/dL Estimated GFR 44 L (>60) mL/min BUN/Creatinine Ratio 8.2 (6-22) Glucose 619 H* (70-100) mg/dL Hemoglobin A1c (4.0-6.0) % Lactate 4.2 H* (0.7-2.1) mmol/L Calcium 7.3 L (8.4-10.2) mg/dL Total Bilirubin (0.2-1.3) mg/dL AST (14-36) IU/L ALT (<35) IU/L Alkaline Phosphatase (38-126) U/L Total Creatine Kinase (30-135) U/L Troponin I (0.01-0.034) ng/mL NT-Pro-B Natriuret Pep (<125) pg/mL Total Protein (6.3-8.2) g/dL Albumin (3.5-5.0) g/dL Globulin (1.7-4.1) g/dL Albumin/Globulin Ratio (1.0-2.8) Procalcitonin (<0.5) ng/mL Ketones (<0.27) mmol/L Chlamy pneumoniae PCR (Not Detect) Adenovirus (PCR) (Not Detect) B. pertussis DNA (PCR) (Not Detect) B.parapertussis DNA PCR (Not Detecte) Coronavirus OC43 (PCR) (Not Detect) Coronavirus HKU1 (PCR) (Not Detect) Coronavirus 229E (PCR) (Not Detect) SARS-CoV-2 (PCR) (Not Detecte) Coronavirus NL63 (PCR) (Not Detect) Human Metapneumovir PCR (Not Detect) Influ A (H1N1 [place]) PCR (Not Detect) Influenza Type B (PCR) (Not Detect) M. pneumoniae (PCR) (Not Detect) Parainfluenza 1 (PCR) (Not Detect) Parainfluenza 2 (PCR) (Not Detect) Parainfluenza 3 (PCR) (Not Detect) Parainfluenza 4 (PCR) (Not Detect) RSV (PCR) (Not Detect) Entero/Rhino (PCR) (Not Detect) 09/16/24 09/16/24 09/16/24 Range/Units 16:27 17:41 20:15 WBC (4.5-11.0) X10^3/uL RBC (4.0-5.2) X10^6/uL Hgb (12.0-16.0) g/dL Hct (36-46) % MCV (80-100) fL MCH (26-34) PG MCHC (30-36) % RDW (11.6-14.8) % Plt Count (150-400) X10^3/uL Neut % (Auto) (50-75) % Lymph % (Auto) (25-40) % Cloud % (Auto) (3-14) % Eos % (Auto) (2-4) % Baso % (Auto) (0-2) % Neut # (Auto) (8619-4557) /uL Lymph # (Auto) (2801-0645) /uL Cloud # (Auto) (0-900) /uL Eos # (Auto) (0-450) /uL Baso # (Auto) (0-100) /uL PT (9.4-12.5) SECONDS INR (0.9-1.3) ABG Sample Site Right radial ABG pH 7.08 L* (7.35-7.45) ABG pCO2 70.0 H* (35-45) mmHg ABG pO2 87 (80-100) mmHg ABG HCO3 21 L (23-27) mmol/L ABG Total CO2 21 L (23-27) mmol/L ABG O2 Saturation 91 L (95-100) % ABG Base Excess -10.4 L (-2-3) mmol/L Edward Test N/a VBG pH (7.33-7.43) VBG pCO2 (45-50) mmHg VBG pO2 (35-45) mmHg VBG HCO3 (24-28) mmol/L VBG Total CO2 (24-29) mmol/L VBG O2 Saturation (70-75) % VBG Base Excess (0-4) mmol/L Respiration Rate 27 O2 Delivery Device Adult ventilator Mode of Support Assist cont ventilat FiO2 % 80 % % PEEP or CPAP 8 Sodium 129 L 124 L (137-145) mmol/L Potassium 5.3 H 3.2 L D (3.4-5.1) mmol/L Chloride 100 99 (98-107) mmol/L Carbon Dioxide 20 L 16 L (22-32) mmol/L BUN 16 17 (7-17) mg/dL Creatinine 1.80 H 2.29 H (0.52-1.04) mg/dL Estimated GFR 35 L 26 L (>60) mL/min BUN/Creatinine Ratio 8.9 7.4 (6-22) Glucose 514 H* 517 H* (70-100) mg/dL Hemoglobin A1c (4.0-6.0) % Lactate 2.7 H (0.7-2.1) mmol/L Calcium 7.6 L 7.3 L (8.4-10.2) mg/dL Total Bilirubin (0.2-1.3) mg/dL AST (14-36) IU/L ALT (<35) IU/L Alkaline Phosphatase (38-126) U/L Total Creatine Kinase (30-135) U/L Troponin I (0.01-0.034) ng/mL NT-Pro-B Natriuret Pep (<125) pg/mL Total Protein (6.3-8.2) g/dL Albumin (3.5-5.0) g/dL Globulin (1.7-4.1) g/dL Albumin/Globulin Ratio (1.0-2.8) Procalcitonin (<0.5) ng/mL Ketones (<0.27) mmol/L Chlamy pneumoniae PCR (Not Detect) Adenovirus (PCR) (Not Detect) B. pertussis DNA (PCR) (Not Detect) B.parapertussis DNA PCR (Not Detecte) Coronavirus OC43 (PCR) (Not Detect) Coronavirus HKU1 (PCR) (Not Detect) Coronavirus 229E (PCR) (Not Detect) SARS-CoV-2 (PCR) (Not Detecte) Coronavirus NL63 (PCR) (Not Detect) Human Metapneumovir PCR (Not Detect) Influ A (H1N1 [place]) PCR (Not Detect) Influenza Type B (PCR) (Not Detect) M. pneumoniae (PCR) (Not Detect) Parainfluenza 1 (PCR) (Not Detect) Parainfluenza 2 (PCR) (Not Detect) Parainfluenza 3 (PCR) (Not Detect) Parainfluenza 4 (PCR) (Not Detect) RSV (PCR) (Not Detect) Entero/Rhino (PCR) (Not Detect) 09/16/24 Range/Units 20:25 WBC (4.5-11.0) X10^3/uL RBC (4.0-5.2) X10^6/uL Hgb (12.0-16.0) g/dL Hct (36-46) % MCV (80-100) fL MCH (26-34) PG MCHC (30-36) % RDW (11.6-14.8) % Plt Count (150-400) X10^3/uL Neut % (Auto) (50-75) % Lymph % (Auto) (25-40) % Cloud % (Auto) (3-14) % Eos % (Auto) (2-4) % Baso % (Auto) (0-2) % Neut # (Auto) (7614-7525) /uL Lymph # (Auto) (9984-6171) /uL Cloud # (Auto) (0-900) /uL Eos # (Auto) (0-450) /uL Baso # (Auto) (0-100) /uL PT (9.4-12.5) SECONDS INR (0.9-1.3) ABG Sample Site Left radial ABG pH 7.10 L* (7.35-7.45) ABG pCO2 63.5 H* (35-45) mmHg ABG pO2 223 H (80-100) mmHg ABG HCO3 20 L (23-27) mmol/L ABG Total CO2 20 L (23-27) mmol/L ABG O2 Saturation 100 (95-100) % ABG Base Excess -11.1 L (-2-3) mmol/L Edward Test Positive VBG pH (7.33-7.43) VBG pCO2 (45-50) mmHg VBG pO2 (35-45) mmHg VBG HCO3 (24-28) mmol/L VBG Total CO2 (24-29) mmol/L VBG O2 Saturation (70-75) % VBG Base Excess (0-4) mmol/L Respiration Rate 35 O2 Delivery Device Adult ventilator Mode of Support Simv FiO2 % 100 % % PEEP or CPAP 8 Sodium (137-145) mmol/L Potassium (3.4-5.1) mmol/L Chloride (98-107) mmol/L Carbon Dioxide (22-32) mmol/L BUN (7-17) mg/dL Creatinine (0.52-1.04) mg/dL Estimated GFR (>60) mL/min BUN/Creatinine Ratio (6-22) Glucose (70-100) mg/dL Hemoglobin A1c (4.0-6.0) % Lactate (0.7-2.1) mmol/L Calcium (8.4-10.2) mg/dL Total Bilirubin (0.2-1.3) mg/dL AST (14-36) IU/L ALT (<35) IU/L Alkaline Phosphatase (38-126) U/L Total Creatine Kinase (30-135) U/L Troponin I (0.01-0.034) ng/mL NT-Pro-B Natriuret Pep (<125) pg/mL Total Protein (6.3-8.2) g/dL Albumin (3.5-5.0) g/dL Globulin (1.7-4.1) g/dL Albumin/Globulin Ratio (1.0-2.8) Procalcitonin (<0.5) ng/mL Ketones (<0.27) mmol/L Chlamy pneumoniae PCR (Not Detect) Adenovirus (PCR) (Not Detect) B. pertussis DNA (PCR) (Not Detect) B.parapertussis DNA PCR (Not Detecte) Coronavirus OC43 (PCR) (Not Detect) Coronavirus HKU1 (PCR) (Not Detect) Coronavirus 229E (PCR) (Not Detect) SARS-CoV-2 (PCR) (Not Detecte) Coronavirus NL63 (PCR) (Not Detect) Human Metapneumovir PCR (Not Detect) Influ A (H1N1 [place]) PCR (Not Detect) Influenza Type B (PCR) (Not Detect) M. pneumoniae (PCR) (Not Detect) Parainfluenza 1 (PCR) (Not Detect) Parainfluenza 2 (PCR) (Not Detect) Parainfluenza 3 (PCR) (Not Detect) Parainfluenza 4 (PCR) (Not Detect) RSV (PCR) (Not Detect) Entero/Rhino (PCR) (Not Detect) Point of Care Testing Glucose POC 275 MDM Narrative Medical decision making narrative: Patient presenting for shortness of breath following an upper respiratory infection. On arrival patient tachypneic, tachycardic, appears to have audible wheezing present, however when lungs are auscultated they are clear with good air movement. Respiratory therapy paged to evaluate patient and administered DuoNeb treatment. Laboratory work, chest x-ray ordered. Delay in laboratory work due to difficult IV stick. Nursing to attempt ultrasound-guided IV. Chest x-ray concerning for paramediastinal masses. CT angio of the chest ordered for assessment. CT angio chest taken, formal results of scan and blood work pending. Care of patient is signed out to Dr. Pineda at 0700. September 16, 2024 at 7:[address] Pineda: Sign out from Dr. Phelps. Patient will likely need admission. Requiring supplemental oxygen. CT imaging results are pending. After history and exam CBC CMP procalcitonin lactic acid blood culture CT chest x-ray chest Rocephin doxycycline ketones hemoglobin A1c respiratory panel [facility] Medical records reviewed: No recent visit for this complaint Differential considered: Includes but not limited to pneumonia bronchitis pulmonary embolism Lab Test results independently reviewed as above. Pertinent findings: WBC 15.8 sodium 128 potassium 3.8 bicarb 15 BUN 6 creatinine 0.67 glucose 502 troponin less than 0.012 Independently reviewed EKG sinus tachycardia rate 127 Imaging studies independently reviewed: CT chest concerning for atypical pneumonia Consultations: 8:30 a.m.. Started communicating with hospitalist, Dr. Griffin, would like insulin IV fluids repeat BMP 12:[address] Griffin, patient will need higher level of care with electric motor controls assembler, concern for developing ARDS 10:[address] Griffin, patient is now intubated. He is concerned about patient's glucose. We will rechecked. I am trying to order DKA protocol for patient. 1:[address] Griffin, he does not feel patient is in DKA. No insulin drip. He made orders for insulin/glucose management. 3:20 p.m.. Spoke with electric motor controls assembler on-call, tele electric motor controls assembler, recommends insulin drip. Recommends possible ketamine drip. Does agree with paralytics. Does agree for transfer to another facility. Does agree with Lasix for diuretic. Patient is not in DKA. 5:45 p.m.. Spoke with Mignon wahl electric motor controls assembler Dr. Betancourt, he recommends repeat ABG. Optimally would want 7.2 PH before transfer however we are maximizing everything very doing here that he agrees with. Patient is on succinylcholine drip as well as Levophed drip, may not need ketamine drip. Recommends increasing respiratory rate to 35. 6:15 p.m.. Spoke with Mignon wahl intensivists again, dr betancourt, no significant change and ABG. Recommends increasing respiratory rate to 35. He does understand we have done everything we can here and stat flight will be here in 20 minutes for transfer. Treatments: Rocephin doxycycline albuterol morphine Re-evaluations: 8:00 a.m. reviewed results with patient she does agree and understand need for admission. She states she does have diabetes. Is noncompliant with her metformin though. Numerous re-evaluations through the day with patient with condition and changes were done. Continuous communication with nursing staff and respiratory therapist and hospitalist 5:30 p.m.. I did speak with ex- Alpesh, who states he will be the point of contact for patient's care. There is nobody else. He does understand the risk of transferring including but not limited to worsening symptoms permanent injury with flight or Gram transport. We will go by flight transport today. 9:26 a.m.. Reviewed with patient. She is on high-flow. But work of breathing is significant. She is tachycardic. My concern is for respiratory demise and she agrees she does not want to worsen and at this time would be appropriate for intubation. Risks and benefits reviewed with her. She gives verbal consent. She is awake alert oriented x4. She states she does feel work of breathing is significant. Discussion: Appropriate for admission for atypical pneumonia requiring supplemental oxygen. Patient will need further workup for diabetes Diagnosis: Atypical pneumonia, respiratory failure 09/16/24 2145 - Patient intubated, sedated. Patient transported via ALS ground transport to [facility] in guarded but otherwise stable condition. Unable to fly due to weather conditions. <Carl Pineda MD - Last Filed: 09/18/24 08:53> Lab Data Labs: Lab Results 09/16/24 09/16/24 09/16/24 Range/Units 06:30 07:00 07:51 WBC 15.8 H (4.5-11.0) X10^3/uL RBC 5.37 H (4.0-5.2) X10^6/uL Hgb 15.4 (12.0-16.0) g/dL Hct 45.9 (36-46) % MCV 85.6 (80-100) fL MCH 28.6 (26-34) PG MCHC 33.4 (30-36) % RDW 13.4 (11.6-14.8) % Plt Count 198 (150-400) X10^3/uL Neut % (Auto) 82.1 H (50-75) % Lymph % (Auto) 11.1 L (25-40) % Cloud % (Auto) 6.6 (3-14) % Eos % (Auto) 0.0 L (2-4) % Baso % (Auto) 0.2 (0-2) % Neut # (Auto) 75458 H (4558-4490) /uL Lymph # (Auto) 1800 (3681-9043) /uL Cloud # (Auto) 1000 H (0-900) /uL Eos # (Auto) 0 (0-450) /uL Baso # (Auto) 0 (0-100) /uL PT 13.7 H (9.4-12.5) SECONDS INR 1.2 (0.9-1.3) ABG Sample Site ABG pH (7.35-7.45) ABG pCO2 (35-45) mmHg ABG pO2 (80-100) mmHg ABG HCO3 (23-27) mmol/L ABG Total CO2 (23-27) mmol/L ABG O2 Saturation (95-100) % ABG Base Excess (-2-3) mmol/L Edward Test VBG pH (7.33-7.43) VBG pCO2 (45-50) mmHg VBG pO2 (35-45) mmHg VBG HCO3 (24-28) mmol/L VBG Total CO2 (24-29) mmol/L VBG O2 Saturation (70-75) % VBG Base Excess (0-4) mmol/L Respiration Rate O2 Delivery Device Mode of Support FiO2 % % PEEP or CPAP Sodium 128 L (137-145) mmol/L Potassium 3.8 (3.4-5.1) mmol/L Chloride 98 (98-107) mmol/L Carbon Dioxide 15 L (22-32) mmol/L BUN 6 L (7-17) mg/dL Creatinine 0.67 (0.52-1.04) mg/dL Estimated GFR > 60 (>60) mL/min BUN/Creatinine Ratio 9.0 (6-22) Glucose 502 H* (70-100) mg/dL Hemoglobin A1c 10.0 H (4.0-6.0) % Lactate 3.4 H (0.7-2.1) mmol/L Calcium 8.7 (8.4-10.2) mg/dL Total Bilirubin 0.7 (0.2-1.3) mg/dL AST 26 (14-36) IU/L ALT 25 (<35) IU/L Alkaline Phosphatase 87 (38-126) U/L Total Creatine Kinase 63 (30-135) U/L Troponin I < 0.012 (0.01-0.034) ng/mL NT-Pro-B Natriuret Pep 142 H (<125) pg/mL Total Protein 7.0 (6.3-8.2) g/dL Albumin 4.0 (3.5-5.0) g/dL Globulin 3.0 (1.7-4.1) g/dL Albumin/Globulin Ratio 1.3 (1.0-2.8) Procalcitonin 2.00 H (<0.5) ng/mL Ketones 1.17 H (<0.27) mmol/L Chlamy pneumoniae PCR Not detected (Not Detect) Adenovirus (PCR) Not detected (Not Detect) B. pertussis DNA (PCR) Not detected (Not Detect) B.parapertussis DNA PCR Not detected (Not Detecte) Coronavirus OC43 (PCR) Not detected (Not Detect) Coronavirus HKU1 (PCR) Not detected (Not Detect) Coronavirus 229E (PCR) Not detected (Not Detect) SARS-CoV-2 (PCR) Not detected (Not Detecte) Coronavirus NL63 (PCR) Not detected (Not Detect) Human Metapneumovir PCR Not detected (Not Detect) Influ A (H1N1 [place]) PCR Detected H (Not Detect) Influenza Type B (PCR) Not detected (Not Detect) M. pneumoniae (PCR) Not detected (Not Detect) Parainfluenza 1 (PCR) Not detected (Not Detect) Parainfluenza 2 (PCR) Not detected (Not Detect) Parainfluenza 3 (PCR) Not detected (Not Detect) Parainfluenza 4 (PCR) Not detected (Not Detect) RSV (PCR) Not detected (Not Detect) Entero/Rhino (PCR) Not detected (Not Detect) 09/16/24 09/16/24 09/16/24 Range/Units 08:44 10:02 10:59 WBC (4.5-11.0) X10^3/uL RBC (4.0-5.2) X10^6/uL Hgb (12.0-16.0) g/dL Hct (36-46) % MCV (80-100) fL MCH (26-34) PG MCHC (30-36) % RDW (11.6-14.8) % Plt Count (150-400) X10^3/uL Neut % (Auto) (50-75) % Lymph % (Auto) (25-40) % Cloud % (Auto) (3-14) % Eos % (Auto) (2-4) % Baso % (Auto) (0-2) % Neut # (Auto) (7540-4112) /uL Lymph # (Auto) (9634-7213) /uL Cloud # (Auto) (0-900) /uL Eos # (Auto) (0-450) /uL Baso # (Auto) (0-100) /uL PT (9.4-12.5) SECONDS INR (0.9-1.3) ABG Sample Site ABG pH (7.35-7.45) ABG pCO2 (35-45) mmHg ABG pO2 (80-100) mmHg ABG HCO3 (23-27) mmol/L ABG Total CO2 (23-27) mmol/L ABG O2 Saturation (95-100) % ABG Base Excess (-2-3) mmol/L Edward Test VBG pH 7.31 L (7.33-7.43) VBG pCO2 32.8 L (45-50) mmHg VBG pO2 63 H (35-45) mmHg VBG HCO3 16 L (24-28) mmol/L VBG Total CO2 16 L (24-29) mmol/L VBG O2 Saturation 90 H (70-75) % VBG Base Excess -8.7 L (0-4) mmol/L Respiration Rate O2 Delivery Device Mode of Support FiO2 % % PEEP or CPAP Sodium 134 L (137-145) mmol/L Potassium 3.5 (3.4-5.1) mmol/L Chloride 105 (98-107) mmol/L Carbon Dioxide 17 L (22-32) mmol/L BUN 8 (7-17) mg/dL Creatinine 1.06 H (0.52-1.04) mg/dL Estimated GFR > 60 (>60) mL/min BUN/Creatinine Ratio 7.5 (6-22) Glucose 510 H* (70-100) mg/dL Hemoglobin A1c (4.0-6.0) % Lactate 3.7 H (0.7-2.1) mmol/L Calcium 6.6 L (8.4-10.2) mg/dL Total Bilirubin 0.3 (0.2-1.3) mg/dL AST 23 (14-36) IU/L ALT 22 (<35) IU/L Alkaline Phosphatase 64 (38-126) U/L Total Creatine Kinase (30-135) U/L Troponin I (0.01-0.034) ng/mL NT-Pro-B Natriuret Pep (<125) pg/mL Total Protein 5.7 L (6.3-8.2) g/dL Albumin 3.0 L (3.5-5.0) g/dL Globulin 2.7 (1.7-4.1) g/dL Albumin/Globulin Ratio 1.1 (1.0-2.8) Procalcitonin (<0.5) ng/mL Ketones (<0.27) mmol/L Chlamy pneumoniae PCR (Not Detect) Adenovirus (PCR) (Not Detect) B. pertussis DNA (PCR) (Not Detect) B.parapertussis DNA PCR (Not Detecte) Coronavirus OC43 (PCR) (Not Detect) Coronavirus HKU1 (PCR) (Not Detect) Coronavirus 229E (PCR) (Not Detect) SARS-CoV-2 (PCR) (Not Detecte) Coronavirus NL63 (PCR) (Not Detect) Human Metapneumovir PCR (Not Detect) Influ A (H1N1 [place]as) PCR (Not Detect) Influenza Type B (PCR) (Not Detect) M. pneumoniae (PCR) (Not Detect) Parainfluenza 1 (PCR) (Not Detect) Parainfluenza 2 (PCR) (Not Detect) Parainfluenza 3 (PCR) (Not Detect) Parainfluenza 4 (PCR) (Not Detect) RSV (PCR) (Not Detect) Entero/Rhino (PCR) (Not Detect) 09/16/24 09/16/24 09/16/24 Range/Units 11:55 14:11 15:05 WBC (4.5-11.0) X10^3/uL RBC (4.0-5.2) X10^6/uL Hgb (12.0-16.0) g/dL Hct (36-46) % MCV (80-100) fL MCH (26-34) PG MCHC (30-36) % RDW (11.6-14.8) % Plt Count (150-400) X10^3/uL Neut % (Auto) (50-75) % Lymph % (Auto) (25-40) % Cloud % (Auto) (3-14) % Eos % (Auto) (2-4) % Baso % (Auto) (0-2) % Neut # (Auto) (2260-1680) /uL Lymph # (Auto) (2412-6809) /uL Cloud # (Auto) (0-900) /uL Eos # (Auto) (0-450) /uL Baso # (Auto) (0-100) /uL PT (9.4-12.5) SECONDS INR (0.9-1.3) ABG Sample Site Left brachial Left brachial ABG pH 7.06 L* 7.04 L* (7.35-7.45) ABG pCO2 79.7 H* 78.1 H* (35-45) mmHg ABG pO2 422 H* 144 H (80-100) mmHg ABG HCO3 22 L 21 L (23-27) mmol/L ABG Total CO2 23 22 L (23-27) mmol/L ABG O2 Saturation 100 98 (95-100) % ABG Base Excess -9.4 L -11.0 L (-2-3) mmol/L Edward Test N/a N/a VBG pH (7.33-7.43) VBG pCO2 (45-50) mmHg VBG pO2 (35-45) mmHg VBG HCO3 (24-28) mmol/L VBG Total CO2 (24-29) mmol/L VBG O2 Saturation (70-75) % VBG Base Excess (0-4) mmol/L Respiration Rate 18 O2 Delivery Device Adult ventilator Adult ventilator Mode of Support Assist cont ventilat Assist cont ventilat FiO2 % 100 % % PEEP or CPAP 5 Sodium 130 L (137-145) mmol/L Potassium 4.9 D (3.4-5.1) mmol/L Chloride 100 (98-107) mmol/L Carbon Dioxide 19 L (22-32) mmol/L BUN 12 (7-17) mg/dL Creatinine 1.46 H (0.52-1.04) mg/dL Estimated GFR 44 L (>60) mL/min BUN/Creatinine Ratio 8.2 (6-22) Glucose 619 H* (70-100) mg/dL Hemoglobin A1c (4.0-6.0) % Lactate 4.2 H* (0.7-2.1) mmol/L Calcium 7.3 L (8.4-10.2) mg/dL Total Bilirubin (0.2-1.3) mg/dL AST (14-36) IU/L ALT (<35) IU/L Alkaline Phosphatase (38-126) U/L Total Creatine Kinase (30-135) U/L Troponin I (0.01-0.034) ng/mL NT-Pro-B Natriuret Pep (<125) pg/mL Total Protein (6.3-8.2) g/dL Albumin (3.5-5.0) g/dL Globulin (1.7-4.1) g/dL Albumin/Globulin Ratio (1.0-2.8) Procalcitonin (<0.5) ng/mL Ketones (<0.27) mmol/L Chlamy pneumoniae PCR (Not Detect) Adenovirus (PCR) (Not Detect) B. pertussis DNA (PCR) (Not Detect) B.parapertussis DNA PCR (Not Detecte) Coronavirus OC43 (PCR) (Not Detect) Coronavirus HKU1 (PCR) (Not Detect) Coronavirus 229E (PCR) (Not Detect) SARS-CoV-2 (PCR) (Not Detecte) Coronavirus NL63 (PCR) (Not Detect) Human Metapneumovir PCR (Not Detect) Influ A (H1N1 [place]) PCR (Not Detect) Influenza Type B (PCR) (Not Detect) M. pneumoniae (PCR) (Not Detect) Parainfluenza 1 (PCR) (Not Detect) Parainfluenza 2 (PCR) (Not Detect) Parainfluenza 3 (PCR) (Not Detect) Parainfluenza 4 (PCR) (Not Detect) RSV (PCR) (Not Detect) Entero/Rhino (PCR) (Not Detect) 09/16/24 09/16/24 09/16/24 Range/Units 16:27 17:41 20:15 WBC (4.5-11.0) X10^3/uL RBC (4.0-5.2) X10^6/uL Hgb (12.0-16.0) g/dL Hct (36-46) % MCV (80-100) fL MCH (26-34) PG MCHC (30-36) % RDW (11.6-14.8) % Plt Count (150-400) X10^3/uL Neut % (Auto) (50-75) % Lymph % (Auto) (25-40) % Cloud % (Auto) (3-14) % Eos % (Auto) (2-4) % Baso % (Auto) (0-2) % Neut # (Auto) (7686-1632) /uL Lymph # (Auto) (4798-6134) /uL Cloud # (Auto) (0-900) /uL Eos # (Auto) (0-450) /uL Baso # (Auto) (0-100) /uL PT (9.4-12.5) SECONDS INR (0.9-1.3) ABG Sample Site Right radial ABG pH 7.08 L* (7.35-7.45) ABG pCO2 70.0 H* (35-45) mmHg ABG pO2 87 (80-100) mmHg ABG HCO3 21 L (23-27) mmol/L ABG Total CO2 21 L (23-27) mmol/L ABG O2 Saturation 91 L (95-100) % ABG Base Excess -10.4 L (-2-3) mmol/L Edward Test N/a VBG pH (7.33-7.43) VBG pCO2 (45-50) mmHg VBG pO2 (35-45) mmHg VBG HCO3 (24-28) mmol/L VBG Total CO2 (24-29) mmol/L VBG O2 Saturation (70-75) % VBG Base Excess (0-4) mmol/L Respiration Rate 27 O2 Delivery Device Adult ventilator Mode of Support Assist cont ventilat FiO2 % 80 % % PEEP or CPAP 8 Sodium 129 L 124 L (137-145) mmol/L Potassium 5.3 H 3.2 L D (3.4-5.1) mmol/L Chloride 100 99 (98-107) mmol/L Carbon Dioxide 20 L 16 L (22-32) mmol/L BUN 16 17 (7-17) mg/dL Creatinine 1.80 H 2.29 H (0.52-1.04) mg/dL Estimated GFR 35 L 26 L (>60) mL/min BUN/Creatinine Ratio 8.9 7.4 (6-22) Glucose 514 H* 517 H* (70-100) mg/dL Hemoglobin A1c (4.0-6.0) % Lactate 2.7 H (0.7-2.1) mmol/L Calcium 7.6 L 7.3 L (8.4-10.2) mg/dL Total Bilirubin (0.2-1.3) mg/dL AST (14-36) IU/L ALT (<35) IU/L Alkaline Phosphatase (38-126) U/L Total Creatine Kinase (30-135) U/L Troponin I (0.01-0.034) ng/mL NT-Pro-B Natriuret Pep (<125) pg/mL Total Protein (6.3-8.2) g/dL Albumin (3.5-5.0) g/dL Globulin (1.7-4.1) g/dL Albumin/Globulin Ratio (1.0-2.8) Procalcitonin (<0.5) ng/mL Ketones (<0.27) mmol/L Chlamy pneumoniae PCR (Not Detect) Adenovirus (PCR) (Not Detect) B. pertussis DNA (PCR) (Not Detect) B.parapertussis DNA PCR (Not Detecte) Coronavirus OC43 (PCR) (Not Detect) Coronavirus HKU1 (PCR) (Not Detect) Coronavirus 229E (PCR) (Not Detect) SARS-CoV-2 (PCR) (Not Detecte) Coronavirus NL63 (PCR) (Not Detect) Human Metapneumovir PCR (Not Detect) Influ A (H1N1 Seas) PCR (Not Detect) Influenza Type B (PCR) (Not Detect) M. pneumoniae (PCR) (Not Detect) Parainfluenza 1 (PCR) (Not Detect) Parainfluenza 2 (PCR) (Not Detect) Parainfluenza 3 (PCR) (Not Detect) Parainfluenza 4 (PCR) (Not Detect) RSV (PCR) (Not Detect) Entero/Rhino (PCR) (Not Detect) 09/16/24 Range/Units 20:25 WBC (4.5-11.0) X10^3/uL RBC (4.0-5.2) X10^6/uL Hgb (12.0-16.0) g/dL Hct (36-46) % MCV (80-100) fL MCH (26-34) PG MCHC (30-36) % RDW (11.6-14.8) % Plt Count (150-400) X10^3/uL Neut % (Auto) (50-75) % Lymph % (Auto) (25-40) % Cloud % (Auto) (3-14) % Eos % (Auto) (2-4) % Baso % (Auto) (0-2) % Neut # (Auto) (4219-2353) /uL Lymph # (Auto) (3996-5076) /uL Cloud # (Auto) (0-900) /uL Eos # (Auto) (0-450) /uL Baso # (Auto) (0-100) /uL PT (9.4-12.5) SECONDS INR (0.9-1.3) ABG Sample Site Left radial ABG pH 7.10 L* (7.35-7.45) ABG pCO2 63.5 H* (35-45) mmHg ABG pO2 223 H (80-100) mmHg ABG HCO3 20 L (23-27) mmol/L ABG Total CO2 20 L (23-27) mmol/L ABG O2 Saturation 100 (95-100) % ABG Base Excess -11.1 L (-2-3) mmol/L Edward Test Positive VBG pH (7.33-7.43) VBG pCO2 (45-50) mmHg VBG pO2 (35-45) mmHg VBG HCO3 (24-28) mmol/L VBG Total CO2 (24-29) mmol/L VBG O2 Saturation (70-75) % VBG Base Excess (0-4) mmol/L Respiration Rate 35 O2 Delivery Device Adult ventilator Mode of Support Simv FiO2 % 100 % % PEEP or CPAP 8 Sodium (137-145) mmol/L Potassium (3.4-5.1) mmol/L Chloride (98-107) mmol/L Carbon Dioxide (22-32) mmol/L BUN (7-17) mg/dL Creatinine (0.52-1.04) mg/dL Estimated GFR (>60) mL/min BUN/Creatinine Ratio (6-22) Glucose (70-100) mg/dL Hemoglobin A1c (4.0-6.0) % Lactate (0.7-2.1) mmol/L Calcium (8.4-10.2) mg/dL Total Bilirubin (0.2-1.3) mg/dL AST (14-36) IU/L ALT (<35) IU/L Alkaline Phosphatase (38-126) U/L Total Creatine Kinase (30-135) U/L Troponin I (0.01-0.034) ng/mL NT-Pro-B Natriuret Pep (<125) pg/mL Total Protein (6.3-8.2) g/dL Albumin (3.5-5.0) g/dL Globulin (1.7-4.1) g/dL Albumin/Globulin Ratio (1.0-2.8) Procalcitonin (<0.5) ng/mL Ketones (<0.27) mmol/L Chlamy pneumoniae PCR (Not Detect) Adenovirus (PCR) (Not Detect) B. pertussis DNA (PCR) (Not Detect) B.parapertussis DNA PCR (Not Detecte) Coronavirus OC43 (PCR) (Not Detect) Coronavirus HKU1 (PCR) (Not Detect) Coronavirus 229E (PCR) (Not Detect) SARS-CoV-2 (PCR) (Not Detecte) Coronavirus NL63 (PCR) (Not Detect) Human Metapneumovir PCR (Not Detect) Influ A (H1N1 Seas) PCR (Not Detect) Influenza Type B (PCR) (Not Detect) M. pneumoniae (PCR) (Not Detect) Parainfluenza 1 (PCR) (Not Detect) Parainfluenza 2 (PCR) (Not Detect) Parainfluenza 3 (PCR) (Not Detect) Parainfluenza 4 (PCR) (Not Detect) RSV (PCR) (Not Detect) Entero/Rhino (PCR) (Not Detect) Point of Care Testing Glucose POC [address] scan - chest: Radiologist's Impression: [address] [address] [address] Scan Report Signed Patient: Allison Gay MR#: [id number] : 1975 Acct:[id number] Age/Sex: 48 / F Date of Service: 09/16/24 Loc: ED Accession Number: [id number] Procedure: CT angio chest Ordering Provider: Ada Phelps MD PROCEDURE: CT ANGIO CHEST INDICATIONS: bilat paramediastinal masses, dyspnea TECHNIQUE: After the administration of intravenous contrast, 2 mm thick sections acquired from the pulmonary apices to the posterior costophrenic angles. 3-dimensional maximum intensity projection (MIP) coronal and sagittal reformats were then acquired through the thorax. For radiation dose reduction, the following was used: automated exposure control, adjustment of mA and/or kV according to patient size. COMPARISON: None. FINDINGS: Image quality: Diagnostic. Suboptimal contrast timing. Pulmonary arteries: Pulmonary arteries are normal in size, and demonstrate no intraluminal filling defects to suggest central pulmonary embolism. Lower Neck: No enlarged lymph nodes. Thyroid: 1.7 cm right thyroid nodule, previously worked up. Axillae: No enlarged lymph nodes. Chest Wall: Unremarkable. Bones: Unremarkable. Lungs and Pleura: No pneumothorax or pleural effusions. Multifocal ground- glass. There is associated cystic change within the ground-glass. Diffuse bronchial thickening period Heart: Heart size is normal. No pericardial effusion. Thoracic Vessels: No aortic aneurysm. Mediastinum and Renee: No enlarged lymph nodes. Esophagus: No wall thickening. No hiatal hernia. Upper Abdomen: Renal cysts are present. IMPRESSION: No pulmonary embolus, although evaluation is suboptimal due to contrast timing. Multifocal ground-glass, with associated central cystic change. Findings are concerning for atypical pneumonia. Differential includes vasculitis. Recommend pulmonology referral. Recommend three-month follow-up with chest CT to ensure resolution. Agree with preliminary report. Dictated by: Des Marie M.D. on 09/16/2024 at 7:42 Approved by: Des Marie M.D. on 09/16/2024 at 7:45 [facility] Narrative Medical decision making narrative: Patient presenting for shortness of breath following an upper respiratory infection. On arrival patient tachypneic, tachycardic, appears to have audible wheezing present, however when lungs are auscultated they are clear with good air movement. Respiratory therapy paged to evaluate patient and administered DuoNeb treatment. Laboratory work, chest x-ray ordered. Delay in laboratory work due to difficult IV stick. Nursing to attempt ultrasound-guided IV. Chest x-ray concerning for paramediastinal masses. CT angio of the chest ordered for assessment. CT angio chest taken, formal results of scan and blood work pending. Care of patient is signed out to Dr. Pineda at 0700. September 16, 2024 at 7:[address] Pineda: Sign out from Dr. Phelps. Patient will likely need admission. Requiring supplemental oxygen. CT imaging results are pending. After history and exam CBC CMP procalcitonin lactic acid blood culture CT chest x-ray chest Rocephin doxycycline ketones hemoglobin A1c respiratory panel [facility] Medical records reviewed: No recent visit for this complaint Differential considered: Includes but not limited to pneumonia bronchitis pulmonary embolism Lab Test results independently reviewed as above. Pertinent findings: WBC 15.8 sodium 128 potassium 3.8 bicarb 15 BUN 6 creatinine 0.67 glucose 502 troponin less than 0.012 Independently reviewed EKG sinus tachycardia rate 127 Imaging studies independently reviewed: CT chest concerning for atypical pneumonia Consultations: 8:30 a.m.. Started communicating with hospitalist, Dr. Griffin, would like insulin IV fluids repeat BMP 12:[address] Griffin, patient will need higher level of care with electric motor controls assembler, concern for developing ARDS, will need proning 10:[address] Griffin, patient is now intubated. He is concerned about patient's glucose. We will rechecked. I am trying to order DKA protocol for patient. 1:[address] Griffin, he does not feel patient is in DKA. No insulin drip. He made orders for insulin/glucose management. 3:20 p.m.. Spoke with electric motor controls assembler on-call, tele electric motor controls assembler, recommends insulin drip. Recommends possible ketamine drip. Does agree with paralytics. Does agree for transfer to another facility. Does agree with Lasix for diuretic. Patient is not in DKA. Patient may need bronchoscopy. We do not have capability bronchoscopy here. Agrees patient should be transferred. 5:45 p.m.. Spoke with Mignon wahl electric motor controls assembler Dr. Betancourt, he recommends repeat ABG. Optimally would want 7.2 PH before transfer however we are maximizing everything very doing here that he agrees with. Patient is on succinylcholine drip as well as Levophed drip, may not need ketamine drip. Recommends increasing respiratory rate to 35. He has agreed with current management of patient. He has gone through extensive checklist that he would implement in this situation and I have met those need for the patient and ventilator management. I have reviewed with him laboratory studies as well as radiographic studies and vital signs. I did review with him patient may need bronchoscopy. We do not have capability for bronchoscopy here. 6:15 p.m.. Spoke with Mignon wahl intensivists again, dr betancourt, no significant change and ABG. Recommends increasing respiratory rate to 35. He does understand we have done everything we can here and stat flight will be here in 20 minutes for transfer. Treatments: Rocephin doxycycline albuterol morphine Re-evaluations: 7:[address] Pineda: The above review of systems and physical exam was conducted by Dr. Phelps prior to my arrival. Introduced myself to patient. Examination of the patient reveals respiratory distress with tachypnea and very very coarse lung sounds. I informed her I am concerned about her breathing status. 8:00 a.m. reviewed results with patient she does agree and understand need for admission. She states she does have diabetes. Is noncompliant with her metformin though. I did review with patient we will be trying different modalities oxygen support. She is aware that intubation may be required. But at this time she would like to try other modalities/noninvasive. She is awake alert oriented x4. We will try high-flow as well as BiPAP.. She does understand. She will try these modalities. Patient did have small amount of hemoptysis and at this time respiratory therapist and I agree not to do BiPAP. Patient has been on high flow. 9:26 a.m.. Reviewed with patient. She is on high-flow. But work of breathing is significant. She is tachycardic. My concern is for respiratory demise and she agrees she does not want to worsen and at this time would be appropriate for intubation. Risks and benefits reviewed with her. She gives verbal consent. She is awake alert oriented x4. She states she does feel work of breathing is significant. 5:30 p.m.. I did speak with ex- Alpesh, who states he will be the point of contact for patient's care. There is nobody else. He does understand the risk of transferring including but not limited to worsening symptoms permanent injury with flight or Gram transport. We will go by flight transport today. 6:20 p.m.. Stat flight is due to be here at 6:30 p.m.. To transport patient. I have informed staff nursing and ex- of this. My shift has ended at 6:[address] Phelps has returned to security shift manager. Is aware of patient's condition and will be transferred by flight helicopter at 6:30 p.m.. Discussion: Appropriate for transfer for higher level of care. I have reviewed with hospitalist here Dr. Griffin, and he states he is unable to care for patient here. Patient needs electric motor controls assembler for management. I have consulted 2 separate electric motor controls assembler during course of management and they have agreed I have done everything I can do here. I have maximize our resources and despite not able to improve on laboratory studies, benefit outweigh the risks for transfer patient. I have contacted hospitalist here, Dr Griffin, for help managing patient's diabetes and glucose. I have reached out and contacted two electric motor controls assembler for ventilator management. Please see nurse's note on times intubation and changes in medications and ventilator management changes as well as respiratory therapy management notes. Numerous re-evaluations through the day with patient with condition and changes were done. Continuous communication with nursing staff and respiratory therapist and hospitalistI have been in continuous communication with nursing staff in managing patient's treatment as well as with 2 respiratory therapists. My desk is immediately next to patient's room and patient is in eyeview. Diagnosis: Atypical pneumonia, respiratory failure, ARDS, hyperglycemia 09/16/24 5334 - Patient intubated, sedated. Patient transported via ALS ground transport to [facility] in guarded but otherwise stable condition. Unable to fly due to weather conditions. Critical Care Time <Carl Pineda MD - Last Filed: 09/18/24 08:53> Critical Care Time Attestation: Critical Care Time 75 minutes: Critical care time is separate from other billable procedures. This critical care time includes consultation with family and other consulting doctors, review of records, and interpretation of data from labs, EKGs, imaging, etc. Discharge Plan Departure Patient Disposition: [facility] Clinical Impression: Acute hyperglycemia, Acute respiratory distress syndrome (ARDS) Community acquired pneumonia Qualifiers: Laterality: unspecified laterality Qualified Code(s): J18.9 - Pneumonia, unspecified organism Respiratory failure Qualifiers: Chronicity: acute Respiratory failure complication: hypoxia Qualified Code(s): J96.01 - Acute respiratory failure with hypoxia Prescriptions: No Action bupropion HCl 150 mg tablet extended release 12 hr 2 tab PO QAM dextroamphetamine-amphetamine 10 mg tablet 1 tab PO BID Patient Comments: take 1 tablet by mouth twice a day hydroxyzine pamoate 25 mg capsule 1 cap PO TID PRN (Reason: Anxiety) Patient Comments: take 1 capsule by mouth UP TO three times a day if needed for anxiety quetiapine 400 mg tablet 1 tab PO BEDTIME Patient Comments: take 1 tablet by mouth at bedtime hydrocodone-acetaminophen [[place]] 5-325 mg tablet 1 tab PO Q4-6H PRN (Reason: acute wrist pain) Qty: 4 0RF magnesium citrate Solution 37.5 ml PO BID PRN (Reason: constipation) Qty: 296 0RF
[2024-09-16] MEDS: ALBUTEROL/IPRATROPIUM 3 ML AMPUL INH (05:25)
[2024-09-16] MEDS: MORPHINE 4 MG/ML INJ IV (06:34)
[2024-09-16 06:43] LABS: Add Manual Diff / Slide Review NO; Basophils Absolute Auto 0 /uL (0-100); Basophils Percent Auto 0.2 % (0-2); Eosinophils Absolute Auto 0 /uL (0-450); Hematocrit 45.9 % (36-46); Hemoglobin 15.4 g/dL (12.0-16.0); Lymphocytes Absolute Auto 1800 /uL (1100-4500); Lymphocytes Percent Auto 11.1 % (25-40); Mean Corpuscular HGB Conc 33.4 % (30-36); Mean Corpuscular Hemoglobin 28.6 PG (26-34); Mean Corpuscular Volume 85.6 fL (80-100); Monocytes Absolute Auto 1000 /uL (0-900); Monocytes Percent Auto 6.6 % (3-14); Neutrophils Absolute Auto 13000 /uL (1500-7000); Neutrophils Percent Auto 82.1 % (50-75); Platelet Count 198 X10^3/uL (150-400); Red Blood Cell Count 5.37 X10^6/uL (4.0-5.2); Red Cell Distribution Width 13.4 % (11.6-14.8); White Blood Cell Count 15.8 X10^3/uL (4.5-11.0)
--- NOTE | 2024-09-16 06:51 | DI.CT.S_ITS ---
PROCEDURE: CT ANGIO CHEST INDICATIONS: bilat paramediastinal masses, dyspnea TECHNIQUE: After the administration of intravenous contrast, 2 mm thick sections acquired from the pulmonary apices to the posterior costophrenic angles. 3-dimensional maximum intensity projection (MIP) coronal and sagittal reformats were then acquired through the thorax. For radiation dose reduction, the following was used: automated exposure control, adjustment of mA and/or kV according to patient size. COMPARISON: None. FINDINGS: Image quality: Diagnostic. Suboptimal contrast timing. Pulmonary arteries: Pulmonary arteries are normal in size, and demonstrate no intraluminal filling defects to suggest central pulmonary embolism. Lower Neck: No enlarged lymph nodes. Thyroid: 1.7 cm right thyroid nodule, previously worked up. Axillae: No enlarged lymph nodes. Chest Wall: Unremarkable. Bones: Unremarkable. Lungs and Pleura: No pneumothorax or pleural effusions. Multifocal ground-glass. There is associated cystic change within the ground-glass. Diffuse bronchial thickening period Heart: Heart size is normal. No pericardial effusion. Thoracic Vessels: No aortic aneurysm. Mediastinum and Renee: No enlarged lymph nodes. Esophagus: No wall thickening. No hiatal hernia. Upper Abdomen: Renal cysts are present. IMPRESSION: No pulmonary embolus, although evaluation is suboptimal due to contrast timing. Multifocal ground-glass, with associated central cystic change. Findings are concerning for atypical pneumonia. Differential includes vasculitis. Recommend pulmonology referral. Recommend three-month follow-up with chest CT to ensure resolution. Agree with preliminary report. Dictated by: Des Marie M.D. on 09/16/2024 at 7:42 Approved by: Des Marie M.D. on 09/16/2024 at 7:45
[2024-09-16 07:23] LABS: INR 1.2 (0.9-1.3); Prothrombin Time 13.7 SECONDS (9.4-12.5)
[2024-09-16] MEDS: SODIUM CHLORIDE 0.9% 1,000 ML 1000 ML IV ×3 (07:25→11:36)
[2024-09-16 07:37] LABS: Alanine Aminotransferase 25 IU/L (<35); Albumin Globulin Ratio 1.3 (1.0-2.8); Alkaline Phosphatase 87 U/L (38-126); Aspartate Aminotransferase 26 IU/L (14-36); Bilirubin Total 0.7 mg/dL (0.2-1.3); Blood Urea Nitrogen 6 mg/dL (7-17); Calcium 8.7 mg/dL (8.4-10.2); Carbon Dioxide 15 mmol/L (22-32); Chloride 98 mmol/L (98-107); Creatine Kinase 63 U/L (30-135); Estimated Glomerular Filt Rate > 60 mL/min (>60); Potassium 3.8 mmol/L (3.4-5.1); Sodium 128 mmol/L (137-145)
[2024-09-16 07:39] LABS: Glucose 502 mg/dL (70-100)
[2024-09-16 07:47] LABS: HEMOLYSIS < 15 (0-50); NT-proBNP (BNP-Adult 18+) 142 pg/mL (<125)
[2024-09-16 07:49] LABS: Troponin I < 0.012 ng/mL (0.01-0.034)
[2024-09-16] MEDS: cefTRIAXone 2,000 MG in SODIUM CHLORIDE 0.9% 100 ML 200 MG IV (07:55)
[2024-09-16 08:03] LABS: Lactate (Lactic Acid) 3.4 mmol/L (0.7-2.1)
[2024-09-16 08:07] LABS: Ketones (Beta-Hydroxybutyrate) 1.17 mmol/L (<0.27)
[2024-09-16] MEDS: ALBUTEROL 2.5 MG/3 ML NEB (ADULT) 5 MG INH (08:21)
[2024-09-16] MEDS: HYDROMORPHONE 1 MG INJ IV (08:30)
[2024-09-16 08:53] LABS: Base Excess VBG -8.7 mmol/L (0-4); HCO3 VBG 16 mmol/L (24-28); Oxygen Saturation VBG 90 % (70-75); PCO2 VBG 32.8 mmHg (45-50); PO2 VBG 63 mmHg (35-45); Total CO2 VBG 16 mmol/L (24-29); pH VBG 7.31 (7.33-7.43)
[2024-09-16] MEDS: DOXYCYCLINE 100 MG in SODIUM CHLORIDE 0.9% 100 ML IV (08:55)
[2024-09-16] MEDS: INSULIN REGULAR 100 UNIT/ML 3 ML VIAL 10 UNIT IV (08:58)
[2024-09-16 09:03] LABS: Adenovirus Not Detected (Not Detect); B. parapertussis Not Detected (Not Detecte); Bordetella pertussis Not Detected (Not Detect); Chlamydophila pneumoniae Not Detected (Not Detect); Coronavirus 229E Not Detected (Not Detect); Coronavirus HKU1 Not Detected (Not Detect); Coronavirus NL 63 Not Detected (Not Detect); Coronavirus OC43 Not Detected (Not Detect); Human Metapneumovirus Not Detected (Not Detect); Human Rhinovirus/Enterovirus Not Detected (Not Detect); Influenza A H1-2009 Detected (Not Detect); Influenza B Not Detected (Not Detect); Mycoplasma pneumoniae Not Detected (Not Detect); Parainfluenza Virus 1 Not Detected (Not Detect); Parainfluenza Virus 2 Not Detected (Not Detect); Parainfluenza Virus 3 Not Detected (Not Detect); Parainfluenza Virus 4 Not Detected (Not Detect); Respiratory Syncytial Virus Not Detected (Not Detect); SARS- CoV-2 Not Detected (Not Detecte)
--- NOTE | 2024-09-16 09:03 | RT ---
pt rayray aceves MD informed pt still sob and in mod distress.
[2024-09-16 09:29] LABS: Reflexed Lactate in 2 Hours Y
--- NOTE | 2024-09-16 09:44 | PC.NURSE ---
Addendum entered by Betsey Barrera R.N. 09/16/24 11:23: Pharmacist @ bedside for intubation. Original Note: Pt moved to room 1 for intubation, increased WOB, physician/RT/ChargeRN/PrimaryRN at bedside.
[2024-09-16] MEDS: propofoL 200 MG/20 ML VIAL 120 MG IV (09:45)
[2024-09-16] MEDS: ROCURONIUM 50 MG/5 ML INJ 30 MG IV (09:45)
--- NOTE | 2024-09-16 09:57 | DI.RAD.S_ITS ---
PROCEDURE: XR CHEST 1V INDICATIONS: Intubation/OG tube TECHNIQUE: One view of the chest was acquired. COMPARISON: [facility], CT, CT CHEST WITHOUT CONTRAST, 01/19/2022, 15:58. [facility], CT, CT ANGIO CHEST, 09/16/2024, 6:39. [facility], CR, XR CHEST 1V, 09/16/2024, 5:46. FINDINGS: Surgical changes and devices: ET tube and OG tube in satisfactory position Lungs and pleura: Short interval progression of bilateral perihilar and a pickle airspace consolidation. By CT, the appearance suggest at atypical pneumonia. Atypical pattern of progressing alveolar pulmonary edema should also be considered. No pleural effusions or pneumothorax. Mediastinum: Mediastinal contours appear normal. Heart size is normal. Bones and chest wall: No suspicious bony lesions. Overlying soft tissues appear unremarkable. IMPRESSION: 1. Lines and tubes in satisfactory position. 2. Short interval progression of pulmonary infiltrates. Consider atypical pneumonia. Consider atypical pattern of worsening pulmonary edema. Dictated by: Micah Henao M.D. on 09/16/2024 at 10:49 Approved by: Micah Henao M.D. on 09/16/2024 at 10:52
[2024-09-16] MEDS: fentaNYL 1,000 MCG in DEXTROSE 5% IN WATER 230 ML 15.876 MCG IV (09:58)
[2024-09-16] MEDS: propofoL 1,000 MG/100 ML VIAL 2.722 MG IV (09:59)
--- NOTE | 2024-09-16 10:00 | PC.NURSE ---
Pt prepared for intubation at 944 in room 1, timeout called at 946, ED physician, pharmacist, RT, machine cementer and folder, and primary RN at bedside. Procedure started at 946, a total of 100mg propofol given between 9501-3521 for sedation - administered by ED physician, a total of 30 KRIS given between 2995-1349 - administered by ED physician, ET Tube = 23 @ the teeth, pt tolerated procedure well. VSS.
[2024-09-16 10:19] LABS: Lactate 2HR (Lactic Acid Rflx) 3.7 mmol/L (0.7-2.1)
--- NOTE | 2024-09-16 10:25 | PC.NURSE ---
PICC placed at 1025 by ASHOK ARCE, 20g
[2024-09-16] MEDS: ACETAMINOPHEN IV 1,000 MG/100 ML VIAL 400 MG IV ×2 (10:50→16:55)
[2024-09-16 11:20] LABS: Alanine Aminotransferase 22 IU/L (<35); Albumin Globulin Ratio 1.1 (1.0-2.8); Alkaline Phosphatase 64 U/L (38-126); Aspartate Aminotransferase 23 IU/L (14-36); BUN Creatinine Ratio 7.5 (6-22); Bilirubin Total 0.3 mg/dL (0.2-1.3); Blood Urea Nitrogen 8 mg/dL (7-17); Calcium 6.6 mg/dL (8.4-10.2); Carbon Dioxide 17 mmol/L (22-32); Chloride 105 mmol/L (98-107); Estimated Glomerular Filt Rate > 60 mL/min (>60); Globulin 2.7 g/dL (1.7-4.1); HEMOLYSIS < 15 (0-50); Potassium 3.5 mmol/L (3.4-5.1); Sodium 134 mmol/L (137-145); Total Protein 5.7 g/dL (6.3-8.2)
[2024-09-16 11:30] LABS: Glucose 510 mg/dL (70-100)
[2024-09-16] MEDS: INSULIN REGULAR 100 UNIT/ML 3 ML VIAL 15 UNIT IV (12:14)
--- NOTE | 2024-09-16 12:51 | PM.CALLCOV.1 ---
Call Coverage Note Note Date of Patient Contact: 09/16/24 Narrative of Care Provided: 48 F with hx DM here for shortness of breath. Now on mechanical ventilation with high FiO2 requirements. RICKY also with rapid worsening with cr almost doubling over 4 hours. Given rapid progression of respiratory decompensation, concern for possible ARDS with development of diffuse pulmonary infiltrates, I recommend transfer to higher level facility with service porter in house, possible ability for proning or more depending on her clinical course. Suspect Flu with superimposed pneumonia at this time. Recommend MRSA coverage. Has gotten ceftriaxone azithro, recommend vancomycin. Patient initially had DKA, at least evidence of mild dka. Now improved after fluids and IV insulin. Gap is now closed and bicarb is >15. Started on lantus 10 U BID for now with q6h sliding scale.
[2024-09-16] MEDS: DEXTROSE 5%-0.45% NS 1,000 ML 100 ML IV (13:10)
[2024-09-16] MEDS: INSULIN GLARGINE 100 UNIT/ML 3ML PEN 10 UNIT SUBCUT (13:24)
[2024-09-16] MEDS: VANCOMYCIN 1,250 MG/250 ML PIGGYBACK 250 MG IV (13:36)
--- NOTE | 2024-09-16 13:50 | PC.NURSE ---
POC BG continues to be greater >500, ED physician aware, no new orders.
[2024-09-16 14:48] LABS: BUN Creatinine Ratio 8.2 (6-22); Blood Urea Nitrogen 12 mg/dL (7-17); Calcium 7.3 mg/dL (8.4-10.2); Carbon Dioxide 19 mmol/L (22-32); Chloride 100 mmol/L (98-107); Estimated Glomerular Filt Rate 44 mL/min (>60); HEMOLYSIS < 15 (0-50); Potassium 4.9 mmol/L (3.4-5.1); Sodium 130 mmol/L (137-145)
[2024-09-16 14:51] LABS: Lactate (Lactic Acid) 4.2 mmol/L (0.7-2.1)
[2024-09-16 14:58] LABS: Glucose 619 mg/dL (70-100)
[2024-09-16 14:58] LABS: Base Excess ABG -9.4 mmol/L (-2-3); Blood Gas Collection Site Left Brachial; Blood Gas Mode Assist Cont Ventilat; Delivery System Adult Ventilator; HCO3 ABG 22 mmol/L (23-27); Oxygen Saturation ABG 100 % (95-100); PCO2 ABG 79.7 mmHg (35-45); PEEP 5; PO2 ABG 422 mmHg (80-100); Respiratory Rate 18; TCO2 ABG 23 mmol/L (23-27); pH ABG 7.06 (7.35-7.45)
[2024-09-16 15:10] LABS: Blood Gas Collection Site Left Brachial; Blood Gas Mode Assist Cont Ventilat; Delivery System Adult Ventilator; HCO3 ABG 21 mmol/L (23-27); Oxygen Saturation ABG 98 % (95-100); PCO2 ABG 78.1 mmHg (35-45); PO2 ABG 144 mmHg (80-100); TCO2 ABG 22 mmol/L (23-27); pH ABG 7.04 (7.35-7.45)
--- NOTE | 2024-09-16 15:12 | DI.RAD.S_ITS ---
P wall ROCEDURE: XR CHEST 1V INDICATIONS: Re-evaluate ET tube TECHNIQUE: One view of the chest was acquired. COMPARISON: [facility], CR, XR CHEST 1V, 09/16/2024, 9:52. FINDINGS: Surgical changes and devices: ET tube remains in satisfactory position, as does OG tube. Lungs and pleura: Extensive bilateral pulmonary infiltrates, with possible progression in the lung bases. Mediastinum: Mediastinal contours appear normal. Heart size is normal. Bones and chest wall: No suspicious bony lesions. Overlying soft tissues appear unremarkable. IMPRESSION: Lines and tubes in satisfactory position. Question interval worsening of pulmonary status. Dictated by: Micah Henao M.D. on 09/16/2024 at 15:50 Approved by: Micah Henao M.D. on 09/16/2024 at 15:51
--- NOTE | 2024-09-16 15:20 | PC.NURSE ---
ET tube pulled back by respiratory therapy with provider in room and tube is now positioned to 21 at the teeth.
[2024-09-16] MEDS: SUCCINYLCHOLINE 200 MG/10 ML VIAL 100 MG IV (15:32)
[2024-09-16] MEDS: FUROSEMIDE 60 MG in SODIUM CHLORIDE 0.9% 50 ML 112 MG IV (15:33)
--- NOTE | 2024-09-16 15:40 | PC.NURSE ---
One time dose of Succinylcholine given to ease pt work of breathing, see EMAR. Pt appears more comfortable and ventilatory settings adjusted by respiratory therapy.
[2024-09-16] MEDS: INSULIN DRIP PREMIX 100 UNIT/100 ML PLAST..BAG 6 UNIT IV (16:00)
[2024-09-16 16:04] LABS: Reflexed Lactate in 2 Hours Y
--- NOTE | 2024-09-16 16:24 | DI.RAD.S_ITS ---
PROCEDURE: XR CHEST FOR PICC 1V INDICATIONS: line placement COMPARISON: [facility], , XR CHEST 1V, 09/16/2024, 15:07. FINDINGS: PICC was placed by the intravenous therapy team from the right side. Fluoroscopic spot film demonstrates the tip of PICC projecting to the area of mid SVC. IMPRESSION: Tip of PICC projects to the area of mid SVC. Dictated by: Bhumika Nelson M.D. on 09/16/2024 at 16:56 Approved by: Bhumika Nelson M.D. on 09/16/2024 at 16:57
[2024-09-16 16:46] LABS: BUN Creatinine Ratio 8.9 (6-22); Blood Urea Nitrogen 16 mg/dL (7-17); Calcium 7.6 mg/dL (8.4-10.2); Carbon Dioxide 20 mmol/L (22-32); Chloride 100 mmol/L (98-107); Estimated Glomerular Filt Rate 35 mL/min (>60); HEMOLYSIS < 15 (0-50); Potassium 5.3 mmol/L (3.4-5.1); Sodium 129 mmol/L (137-145)
[2024-09-16 16:47] LABS: Lactate 2HR (Lactic Acid Rflx) 2.7 mmol/L (0.7-2.1)
[2024-09-16 16:49] LABS: Glucose 514 mg/dL (70-100)
[2024-09-16] MEDS: [UNRECOGNIZED DRUG - OTHER] IV ×2 (16:57→20:43)
[2024-09-16] MEDS: SODIUM CHLORIDE 0.9% IV ×2 (16:57→20:43)
[2024-09-16] MEDS: fentaNYL 1,000 MCG in DEXTROSE 5% IN WATER 230 ML 45.359 MCG IV ×2 (17:10→20:42)
--- NOTE | 2024-09-16 17:21 | PC.NURSE ---
1655, BP 81/54, ED physician aware, no new orders, continuing to monitor BP trend as we increase Succ, Succ currently @ 2mg/min. production controller at bedside with primary RN.
--- NOTE | 2024-09-16 17:25 | PC.NURSE ---
Temp 104.4. ice packs applied to axillary, groin and behind the neck. academic affairs coordinator and Primary at bedside. ED physician aware, no new orders.
--- NOTE | 2024-09-16 17:32 | PC.NURSE ---
Order placed in MAR for nor-epi, per ED physician hold until needed. sheet metal operator aware.
[2024-09-16 17:44] LABS: Base Excess ABG -10.4 mmol/L (-2-3); Blood Gas Collection Site Right Radial; Blood Gas Mode Assist Cont Ventilat; Delivery System Adult Ventilator; HCO3 ABG 21 mmol/L (23-27); Oxygen Saturation ABG 91 % (95-100); PEEP 8; PO2 ABG 87 mmHg (80-100); Respiratory Rate 27; TCO2 ABG 21 mmol/L (23-27); pH ABG 7.08 (7.35-7.45)
--- NOTE | 2024-09-16 17:50 | PM.CN.EICU ---
History of Present Illness Consult details IF CAMERA ACTIVATED, patient seen via real-time interactive audiovisual communication: Camera not activated Chief complaint: hard time breathing Consent obtained for tele-disassembler product care: Yes Patient Location: ICU Provider location (State): [place] Other participants/roles: ed [facility], [facility] Medical History (Updated 09/16/24 @ 10:19 by Carl Pineda MD) Bipolar disorder ADHD (attention deficit hyperactivity disorder) evaluation Surgical History History of Family History Other Family history non-contributory Social History (Updated 09/07/21 @ 14:29 by POONAM Liu) Smoking Status: Current every day smoker Current Medications Current Medications Medications: Home Medications bupropion HCl 150 mg tablet,12 hr sustained-release 2 tab PO QAM 06/23/18 [History Confirmed 10/11/18] dextroamphetamine-amphetamine 10 mg tablet 1 tab PO BID 06/23/18 [History Confirmed 10/11/18] hydroxyzine pamoate 25 mg capsule 1 cap PO TID PRN Anxiety 06/23/18 [History Confirmed 10/11/18] quetiapine 400 mg tablet 1 tab PO BEDTIME 06/23/18 [History Confirmed 10/11/18] hydrocodone 5 mg-acetaminophen 325 mg tablet ([place]) 1 tab PO Q4-6H PRN acute wrist pain #4 tabs 10/11/18 [Rx] magnesium citrate 37.5 ml PO BID PRN constipation #296 mL 09/07/21 [Rx] Visit Medications (administered) Generic Name Dose Route Start Last Admin Trade Name Freq PRN Reason Stop Dose Admin Fentanyl 1,000 mcg/ Dextrose 250 mls @ 15.876 mls/hr 09/16/24 09:45 09/16/24 14:57 IV 2 mcg/kg/hr TITRATE MIKI 45.359 mls/hr Titration Protocol 0.7 MCG/KG/HR Propofol 1,000 mg in 100 mls @ 2.722 mls/hr 09/16/24 09:45 09/16/24 14:58 Diprivan IV 30 mcg/kg/min TITRATE MIKI 16.329 mls/hr Titration Protocol 5 MCG/KG/MIN Acetaminophen 1,000 mg in 100 mls @ 400 mls/hr 09/16/24 10:45 09/16/24 16:55 Ofirmev IV 400 mls/hr Q6H PRN Administration Fever/Mild Pain (1-3) Dextrose/Sodium Chloride 1,000 mls @ 100 mls/hr 09/16/24 12:15 09/16/24 15:04 Dextrose 5%-0.45% Ns IV Infused CONT MIKI Infusion INSULIN DRIP PREMIX 100 unit in 100 mls @ 6 mls/hr 09/16/24 15:45 09/16/24 16:00 Myxredlin Drip Premix IV 6 mls/hr TITRATE MIKI 6 mls/hr Administration Protocol Succinylcholine Chloride 500 500 mls @ 30 mls/hr 09/16/24 16:15 09/16/24 17:15 mg/ Sodium Chloride IV 2 mg/min CONT MIKI 120 mls/hr Titration Protocol 0.5 MG/MIN Exam Vital Signs (past 8 hours): - 09/16/24 09:55 09/16/24 09:55 09/16/24 10:00 Temperature Pulse Rate 141 H 140 H Respiratory Rate 20 13 Blood Pressure 127/75 Pulse Oximetry 97 95 Oxygen Delivery Method Mechanical Ventilation Mechanical Ventilation 09/16/24 10:00 09/16/24 10:05 09/16/24 10:05 Temperature Pulse Rate 135 H Respiratory Rate 15 Blood Pressure 114/68 118/70 Pulse Oximetry 95 Oxygen Delivery Method Mechanical Ventilation 09/16/24 10:30 09/16/24 10:31 09/16/24 10:31 Temperature 101.5 F H 101.5 F H Pulse Rate 143 H 143 H Respiratory Rate 18 18 Blood Pressure 132/103 H Pulse Oximetry 96 96 Oxygen Delivery Method Mechanical Ventilation 09/16/24 10:35 09/16/24 10:35 09/16/24 10:40 Temperature 101.7 F H Pulse Rate 144 H Respiratory Rate 19 Blood Pressure 132/97 H 138/96 H Pulse Oximetry 97 Oxygen Delivery Method 09/16/24 10:40 09/16/24 10:45 09/16/24 10:45 Temperature 101.7 F H 101.7 F H Pulse Rate 144 H 144 H Respiratory Rate 21 22 Blood Pressure 157/81 H Pulse Oximetry 96 95 Oxygen Delivery Method 09/16/24 10:50 09/16/24 10:50 09/16/24 10:55 Temperature 101.7 F H 101.7 F H Pulse Rate 144 H 144 H Respiratory Rate 21 34 H Blood Pressure 135/84 Pulse Oximetry 96 96 Oxygen Delivery Method 09/16/24 10:55 09/16/24 11:00 09/16/24 11:00 Temperature 101.7 F H Pulse Rate 144 H Respiratory Rate 34 H Blood Pressure 125/78 117/66 Pulse Oximetry 96 Oxygen Delivery Method 09/16/24 11:05 09/16/24 11:05 09/16/24 11:10 Temperature 99.7 F H 100.6 F H Pulse Rate 141 H 140 H Respiratory Rate 29 H 32 H Blood Pressure 117/68 Pulse Oximetry 96 96 Oxygen Delivery Method Mechanical Ventilation 09/16/24 11:10 09/16/24 11:15 09/16/24 11:15 Temperature 100.9 F H Pulse Rate 138 H Respiratory Rate 35 H Blood Pressure 110/61 118/68 Pulse Oximetry 96 Oxygen Delivery Method Mechanical Ventilation 09/16/24 11:20 09/16/24 11:20 09/16/24 11:25 Temperature 101.1 F H 101.1 F H Pulse Rate 138 H 138 H Respiratory Rate 26 H 25 H Blood Pressure 114/69 Pulse Oximetry 96 96 Oxygen Delivery Method Mechanical Ventilation 09/16/24 11:25 09/16/24 11:30 09/16/24 11:30 Temperature 101.1 F H Pulse Rate 135 H Respiratory Rate 24 Blood Pressure 115/68 110/65 Pulse Oximetry 94 Oxygen Delivery Method Mechanical Ventilation 09/16/24 11:35 09/16/24 11:35 09/16/24 11:40 Temperature 101.1 F H Pulse Rate 135 H Respiratory Rate 23 Blood Pressure 111/61 113/66 Pulse Oximetry 95 Oxygen Delivery Method 09/16/24 11:40 09/16/24 11:56 09/16/24 11:56 Temperature 101.1 F H 100.8 F H Pulse Rate 133 H 130 H Respiratory Rate 22 20 Blood Pressure 110/63 Pulse Oximetry 95 97 Oxygen Delivery Method 09/16/24 12:00 09/16/24 12:30 09/16/24 13:00 Temperature 100.8 F H 100.2 F H 99.9 F H Pulse Rate 132 H 125 H 125 H Respiratory Rate 20 19 19 Blood Pressure Pulse Oximetry 95 93 94 Oxygen Delivery Method Mechanical Ventilation 09/16/24 13:30 09/16/24 14:00 09/16/24 14:30 Temperature 99.7 F H 99.7 F H 99.9 F H Pulse Rate 125 H 127 H 128 H Respiratory Rate 18 18 18 Blood Pressure Pulse Oximetry 94 95 96 Oxygen Delivery Method 09/16/24 14:48 09/16/24 14:48 09/16/24 14:50 Temperature 100.2 F H Pulse Rate 129 H Respiratory Rate 16 Blood Pressure 114/70 116/71 Pulse Oximetry 99 Oxygen Delivery Method 09/16/24 14:50 09/16/24 14:55 09/16/24 14:55 Temperature 100.2 F H 100.4 F H Pulse Rate 129 H 129 H Respiratory Rate 15 16 Blood Pressure 106/67 Pulse Oximetry 99 99 Oxygen Delivery Method 09/16/24 15:00 09/16/24 15:24 09/16/24 15:24 Temperature 100.4 F H 101.3 F H Pulse Rate 129 H 134 H Respiratory Rate 16 24 Blood Pressure 120/73 Pulse Oximetry 98 98 Oxygen Delivery Method 09/16/24 15:25 09/16/24 15:25 09/16/24 15:30 Temperature 101.3 F H 101.5 F H Pulse Rate 134 H 137 H Respiratory Rate 23 22 Blood Pressure 120/71 Pulse Oximetry 98 98 Oxygen Delivery Method 09/16/24 15:30 09/16/24 15:35 09/16/24 15:35 Temperature 101.5 F H Pulse Rate 135 H Respiratory Rate 22 Blood Pressure 113/58 L 114/57 L Pulse Oximetry 100 Oxygen Delivery Method 09/16/24 15:40 09/16/24 15:40 09/16/24 15:45 Temperature 101.8 F H Pulse Rate 140 H Respiratory Rate 27 H Blood Pressure 112/62 96/64 Pulse Oximetry 98 Oxygen Delivery Method 09/16/24 15:45 09/16/24 15:47 09/16/24 15:47 Temperature 102.0 F H 102.0 F H Pulse Rate 140 H 140 H Respiratory Rate 27 H 27 H Blood Pressure 101/69 Pulse Oximetry 96 97 Oxygen Delivery Method 09/16/24 15:50 09/16/24 15:50 09/16/24 15:55 Temperature 102.2 F H Pulse Rate 141 H Respiratory Rate 28 H Blood Pressure 108/67 108/69 Pulse Oximetry 97 Oxygen Delivery Method 09/16/24 15:55 09/16/24 16:00 09/16/24 16:00 Temperature 102.2 F H 102.6 F H Pulse Rate 143 H 143 H Respiratory Rate 27 H 27 H Blood Pressure 104/60 Pulse Oximetry 98 98 Oxygen Delivery Method 09/16/24 16:05 09/16/24 16:05 09/16/24 16:10 Temperature 102.6 F H 102.7 F H Pulse Rate 143 H 145 H Respiratory Rate 27 H 27 H Blood Pressure 102/58 L Pulse Oximetry 97 98 Oxygen Delivery Method Mechanical Ventilation 09/16/24 16:10 09/16/24 16:15 09/16/24 16:15 Temperature 102.9 F H Pulse Rate 145 H Respiratory Rate 28 H Blood Pressure 103/58 L 99/52 L Pulse Oximetry 97 Oxygen Delivery Method Mechanical Ventilation 09/16/24 16:20 09/16/24 16:20 09/16/24 16:25 Temperature 103.1 F H 103.1 F H Pulse Rate 145 H 145 H Respiratory Rate 27 H 27 H Blood Pressure 112/55 L Pulse Oximetry 97 96 Oxygen Delivery Method Mechanical Ventilation 09/16/24 16:25 09/16/24 16:30 09/16/24 16:30 Temperature 103.3 F H Pulse Rate 145 H Respiratory Rate 27 H Blood Pressure 100/59 L 99/55 L Pulse Oximetry 96 Oxygen Delivery Method Mechanical Ventilation 09/16/24 16:35 09/16/24 16:35 09/16/24 16:40 Temperature 103.5 F H 103.6 F H Pulse Rate 149 H 149 H Respiratory Rate 33 H 27 H Blood Pressure 92/54 L Pulse Oximetry 96 94 Oxygen Delivery Method 09/16/24 16:40 09/16/24 16:45 09/16/24 16:45 Temperature 103.6 F H Pulse Rate 149 H Respiratory Rate 27 H Blood Pressure 106/83 96/54 L Pulse Oximetry 95 Oxygen Delivery Method 09/16/24 16:50 09/16/24 16:50 09/16/24 16:55 Temperature 103.8 F H 103.8 F H Pulse Rate 149 H 149 H Respiratory Rate 27 H 27 H Blood Pressure 90/53 L Pulse Oximetry 96 95 Oxygen Delivery Method 09/16/24 16:55 09/16/24 17:00 09/16/24 17:00 Temperature 104.0 F H Pulse Rate 146 H Respiratory Rate 27 H Blood Pressure 81/54 L 88/61 L Pulse Oximetry 97 Oxygen Delivery Method Mechanical Ventilation 09/16/24 17:05 09/16/24 17:05 09/16/24 17:10 Temperature 104.2 F H 104.2 F H Pulse Rate 146 H 148 H Respiratory Rate 25 H 26 H Blood Pressure 90/52 L Pulse Oximetry 97 97 Oxygen Delivery Method Mechanical Ventilation 09/16/24 17:10 09/16/24 17:15 09/16/24 17:15 Temperature 104.2 F H Pulse Rate 146 H Respiratory Rate 23 Blood Pressure 93/55 L 99/55 L Pulse Oximetry 97 Oxygen Delivery Method Mechanical Ventilation 09/16/24 17:20 09/16/24 17:20 09/16/24 17:30 Temperature 104.2 F H 104.4 F H Pulse Rate 148 H 149 H Respiratory Rate 25 H 27 H Blood Pressure 81/57 L Pulse Oximetry 96 96 Oxygen Delivery Method Mechanical Ventilation 09/16/24 17:31 09/16/24 17:31 Temperature 104.4 F H Pulse Rate 149 H Respiratory Rate 27 H Blood Pressure 99/54 L Pulse Oximetry 97 Oxygen Delivery Method Oxygen Delivery Method Mechanical Ventilation Oxygen Flow Rate 5 Objective Labs 09/16/24 06:30 09/16/24 16:27 Labs: Laboratory Results - last 24 hr 09/16/24 09/16/24 09/16/24 06:30 07:00 07:51 WBC 15.8 H RBC 5.37 H Hgb 15.4 Hct 45.9 MCV 85.6 MCH 28.6 MCHC 33.4 RDW 13.4 Plt Count 198 Neut % (Auto) 82.1 H Lymph % (Auto) 11.1 L [place] % (Auto) 6.6 Eos % (Auto) 0.0 L Baso % (Auto) 0.2 Neut # (Auto) 78617 H Lymph # (Auto) 1800 [place] # (Auto) 1000 H Eos # (Auto) 0 Baso # (Auto) 0 PT 13.7 H INR 1.2 ABG Sample Site ABG pH ABG pCO2 ABG pO2 ABG HCO3 ABG Total CO2 ABG O2 Saturation ABG Base Excess [place] Test VBG pH VBG pCO2 VBG pO2 VBG HCO3 VBG Total CO2 VBG O2 Saturation VBG Base Excess Respiration Rate O2 Delivery Device Mode of Support FiO2 % PEEP or CPAP Sodium 128 L Potassium 3.8 Chloride 98 Carbon Dioxide 15 L BUN 6 L Creatinine 0.67 Estimated GFR > 60 BUN/Creatinine Ratio 9.0 Glucose 502 H* Hemoglobin A1c 10.0 H Lactate 3.4 H Calcium 8.7 Total Bilirubin 0.7 AST 26 ALT 25 Alkaline Phosphatase 87 Total Creatine Kinase 63 Troponin I < 0.012 NT-Pro-B Natriuret Pep 142 H Total Protein 7.0 Albumin 4.0 Globulin 3.0 Albumin/Globulin Ratio 1.3 Procalcitonin 2.00 H Ketones 1.17 H Chlamy pneumoniae PCR Not detected Adenovirus (PCR) Not detected B. pertussis DNA (PCR) Not detected B.parapertussis DNA PCR Not detected Coronavirus OC43 (PCR) Not detected Coronavirus HKU1 (PCR) Not detected Coronavirus 229E (PCR) Not detected SARS-CoV-2 (PCR) Not detected Coronavirus NL63 (PCR) Not detected Human Metapneumovir PCR Not detected Influ A (H1N1 [place]) PCR Detected H Influenza Type B (PCR) Not detected M. pneumoniae (PCR) Not detected Parainfluenza 1 (PCR) Not detected Parainfluenza 2 (PCR) Not detected Parainfluenza 3 (PCR) Not detected Parainfluenza 4 (PCR) Not detected RSV (PCR) Not detected Entero/Rhino (PCR) Not detected 09/16/24 09/16/24 09/16/24 08:44 10:02 10:59 WBC RBC Hgb Hct MCV MCH MCHC RDW Plt Count Neut % (Auto) Lymph % (Auto) [place] % (Auto) Eos % (Auto) Baso % (Auto) Neut # (Auto) Lymph # (Auto) [place] # (Auto) Eos # (Auto) Baso # (Auto) PT INR ABG Sample Site ABG pH ABG pCO2 ABG pO2 ABG HCO3 ABG Total CO2 ABG O2 Saturation ABG Base Excess Edward Test VBG pH 7.31 L VBG pCO2 32.8 L VBG pO2 63 H VBG HCO3 16 L VBG Total CO2 16 L VBG O2 Saturation 90 H VBG Base Excess -8.7 L Respiration Rate O2 Delivery Device Mode of Support FiO2 % PEEP or CPAP Sodium 134 L Potassium 3.5 Chloride 105 Carbon Dioxide 17 L BUN 8 Creatinine 1.06 H Estimated GFR > 60 BUN/Creatinine Ratio 7.5 Glucose 510 H* Hemoglobin A1c Lactate 3.7 H Calcium 6.6 L Total Bilirubin 0.3 AST 23 ALT 22 Alkaline Phosphatase 64 Total Creatine Kinase Troponin I NT-Pro-B Natriuret Pep Total Protein 5.7 L Albumin 3.0 L Globulin 2.7 Albumin/Globulin Ratio 1.1 Procalcitonin Ketones Chlamy pneumoniae PCR Adenovirus (PCR) B. pertussis DNA (PCR) B.parapertussis DNA PCR Coronavirus OC43 (PCR) Coronavirus HKU1 (PCR) Coronavirus 229E (PCR) SARS-CoV-2 (PCR) Coronavirus NL63 (PCR) Human Metapneumovir PCR Influ A (H1N1 [place]) PCR Influenza Type B (PCR) M. pneumoniae (PCR) Parainfluenza 1 (PCR) Parainfluenza 2 (PCR) Parainfluenza 3 (PCR) Parainfluenza 4 (PCR) RSV (PCR) Entero/Rhino (PCR) 09/16/24 09/16/24 09/16/24 11:55 14:11 15:05 WBC RBC Hgb Hct MCV MCH MCHC RDW Plt Count Neut % (Auto) Lymph % (Auto) [place] % (Auto) Eos % (Auto) Baso % (Auto) Neut # (Auto) Lymph # (Auto) [place] # (Auto) Eos # (Auto) Baso # (Auto) PT INR ABG Sample Site Left brachial Left brachial ABG pH 7.06 L* 7.04 L* ABG pCO2 79.7 H* 78.1 H* ABG pO2 422 H* 144 H ABG HCO3 22 L 21 L ABG Total CO2 23 22 L ABG O2 Saturation 100 98 ABG Base Excess -9.4 L -11.0 L Edward Test N/a N/a VBG pH VBG pCO2 VBG pO2 VBG HCO3 VBG Total CO2 VBG O2 Saturation VBG Base Excess Respiration Rate 18 O2 Delivery Device Adult ventilator Adult ventilator Mode of Support Assist cont ventilat Assist cont ventilat FiO2 % 100 % PEEP or CPAP 5 Sodium 130 L Potassium 4.9 D Chloride 100 Carbon Dioxide 19 L BUN 12 Creatinine 1.46 H Estimated GFR 44 L BUN/Creatinine Ratio 8.2 Glucose 619 H* Hemoglobin A1c Lactate 4.2 H* Calcium 7.3 L Total Bilirubin AST ALT Alkaline Phosphatase Total Creatine Kinase Troponin I NT-Pro-B Natriuret Pep Total Protein Albumin Globulin Albumin/Globulin Ratio Procalcitonin Ketones Chlamy pneumoniae PCR Adenovirus (PCR) B. pertussis DNA (PCR) B.parapertussis DNA PCR Coronavirus OC43 (PCR) Coronavirus HKU1 (PCR) Coronavirus 229E (PCR) SARS-CoV-2 (PCR) Coronavirus NL63 (PCR) Human Metapneumovir PCR Influ A (H1N1 [place]) PCR Influenza Type B (PCR) M. pneumoniae (PCR) Parainfluenza 1 (PCR) Parainfluenza 2 (PCR) Parainfluenza 3 (PCR) Parainfluenza 4 (PCR) RSV (PCR) Entero/Rhino (PCR) 09/16/24 09/16/24 16:27 17:41 WBC RBC Hgb Hct MCV MCH MCHC RDW Plt Count Neut % (Auto) Lymph % (Auto) [place] % (Auto) Eos % (Auto) Baso % (Auto) Neut # (Auto) Lymph # (Auto) [place] # (Auto) Eos # (Auto) Baso # (Auto) PT INR ABG Sample Site Right radial ABG pH 7.08 L* ABG pCO2 70.0 H* ABG pO2 87 ABG HCO3 21 L ABG Total CO2 21 L ABG O2 Saturation 91 L ABG Base Excess -10.4 L Edward Test N/a VBG pH VBG pCO2 VBG pO2 VBG HCO3 VBG Total CO2 VBG O2 Saturation VBG Base Excess Respiration Rate 27 O2 Delivery Device Adult ventilator Mode of Support Assist cont ventilat FiO2 % 80 % PEEP or CPAP 8 Sodium 129 L Potassium 5.3 H Chloride 100 Carbon Dioxide 20 L BUN 16 Creatinine 1.80 H Estimated GFR 35 L BUN/Creatinine Ratio 8.9 Glucose 514 H* Hemoglobin A1c Lactate 2.7 H Calcium 7.6 L Total Bilirubin AST ALT Alkaline Phosphatase Total Creatine Kinase Troponin I NT-Pro-B Natriuret Pep Total Protein Albumin Globulin Albumin/Globulin Ratio Procalcitonin Ketones Chlamy pneumoniae PCR Adenovirus (PCR) B. pertussis DNA (PCR) B.parapertussis DNA PCR Coronavirus OC43 (PCR) Coronavirus HKU1 (PCR) Coronavirus 229E (PCR) SARS-CoV-2 (PCR) Coronavirus NL63 (PCR) Human Metapneumovir PCR Influ A (H1N1 [place]) PCR Influenza Type B (PCR) M. pneumoniae (PCR) Parainfluenza 1 (PCR) Parainfluenza 2 (PCR) Parainfluenza 3 (PCR) Parainfluenza 4 (PCR) RSV (PCR) Entero/Rhino (PCR) Assessment & Plan Assessment and plan (1) Respiratory failure: Qualifiers: Chronicity: acute Respiratory failure complication: hypoxia Qualified Code(s): J96.01 - Acute respiratory failure with hypoxia Status: Acute Plan Was breifly consulted by ED on this very ill 48 year old, now intubated with FLU and ARDS. currently on high settings with pf ratio < 150 and hypercapnea. I agree withparalysis, we should limit dyssynchrony as much as possible in this patient unclear if she has any elemtn of obstrructive diease, but I would starta ketamine gtt to help with any bronchodilation if that is the case would avoid steroids for now as it can worsen mortality and morbidity in flu ards ( unless its obvious from copd and asthma) trend ABG LTVV @ 6 cc kg of ibw pending transfer, and may need ecmo. Would prone her if she worsens please call for any questions, we are avilable 01/04 and the ICU cart can be brought down if our assistnace is needed., Time-Based Coding :: [TOTAL MINUTES] spent with patient and on the chart (including review of chart, obtaining history, exam, reviewing outside data, placing orders, documenting exam and treatment plan, and counseling patient) on [DATE].
[2024-09-16] MEDS: propofoL 1,000 MG/100 ML VIAL 16.329 MG IV ×2 (17:58→20:41)
[2024-09-16] MEDS: NOREPINEPHRINE BITARTRATE/D5W 4 MG/250 ML PLAST..BAG 33.8 MG IV (17:59)
--- NOTE | 2024-09-16 18:00 | PC.NURSE ---
Dayshift provider would like to keep pt on Algorithm 1 for insulin drip. Pt blood sugar is trending down. Drip remains at 6 units(6mls/hr).
[2024-09-16 20:32] LABS: Allen Test for ABG Passed? Positive; Base Excess ABG -11.1 mmol/L (-2-3); Blood Gas Collection Site Left Radial; Blood Gas Mode SIMV; Delivery System Adult Ventilator; HCO3 ABG 20 mmol/L (23-27); Oxygen Saturation ABG 100 % (95-100); PCO2 ABG 63.5 mmHg (35-45); PEEP 8; PO2 ABG 223 mmHg (80-100); Respiratory Rate 35; TCO2 ABG 20 mmol/L (23-27)
[2024-09-16] MEDS: NOREPINEPHRINE BITARTRATE/D5W 4 MG/250 ML PLAST..BAG 149.685 MG IV ×2 (20:39→20:44)
[2024-09-16 20:45] LABS: BUN Creatinine Ratio 7.4 (6-22); Blood Urea Nitrogen 17 mg/dL (7-17); Calcium 7.3 mg/dL (8.4-10.2); Carbon Dioxide 16 mmol/L (22-32); Chloride 99 mmol/L (98-107); Estimated Glomerular Filt Rate 26 mL/min (>60); HEMOLYSIS < 15 (0-50); Potassium 3.2 mmol/L (3.4-5.1); Sodium 124 mmol/L (137-145)
[2024-09-16 20:51] LABS: Glucose 517 mg/dL (70-100)
--- NOTE | 2024-09-16 20:54 | PC.NURSE ---
Pt blood sugar via PICC Line draw elevated, 517. Rechecked with finger stick POC at bedside and blood sugar is 317, in line with the trending down of blood sugare after putting pt on insulin drip. One of the pt medication drips does have dextrose and likely is the reason for lab work elevation.
--- NOTE | 2024-09-16 21:27 | PC.NURSE ---
Pt transferred to transport [facility] without decompensation. Informed ambulance crew of updated blood sugar by finger stick POC of 275 and need to decrease insulin drip before departure as they had already changed meds to their pump. Alpesh, spouse, took all pt belongings home with him, including jewelry that was in specimen cup and car keys. Meds needed en route sent with crew.
== END 2024-09-16 21:30 | disposition short-term general hospital (02) ==
PROVIDERS: Emergency Medicine; Emergency Provider Emergency Medicine
DX: J80 Acute respiratory distress syndrome (principal); R00.0 Tachycardia, unspecified; Z79.84 Long term (current) use of oral hypoglycemic drugs; Z91.148 Patient's other noncompliance with medication regimen for other reason; R04.2 Hemoptysis; J18.9 Pneumonia, unspecified organism; E11.10 Type 2 diabetes mellitus with ketoacidosis without coma; F17.200 Nicotine dependence, unspecified, uncomplicated
CPT/HCPCS: 31500; 36415; 36569; 36600; 71045; 71275; 80048; 80053; 82009; 82550; 82805; 82962; 83036; 83605; 83880; 84145; 84484; 85025; 85610; 87040; 87633; 93005; 93010; 94640; 94799; 96365; 96366; 96367; 96368; 96372; 96375; 96376; 99285; 99291; 99292; J0134; J0330; J0696; J1171; J1940; J2270; J2704; J3010; J7613; Q9967